=== PATIENT | female | born 1940 | race Caucasian/White ===

== ENCOUNTER 2023-10-19 07:04 | Inpatient (IN) ==
--- NOTE | 2023-09-26 10:02 | PAT Medication Instructions ---
Medication Instructions Date of Service September 26, 2023 Home Medications acetaminophen 650 mg tablet,extended release 1,300 mg PO Q12H amlodipine 5 mg tablet 5 mg PO BID ascorbic acid (vitamin C) 500 mg tablet (Vitamin C) 500 mg PO QAM aspirin 81 mg capsule 81 mg PO QPM carvedilol 6.25 mg tablet 6.25 mg PO BID coQ10 (ubiquinol) 200 mg capsule 200 mg PO QAM diphenhydramine HCl 25 mg capsule (Benadryl) 25 - 50 mg PO HS PRN Sleep ezetimibe 10 mg tablet 10 mg PO QPM fexofenadine 180 mg tablet 180 mg PO QAM glucosamine 750 fj-berkfofupnq-xni no1 644 mg-C 30 mg-jennifer 1 mg tablet (Osteo Bi-Flex Triple Strength) 1 tab PO BID hydrochlorothiazide 25 mg tablet 25 mg PO QAM levothyroxine 25 mcg tablet 25 mcg PO 5XWK levothyroxine 25 mcg tablet 50 mcg PO 2XWK losartan 100 mg tablet 100 mg PO QAM melatonin 5 mg tablet 5 - 10 mg PO HS PRN Sleep montelukast 10 mg tablet 10 mg PO HS multivitamin 1 tab PO HS pravastatin 20 mg tablet 20 mg PO QPM trazodone 50 mg tablet 50 mg PO HS PRN Sleep MEDICATION INSTRUCTIONS: ASK your prescriber and surgeon aspirin 81 mg capsule 81 mg PO QPM STOP taking 2 weeks before surgery coQ10 (ubiquinol) 200 mg capsule 200 mg PO QAM glucosamine 750 ik-hmluojyicqj-agy no1 644 mg-C 30 mg-jennifer 1 mg tablet (Osteo Bi-Flex Triple Strength) 1 tab PO BID DO NOT take the morning of surgery hydrochlorothiazide 25 mg tablet 25 mg PO QAM losartan 100 mg tablet 100 mg PO QAM ascorbic acid (vitamin C) 500 mg tablet (Vitamin C) 500 mg PO QAM fexofenadine 180 mg tablet 180 mg PO QAM Take morning of surgery With a small sip of water, OTHERWISE NOTHING TO EAT OR DRINK AFTER MIDNIGHT: carvedilol 6.25 mg tablet 6.25 mg PO BID acetaminophen 650 mg tablet,extended release 1,300 mg PO Q12H (if needed) amlodipine 5 mg tablet 5 mg PO BID levothyroxine 25 mcg tablet (whichever dose is scheduled for that day) Take evening before surgery carvedilol 6.25 mg tablet 6.25 mg PO BID acetaminophen 650 mg tablet,extended release 1,300 mg PO Q12H (if needed) amlodipine 5 mg tablet 5 mg PO BID melatonin 5 mg tablet 5 - 10 mg PO HS PRN Sleep montelukast 10 mg tablet 10 mg PO HS multivitamin 1 tab PO HS pravastatin 20 mg tablet 20 mg PO QPM trazodone 50 mg tablet 50 mg PO HS PRN Sleep diphenhydramine HCl 25 mg capsule (Benadryl) 25 - 50 mg PO HS PRN Sleep ezetimibe 10 mg tablet 10 mg PO QPM Other Notes If you have any questions please call us at [phone] or [phone] or [phone] or [phone]
--- NOTE | 2023-09-29 10:59 | Anesthesiology Consultation ---
Date of Service September 29, 2023 Assessment & Plan (1) Encounter for pre-operative examination: Plan - [facility] PCP pre-op 10/16/23. - echocardiogram at [facility] 10/11/23. - Outpatient joint assessment: Patient is currently scheduled for inpatient pathway. If re-evaluated and patient/surgeon requests outpatient pathway, patient is not recommended candidate for outpatient joint program from anesthesia standpoint. Chart Review Chart Review: Pending: Refer to Additional Notes / Consult section and Patient seen in Pre Admission Testing Teaching & Discussion Pre-Anesthesia Teaching/Discussion Notes: Instructed NPO after midnight before surgery, except medications with 15 cc of water. Medication instructions provided according to the PAT guidelines. History Surgery Operation Date: 10/19/23 14:30 Proposed Procedures p Left Total Knee Arthroplasty - Reji Gasca MD Height/Weight Height: 5 ft 3.75 in Weight: 90.9 kg Allergies Allergy/AdvReac Type Severity Reaction Status Date / Time SUSANA Inhibitors Allergy Severe facial Verified 09/25/23 15:16 swelling, difficulty breathing Penicillins Allergy Severe hives, Verified 09/25/23 15:16 throat swelling quinapril Allergy Severe angioedema Verified 09/28/23 16:13 diltiazem Allergy Intermediate itching, Verified 09/28/23 16:13 rash oxycodone Allergy Intermediate GI upset Verified 09/28/23 16:13 hydrocodone Allergy Unknown Verified 09/28/23 16:13 meloxicam Allergy Unknown Verified 09/28/23 16:13 salicylates Allergy Unknown Verified 09/28/23 16:13 aliskiren [From Tekturna] AdvReac Intermediate headaches Verified 09/28/23 16:13 citalopram AdvReac Intermediate apathy Verified 09/28/23 16:13 codeine AdvReac Mild Gastrointestinal Verified 09/25/23 15:16 Upset Medications Home Medications Medication Instructions Recorded Confirmed Last Taken acetaminophen 650 mg 1,300 mg PO Q12H 09/25/23 09/25/23 Unknown tablet,extended release amlodipine 5 mg tablet 5 mg PO BID 09/25/23 09/25/23 Unknown ascorbic acid (vitamin C) 500 mg 500 mg PO QAM 09/25/23 09/25/23 Unknown tablet (Vitamin C) aspirin 81 mg capsule 81 mg PO QPM 09/25/23 09/25/23 Unknown carvedilol 6.25 mg tablet 6.25 mg PO BID 09/25/23 09/25/23 Unknown coQ10 (ubiquinol) 200 mg capsule 200 mg PO QAM 09/25/23 09/25/23 Unknown diphenhydramine HCl 25 mg capsule 25 - 50 mg PO HS PRN Sleep 09/25/23 09/25/23 Unknown (Benadryl) ezetimibe 10 mg tablet 10 mg PO QPM 09/25/23 09/25/23 Unknown fexofenadine 180 mg tablet 180 mg PO QAM 09/25/23 09/25/23 Unknown glucosamine 750 gk-hwtovlgddac-ypm 1 tab PO BID 09/25/23 09/25/23 Unknown no1 644 mg-C 30 mg-jennifer 1 mg tablet (Osteo Bi-Flex Triple Strength) hydrochlorothiazide 25 mg tablet 25 mg PO QAM 09/25/23 09/25/23 Unknown levothyroxine 25 mcg tablet 25 mcg PO 5XWK 09/25/23 09/25/23 Unknown levothyroxine 25 mcg tablet 50 mcg PO 2XWK 09/25/23 09/25/23 Unknown losartan 100 mg tablet 100 mg PO QAM 09/25/23 09/25/23 Unknown melatonin 5 mg tablet 5 - 10 mg PO HS PRN Sleep 09/25/23 09/25/23 Unknown montelukast 10 mg tablet 10 mg PO HS 09/25/23 09/25/23 Unknown multivitamin 1 tab PO HS 09/25/23 09/25/23 Unknown pravastatin 20 mg tablet 20 mg PO QPM 09/25/23 09/25/23 Unknown trazodone 50 mg tablet 50 mg PO HS PRN Sleep 09/25/23 09/25/23 Unknown Past Medical History Medical History (Updated 09/29/23 @ 11:04 by Cheri Rucker PA-C) Ascending aorta dilatation follows with Dr. 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 Exercise / Class Metabolic Activity II 4-5 Yardwork/Stairs/Walk up hill (denies chest discomfort or shortness of breath with 1 FOS) Past Family History Family History Other Cancer Diabetes Heart disease No family history of adverse response to anesthesia Stroke Past Surgical History Surgical History (Updated 09/29/23 @ 11:09 by Cheri Rucker PA-C) H/O cystoscopy History of arthroscopy of shoulder pt cant remember which History of benign breast biopsy History of bilateral cataract extraction History of cardiac cath 2008 @ [facility] – [place]--due to abnormal stress echo--no stents placed--follows with Dr. Pizarro History of colonoscopy History of dilatation and curettage x2 History of hysterectomy 1988 History of rotator cuff surgery 2016 History of temporal artery biopsy History of tooth extraction Past Anesthesia History No Hx of Anesthesia Complications and No Family Hx of Anesthesia Complications History of PONV History of PONV (denies needing scop patch) and Hx of Motion Sickness Social History Smoking Status: Never smoker Do You Dip or Chew Tobacco: No Hx Alcohol Use: Yes Alcohol type: wine alcohol intake frequency: a few times a month Hx Substance Use: No substance use type: does not use Review of Systems Patient denies chest pain, shortness of breath, dyspnea on exertion, snoring, witnessed apneas, reflux, fever, chills, cough, wheezing, or palpitations. Physical Exam Vital Signs Vitals BP 140/73 P 59 TEMP 97.6 SP02 97% on RA RESP 17 Physical Patient resting comfortably in chair in no acute distress, alert and oriented, responding appropriately throughout visit Full cervical extension range of motion without pain TMD 3.5 finger breadths Mallampati Score 2 Dentition: several implants and caps/crowns; denies chipped or loose teeth, or bridges Lungs: normal respiratory effort. Good air movement, clear throughout to auscultation, no adventitious breath sounds Cardiac: regular rate and rhythm, no murmurs noted Carotid arteries: negative bruit bilat Lab Results Anesthesia Preop Results Results Anesthesia Widget: WBC 7.89 K/ul (4.8-10.8) 09/29/23 Hgb 12.1 g/dl (12.0-16.0) 09/29/23 Hct 36.0 % (37.0-47.0) L 09/29/23 Plt 309 K/uL (130-400) 09/29/23 Na 139 mmol/L (136-145) 09/29/23 K 4.1 mmol/L (3.5-5.1) 09/29/23 Cl 105 mmol/L (98-107) 09/29/23 CO2 25 mmol/L (21-32) 09/29/23 BUN 27 mg/dl (6-23) H 09/29/23 Creat 1.12 mg/dl (0.6-1.2) 09/29/23 Glucose Level 90 mg/dl (70-99(Fasting)) 09/29/23 PT 10.7 Seconds (9.0-12.0) 09/29/23 PTT 29 Seconds (21-31) 09/29/23 INR 1.0 (0.9-1.1) 09/29/23 Urine Color Yellow 09/29/23 Urine Appearance Clear (Clear) 09/29/23 Urine pH 5.5 (4.5-7.5) 09/29/23 Urine Specific [place] 1.020 (1.000-1.030) 09/29/23 Urine Protein Negative (Negative) 09/29/23 Urine Glucose (UA) Negative (Negative) 09/29/23 Urine Ketones Negative (Negative) 09/29/23 Urine Blood Negative (Negative) 09/29/23 Urine Nitrite Negative (Negative) 09/29/23 Urine Bilirubin Negative (Negative) 09/29/23 Urine Urobilinogen Negative (Negative) 09/29/23 Urine Leukocyte Esterase Trace (Negative) H 09/29/23 Urine WBC (Auto) 1-5 /hpf (0-5) 09/29/23 Urine RBC (Auto) 0-4 /hpf (0-4) 09/29/23 Urine Hyaline Casts (Auto) 0 /lpf (0-5) 09/29/23 Urine Epithelial Cells (Auto) 20-30 /lpf (0-5) H 09/29/23 Urine Bacteria (Auto) Negative (Negative) 09/29/23 Blood Type O Positive 09/29/23 Antibody Screen NEGATIVE 09/29/23 Testing Electrocardiogram Date: 09/22/23 Sinus bradycardia, rate 54 bpm Left axis deviation RBBB Chest X-Ray Date: 09/29/23 No acute cardiopulmonary findings. Cardiomegaly.
--- NOTE | 2023-10-17 12:11 | History & Physical Report ---
Date of Service October 17, 2023 Assessment & Plan (1) Primary osteoarthritis of left knee: Plan: Treatment options discussed with the patient. She has failed conservative measures and wish to proceed with surgery. Risks, benefits and alternatives to surgery including but not limited to infection, DVT, pain, stiffness, need for revision surgery, damage to blood vessels, damage to nerves, PE, , were discussed with the patient and they wish to proceed. Plan on left total knee arthroplasty scheduled for 10/19/23 at [facility] with Dr. Gasca. Plan on aspirin 81mg twice daily for 1 mo post op for DVT prophylaxis. Plan on inpatient rehab at [place] post op. All questions answered. F/u post op. History of Present Illness Chief Complaint: Left knee pain Primary Care Provider: Rajesh Griffith DO 83yo female with PMHx significant for HTN, CKD, high cholesterol, hypothyroid who presents with ongoing left knee pain. Pain is interfering with her daily activity. She has failed conservative measures and would like to proceed with surgery. Patient denies headaches, sweats, fevers, chills, double vision, blur red vision, cough, sore throat, dysphagia, chest pain, sob, wheezing, n/v/d/c, numbness, tingling, fatigue, urinary symptoms, mood disorders. ROS positive for left knee pain and stiffness. Allergies Allergy/AdvReac Type Severity Reaction Status Date / Time SUSANA Inhibitors Allergy Severe facial Verified 09/25/23 15:16 swelling, difficulty breathing Penicillins Allergy Severe hives, Verified 09/25/23 15:16 throat swelling quinapril Allergy Severe angioedema Verified 09/28/23 16:13 diltiazem Allergy Intermediate itching, Verified 09/28/23 16:13 rash oxycodone Allergy Intermediate GI upset Verified 09/28/23 16:13 hydrocodone Allergy Unknown Verified 09/28/23 16:13 meloxicam Allergy Unknown Verified 09/28/23 16:13 salicylates Allergy Unknown Verified 09/28/23 16:13 aliskiren [From Tekturna] AdvReac Intermediate headaches Verified 09/28/23 16:13 citalopram AdvReac Intermediate apathy Verified 09/28/23 16:13 codeine AdvReac Mild Gastrointestinal Verified 09/25/23 15:16 Upset Home Medications Medication Instructions Recorded Confirmed Type acetaminophen 650 mg 1,300 mg PO Q12H 09/25/23 09/25/23 History tablet,extended release amlodipine 5 mg tablet 5 mg PO BID 09/25/23 09/25/23 History ascorbic acid (vitamin C) 500 mg 500 mg PO QAM 09/25/23 09/25/23 History tablet (Vitamin C) aspirin 81 mg capsule 81 mg PO QPM 09/25/23 09/25/23 History carvedilol 6.25 mg tablet 6.25 mg PO BID 09/25/23 09/25/23 History coQ10 (ubiquinol) 200 mg capsule 200 mg PO QAM 09/25/23 09/25/23 History diphenhydramine HCl 25 mg capsule 25 - 50 mg PO HS PRN Sleep 09/25/23 09/25/23 History (Benadryl) ezetimibe 10 mg tablet 10 mg PO QPM 09/25/23 09/25/23 History fexofenadine 180 mg tablet 180 mg PO QAM 09/25/23 09/25/23 History glucosamine 750 ol-rtkbodyyfmg-brz 1 tab PO BID 09/25/23 09/25/23 History no1 644 mg-C 30 mg-jennifer 1 mg tablet (Osteo Bi-Flex Triple Strength) hydrochlorothiazide 25 mg tablet 25 mg PO QAM 09/25/23 09/25/23 History levothyroxine 25 mcg tablet 25 mcg PO 5XWK 09/25/23 09/25/23 History levothyroxine 25 mcg tablet 50 mcg PO 2XWK 09/25/23 09/25/23 History losartan 100 mg tablet 100 mg PO QAM 09/25/23 09/25/23 History melatonin 5 mg tablet 5 - 10 mg PO HS PRN Sleep 09/25/23 09/25/23 History montelukast 10 mg tablet 10 mg PO HS 09/25/23 09/25/23 History multivitamin 1 tab PO HS 09/25/23 09/25/23 History pravastatin 20 mg tablet 20 mg PO QPM 09/25/23 09/25/23 History trazodone 50 mg tablet 50 mg PO HS PRN Sleep 09/25/23 09/25/23 History Past Med/Surg History Medical History (Updated 10/17/23 @ 12:12 by Ambrocio Allison PA-C) RBBB Peripheral vascular disease Chronic kidney disease, stage 3 Dyslipidemia Hypothyroidism Ascending aorta dilatation follows with Dr. 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)/rash from it still/taste altered still from covid Nausea and vomiting after administration of anesthetic agent denies needing scop patch Hypertension controlled, stable per pt Surgical History (Updated 09/29/23 @ 11:09 by Cheri Rucker PA-C) H/O cystoscopy History of benign breast biopsy History of dilatation and curettage x2 History of arthroscopy of shoulder pt cant remember which History of colonoscopy History of temporal artery biopsy History of tooth extraction History of bilateral cataract extraction [place] cardiac [place] [facility] [place]due to abnormal stress echo--no stents placed--follows with Dr. Pizarro History of hysterectomy 1988 History of rotator cuff surgery 2016 Family History Other Cancer Diabetes Heart disease No family history of adverse response to anesthesia Stroke Social History (Updated 12/16/22 @ 15:46 by Katy Gordon) Smoking Status: Never smoker Second Hand Exposure: No; Do You Dip or Chew Tobacco: No; Tobacco Cessation Education Requested by Patient: No Hx Alcohol Use: Yes Alcohol type: wine Alcohol Intake Frequency: 2-4 x/Month Hx Substance Use: No Preferred Language: Ghanaian Communication Ability: Effective Rounder And Backer Required: No Beliefs That Will Affect Care: None Current Living Situation: Alone Other Information That Helps Us Care for You: No Feels Safe at Home: Yes Safety Concerns: Feels Safe At This Time Assistive Devices: Glasses Assistive Devices Comment: reading glasses Review of Systems All systems reviewed & are unremarkable except as noted in HPI & below Physical Exam Constitutional: well developed and well nourished; no acute distress Eyes: PERRL, conjunctivae normal, anicteric sclerae ENMT: external ear and nose normal, oropharynx normal Neck: trachea midline, no thyromegaly Respiratory: normal respiratory effort, lungs clear to auscultation Cardiovascular: RRR, no murmur, no edema Musculoskeletal: Left knee: moderate effusion, diffuse tenderness, ROM 0-130 degrees, stable to varus and valgus stress. Skin: no rashes, warm and dry Neurologic: patellar DTR's 2+ bilat, sensation intact Psychiatric: A+Ox3, euthymic affect Results & Data Diagnostic Findings Left knee radiographs demonstrate end stage osteoarthritis, bone on bone medially with periarticular osteophytes. There is subchondral sclerosis.
[~2023-10-19 07:04] MED LIST: BUPIVACAINE 0.5 % 5 MG/1 ML PF 10ML VIAL ONE; ROPIVACAINE 0.5% 5 MG/ML 30 ML VIAL ONE; ceFAZolin 2000MG 2,000 MG/15 ML SYR IV SCH
--- NOTE | 2023-10-19 08:06 | History & Physical Bridge Note ---
Date of Service October 19, 2023 History & Physical Bridge Note I have examined the patient, reviewed the History & Physical and in the interval since the performance of the History & Physical I have noted the following changes of clinical significance: no changes noted
[2023-10-19] MEDS: GABAPENTIN 300 MG CAP PO SCH (08:32)
[2023-10-19] MEDS: METOCLOPRAMIDE HCL 10 MG TABLET PO SCH (08:32)
[2023-10-19] MEDS: FAMOTIDINE 20 MG TAB PO SCH (08:32)
[2023-10-19] MEDS: ACETAMINOPHEN 500 MG TAB PO SCH ×2 (08:33→14:58)
[2023-10-19] MEDS: LR 60ML/HR IV SCH (08:33)
[2023-10-19] MEDS: dexAMETHasone**PF** 10 MG/ML VIAL IV SCH (08:33)
[2023-10-19] MEDS: LR 500ML BOLUS, THEN 15ML/HR IV SCH (08:33)
[2023-10-19] MEDS ORDERED: Nursing to Pharmacy Communication SCH (08:45)
[2023-10-19] MEDS: CeleBREX 200 MG CAP PO SCH (08:46)
[2023-10-19] MEDS ORDERED: MIDAZOLAM HCL 1 MG/ML 2ML VIAL ONE ×2 (08:59)
[2023-10-19] MEDS ORDERED: ATROPINE SULFATE 0.1 MG/ML 10ML SYR IV PRN (09:03)
[2023-10-19] MEDS ORDERED: ePHEDrine sulfate 50 MG/ML AMP IV PRN (09:03)
[2023-10-19] MEDS ORDERED: PROMETHAZINE HCL 6.25 MG in SODIUM CHLORIDE 0.9% 50 ML IV PRN (09:03)
[2023-10-19] MEDS ORDERED: HYDROmorphone INJ 2 MG/ML SYR/VIAL IV PRN (09:03)
[2023-10-19] MEDS ORDERED: fentaNYL citrate PF 100 MCG/2 ML VIAL IV PRN (09:03)
[2023-10-19] MEDS ORDERED: ONDANSETRON INJ 2 MG/ML 2 ML VIAL IV PRN (09:03)
[2023-10-19] MEDS: TRANEXAMIC ACID 1,000 MG **IV Pre-op IV SCH (09:16)
[2023-10-19] MEDS: ceFAZolin 2000MG 2,000 MG/15 ML SYR IV ONE (09:41)
[2023-10-19] MEDS: ORTHO JOINT ANESTHETIC ONE (10:38)
[2023-10-19] MEDS: ROPIV 0.5% 246mg, Ketorolac 30mg, EPINEPHrine 0.5mg in NSS INFIL SCH (10:38)
[2023-10-19] MEDS: TRANEXAMIC ACID 1,000 MG **IV Intra-op IV SCH (11:20)
--- NOTE | 2023-10-19 11:31 | Post Operative Brief Note ---
Immediate Post Op Note v1 Date of Surgery October 19, 2023 Pre & Post Diagnosis Operation Date: 10/19/23 09:45 Pre-Op Diagnosis: Ostoearthrits Knee left, history of Insufficiency fracture medial femoral condyle Post-Op Diagnosis: Ostoearthrits Knee left, history of insufficiency fracture medial femoral condyle I identified the patient and participated in the time-out.: Yes Procedure Operation Date: 10/19/23 09:45 Actual Procedures p Left Total Knee Arthroplasty(Left), lateral release, sharon and Acticoat superficial wound VAC application - Reji Gasca MD Surgeon Reji Gasca MD Delivery Nurse Ambrocio ESPINOZA Estimated Blood Loss 5 Findings Consistent with Post-Op Diagnosis Specimens bone cuts Drains Hemovac Drain Anesthesia Type MAC Spinal Regional Complications none Disposition Disposition: Recovery Room Overlapping Procedure I was present for: the critical portions of procedure.
--- NOTE | 2023-10-19 11:49 | Operative Report ---
Post Operative Report Pre & Post Diagnosis Operation Date: 10/19/23 09:45 Pre-Op Diagnosis: Ostoearthrits Knee left Post-Op Diagnosis: Ostoearthrits Knee left I identified the patient and participated in the time-out.: Yes Procedure Operation Date: 10/19/23 09:45 Actual Procedures p Left Total Knee Arthroplasty(Left) , lateral release, application sharon and Acticoat superficial wound VAC- Reji Gasca MD Surgeon Reji Gasca MD Ring Maker Ambrocio ESPINOZA Estimated Blood Loss 5 Findings Consistent with Post-Op Diagnosis Specimens bone cuts Drains 2 Hemovac Anesthesia Type MAC Spinal Regional Complications none Disposition Disposition: Recovery Room Indications 83-year-old female who had an insufficiency fracture medial femoral condyle which progressed to advanced osteoarthritis now [id number] medial compartment and moderately advanced patellofemoral osteoarthritis. Description of Procedure Patient taken to the operating room the size under Spinal MAC regional block anesthesia. Patient was placed supine on the operating table. A pneumatic tourniquet was placed about the left moderate obese upper thigh. The left lower extremity was prepped and draped in sterile fashion. Knee exam demonstrated knee effusion good range of motion varus knee no instability The leg was elevated exsanguinated with an Esmarch bandage and pneumatic tourniquet was raised to 325 millimeters of mercury. Skin incised sharply in longitudinal fashion. Subcutaneous flaps elevated. Incision was made through the medial ret inaculum extending up in the mid third of the quadriceps tendon and down to the medial tibial tubercle. Intra-articular findings demonstrated grade 4 medial compartment [id number] osteoarthritis grade 4 lateral compartment [id number] osteoarthritis. There was a large calcification anterior to the ACL calcified to the anterior medial meniscus. There was a loose body in the lateral gutter. There was chronic synovitis throughout the knee. There is grade 3 osteoarthritis patellofemoral joint. The Curvesn total knee arthroplasty system was used. To expose the knee the infrapatellar fat pad was resected. The meniscal remnants and cruciate ligaments were resected. The anterior fat pad over the femur in the area of the location of the anterior flange of the femoral component was resected. The lateral synovial bands were released. The calcification anteriorly was resected the loose body and lateral gutter was removed. The femur was exposed. An intramedullary drill hole was made into the canal. A guide marcos was placed. Distal femoral cutting guide was adjusted to resect a 5 degree valgus cut with 8 millimeters distal femur resected. The knee was extended and a subperiosteal peel lateral release was performed around the patella. Patella width was measured and width was reproduced using a freehand cut technique and a 33 symmetrical patella component. The 3 drill holes were made and the excess lateral facet was beveled off to prevent any impingement. Attention was taken back to the femur which was exposed with retractors and the femoral sizing guide was pinned in position. The drill holes were placed in 3 of external rotation to match the epicondylar axis. The femur sized for a[] component. The 4-in-1 cutting block was placed and then the anterior posterior and chamfer cuts are made. The tibia was then subluxed. The external tibial cutting guide was adjusted to make a perpendicular cut to the long axis of the tibia below the most deficient bone loss side. Cut was adjusted for slope. A lamina turner and former automatic was used and the flexion extension gaps were balanced. no releases were required. All meniscal remnants were resected. The tibia exposed and the trial tibial component size 3 was externally rotated in line with the tibial tubercle and pinned in position. The punch for stem was used. The notch cutting device was centered appropriat issac and the femoral notch cut was made. The femoral trial was inserted. Trial tibial inserts were placed and size 16 gave balanced ligaments through flexion and extension. Patella tracking was assessed. The patella tracked with some lateral patellar tilt so I did do a limited lateral release leaving the synovium intact and this corrected the patella tracking to central. The trial components were then removed and the orthomix anesthetic cocktail was injected per protocol. The knee was then copiously irrigated with pulsatile lavage saline solution. Final components were then cemented with Refobacin cement. Xperience irrigation placed over metal compoments prior to polyethylene insertion. Final components were[]. After the cement cured further pulsatile lavage irrigation was then performed with Xperience and 2 Hemovac drains were brought out laterally. The quadriceps tendon and medial retinaculum were closed with figure of 8 #1 Vicryl sutures. The knee was taken through full range of motion and the repair was secure. Knee range of motion was 0 through 130 degrees. The subcutaneous tissues were closed with 2-0 Vicryl sutures. Skin was closed with Surgical analisa. A sharon and Acticoat superficial wound VAC was applied. The patient tolerated the procedure well. Ambrocio ESPINOZA was my physician rehab assistant who participated as respiratory equipment assistant and was involved in all aspects of the procedure including patient positioning prepping and draping,leg positioning ,soft tissue retraction and instrument management and participated in the closing and application of the superficial wound VAC and will participate in postoperative care of the patient. The patient tolerated the procedure well. I attest to the content of the Intraoperative Record and any orders documented therein. Any exceptions are noted below.
[2023-10-19] MEDS ORDERED: PROPOFOL IV EMULSION 10 MG/ML 20 ML VIAL IV ONE (11:51)
[2023-10-19] MEDS ORDERED: LIDOCAINE 2% 2 ML VIAL/AMP(20MG/ML) INFIL ONE (11:51)
[2023-10-19] MEDS ORDERED: PHENYLEPHRINE 100MCG/ML 10ML SYR IV ONE (12:06)
--- NOTE | 2023-10-19 12:45 | XRay Report ---
XR knee LT 1 or 2V routine CLINICAL HISTORY: Postoperative evaluation. COMPARISON: None FINDINGS: Alignment of the total left knee arthroplasty is anatomic. There is no periprosthetic frac ture or unexpected radiopaque foreign body. There are surgical drains and skin analisa. IMPRESSION: Expected findings following total left knee arthroplasty. ACT 112: Negative or not required by law. Electronically signed by: Jean Cordoba M.D. 10/19/2023 12:44 PM
--- NOTE | 2023-10-19 12:50 | Anesthesiology Progress Note ---
Date of Service October 19, 2023 Anesthesia Post Procedure Vital Signs Vital Signs: Temp Pulse Pulse Resp BP Pulse Ox O2 Del Method 10/19/23 12:40 61 15 171/59 H 90 Room Air 10/19/23 12:30 56 L 17 179/74 H 96 Oxymask 10/19/23 12:20 57 L 14 171/74 H 97 Oxymask 10/19/23 12:10 36.1 C L 55 L 12 168/65 H 98 Oxymask 10/19/23 08:21 36.6 C 63 18 184/65 H 97 Room Air O2 Flow Rate 10/19/23 12:40 10/19/23 12:30 4 10/19/23 12:20 6 10/19/23 12:10 6 10/19/23 08:21 Pain Intensity Left Knee: Pain Intensity: 1 Transfer of Care Handoff Completed per policy Notes Mental Status: alert / awake / arousable and participated in evaluation Nausea / Vomiting: adequately controlled Pain: adequately controlled Airway Patency, RR, SpO2: stable & adequate BP & HR: stable & adequate Hydration State: stable & adequate Neuraxial Anesthesia: was administered and sensory block is resolving Anesthetic Complications: no major complications apparent and Pt Satisfied with anesthetic care
[2023-10-19] MEDS ORDERED: VANCOMYCIN CONSULT ACTIVE PRN (13:57)
[2023-10-19] MEDS ORDERED: METOCLOPRAMIDE HCL INJ 5 MG/ML 2 ML VIAL IV PRN (13:57)
[2023-10-19] MEDS ORDERED: bisacodyL 10 MG SUPP PR PRN (13:57)
[2023-10-19] MEDS ORDERED: NALOXONE HCL 0.4 MG/1 ML VIAL/CARP IV PRN (13:57)
[2023-10-19] MEDS ORDERED: MAGNESIUM HYDROXIDE SUSP 30 ML UDC PO PRN (13:57)
[2023-10-19] MEDS ORDERED: HYDROmorphone INJ 0.5 MG/0.5 ML SYR IV PRN (13:57)
[2023-10-19] MEDS: SODIUM CHLORIDE 0.9% 1,000 ML IV SCH (14:21)
[2023-10-19] MEDS: ALLERGY Noted to ORDERED Medication SCH (14:29)
[2023-10-19] MEDS: ONDANSETRON INJ 2 MG/ML 2 ML VIAL IV PRN (14:57)
[2023-10-19] MEDS: traMADol HCL 50 MG TABLET PO PRN (14:58)
--- NOTE | 2023-10-19 15:25 | Consultation ---
Date of Consultation October 19, 2023 Assessment & Plan (1) Post-operative state: s/p L TKA by Dr. Gasca EB 5cc POD #0 -pain/wound management per Ortho -VTE prophylaxis per Ortho (ASA 81mg PO BID), encourage early ambulation -incentive spirometry encouraged -CBC, BMP in am -PT/OT and activity restrictions per Ortho (2) Primary osteoarthritis of left knee: s/p L TKA elective today. Cont APAP and TRamadol as needed. Cont ICE and plan as above. (3) Hypertension: chronic, around goal. Cont amlodipine, HCTZ, Coreg and losartan per home regimen. (4) Chronic kidney disease, stage 3: chronic, stable. Baseline creatinine is around 1.2-1.4 per outpatient record review. (5) Dyslipidemia: Chronic, stable. Cont Pravachol and Zetia per home regimen. (6) Hypothyroidism: chronic, stable per recent TSH in Jun 12. Cont home levothyroxine. Thank you for this consultation. Agree with medications as ordered (reviewed with patient also). She is tolerating the Tramadol for pain management at this time. CBC/BMP in am. Cont standard DVT prophylaxis and need to consult case management for rehab evaluation. I spent a total [id number] coordinating, documenting, and providing care for this patient excluding time spent in the performance of separately billed services Mirna Addison DO [facility] History of Present Illness Requesting Physician: Dr. Gasca Reason for Consultation: post op management Attending Physician: Reji Gasca MD History of Present Illness 83-year-old female with ongoing left knee pain secondary to osteoarthritis. She underwent elective left total knee arthroplasty today with Dr. Soliz. She is feeling well postoperatively. She does have a history of nausea reactions with narcotics but is doing well on tramadol and pain is present but well-managed. She denies any other symptoms of shortness of breath, chest pain or other issues. She just finished her dinner. She verbalizes that she is planning on going to rehab as a transition to home as she lives alone. Medications were reviewed, allergies were reviewed. Allergies Allergy/AdvReac Type Severity Reaction Status Date / Time SUSANA Inhibitors Allergy Severe facial Verified 10/19/23 07:53 swelling, difficulty breathing Penicillins Allergy Severe hives, Verified 10/19/23 07:53 throat swelling quinapril Allergy Severe angioedema Verified 10/19/23 07:53 diltiazem Allergy Intermediate itching, Verified 10/19/23 07:53 rash meloxicam Allergy Unknown Verified 10/19/23 07:53 salicylates Allergy Unknown Verified 10/19/23 07:53 aliskiren [From Elayne] AdvReac Intermediate headaches Verified 10/19/23 07:53 citalopram AdvReac Intermediate apathy Verified 10/19/23 07:53 oxycodone AdvReac Intermediate GI upset Verified 10/19/23 07:53 codeine AdvReac Mild Gastrointestinal Verified 10/19/23 07:53 Upset hydrocodone AdvReac Unknown Nausea Verified 10/19/23 07:53 Home Medications Medication Instructions Recorded Confirmed Type acetaminophen 650 mg 1,300 mg PO Q12H PRN Pain 09/25/23 10/19/23 History tablet,extended release amlodipine 5 mg tablet 5 mg PO BID 09/25/23 10/19/23 History ascorbic acid (vitamin C) 500 mg 500 mg PO QAM 09/25/23 10/19/23 History tablet (Vitamin C) aspirin 81 mg capsule 81 mg PO QPM 09/25/23 10/19/23 History carvedilol 6.25 mg tablet 6.25 mg PO BID 09/25/23 10/19/23 History coQ10 (ubiquinol) 200 mg capsule 200 mg PO QAM 09/25/23 10/19/23 History diphenhydramine HCl 25 mg capsule 25 - 50 mg PO HS PRN Sleep 09/25/23 10/19/23 History (Benadryl) ezetimibe 10 mg tablet 10 mg PO QPM 09/25/23 10/19/23 History fexofenadine 180 mg tablet 180 mg PO QAM 09/25/23 10/19/23 History glucosamine 750 [id number] 1 tab PO BID 09/25/23 10/19/23 History no1 644 mg-C 30 mg-jennifer 1 mg tablet (Osteo Bi-Flex Triple Strength) hydrochlorothiazide 25 mg tablet 25 mg PO QAM 09/25/23 10/19/23 History levothyroxine 25 mcg tablet 25 mcg PO 5XWK 09/25/23 10/19/23 History levothyroxine 25 mcg tablet 50 mcg PO 2XWK 09/25/23 10/19/23 History losartan 100 mg tablet 100 mg PO QAM 09/25/23 10/19/23 History melatonin 5 mg tablet 5 - 10 mg PO HS PRN Sleep 09/25/23 10/19/23 History montelukast 10 mg tablet 10 mg PO HS 09/25/23 10/19/23 History multivitamin 1 tab PO HS 09/25/23 10/19/23 History pravastatin 20 mg tablet 20 mg PO QPM 09/25/23 10/19/23 History trazodone 50 mg tablet 50 mg PO HS PRN Sleep 09/25/23 10/19/23 History acetaminophen 500 mg tablet 1,000 mg (2 x 500 mg) PO Q8 #60 10/19/23 10/19/23 Rx (Tylenol Extra Strength) tabs aspirin 81 mg tablet,delayed 81 mg PO BID #60 tabs 10/19/23 10/19/23 Rx release Patient History Medical History Peripheral vascular disease Chronic kidney disease, stage 3 Dyslipidemia Hypothyroidism RBBB Ascending aorta dilatation follows with Dr. 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 Pizarro History of hysterectomy 1988 History of rotator cuff surgery 2017 Family History Other Cancer Diabetes Heart disease No family history of adverse response to anesthesia Stroke Social History Smoking Status: Never smoker Second Hand Exposure: No; Do You Dip or Chew Tobacco: No; Tobacco Cessation Education Requested by Patient: No Hx Alcohol Use: Yes Alcohol type: wine Alcohol Intake Frequency: 2-4 x/Month Hx Substance Use: No Preferred Language: Pashto Communication Ability: Effective Cooker Sulfate Required: No Beliefs That Will Affect Care: None Current Living Situation: Alone Other Information That Helps Us Care for You: No Feels Safe at Home: Yes Safety Concerns: Feels Safe At This Time Assistive Devices: Glasses Assistive Devices Comment: reading glasses Physical Exam Physical Exam: CONSTITUTIONAL: WNWD, vitals as above, generally well-appearing, NAD EYES: normal conjunctivae, no scleral icterus ENT: external ear and nose normal, MMM NECK: trachea midline RESPIRATORY: clear to auscultation bilaterally, no crackles, rales or wheezes, normal respiratory effort CARDIOVASCULAR: regular rate and rhythm, S1 and 2 heard without murmurs, gallops or rubs, no JVD, no peripheral edema CHEST: inspection of chest was normal GASTROINTESTINAL: soft, nontender, ND, no guarding MUSCULOSKELETAL: moving arms without issue. SCDs in place on lower legs, both legs NVI. Surgical dressing with hemovac in place on the left. head is normocephalic and atraumatic SKIN: warm and dry NEUROLOGIC: No facial palsy, no dysarthria. CN 2-12 grossly intact, no sensory deficit, normal cognition, normal speech, no tremor PSYCHIATRIC: alert cooperative and oriented to person, place and time. Euthymic mood, makes good eye contact, language grossly intact, recent and remote memory grossly intact. Results & Data Vital Signs (Past 12 Hours) Vital Signs Temp Pulse Pulse Resp BP Pulse Ox O2 Del Method 10/19/23 14:45 73 18 133/68 93 Room Air 10/19/23 14:15 62 18 144/54 H 96 Nasal Cannula 10/19/23 13:30 64 16 138/57 L 95 Nasal Cannula 10/19/23 13:10 36.3 C L 61 16 155/49 H 95 Nasal Cannula 10/19/23 13:00 61 14 164/57 H 94 Nasal Cannula 10/19/23 12:50 59 L 14 172/54 H 95 Nasal Cannula 10/19/23 12:40 61 15 171/59 H 90 Room Air 10/19/23 12:30 56 L 17 179/74 H 96 Oxymask 10/19/23 12:20 57 L 14 171/74 H 97 Oxymask 10/19/23 12:10 36.1 C L 55 L 12 168/65 H 98 Oxymask 10/19/23 08:21 36.6 C 63 18 184/65 H 97 Room Air O2 Flow Rate 10/19/23 14:45 10/19/23 14:15 2 10/19/23 13:30 3 10/19/23 13:10 3 10/19/23 13:00 3 10/19/23 12:50 3 10/19/23 12:40 10/19/23 12:30 4 10/19/23 12:20 6 10/19/23 12:10 6 10/19/23 08:21 Diagnostic Findings Knee X-Ray 10/19/23 10:22 XR knee LT 1 or 2V routine CLINICAL HISTORY: Postoperative evaluation. COMPARISON: None FINDINGS: Alignment of the total left knee arthroplasty is anatomic. There is no periprosthetic fracture or unexpected radiopaque foreign body. There are s urgical drains and skin analisa. IMPRESSION: Expected findings following total left knee arthroplasty. ACT 112: Negative or not required by law. Electronically signed by: Jean Cordoba M.D. 10/19/2023 12:44 PM Medications Administered Current Inpatient Medications Acetaminophen (Acetaminophen 500 Mg Tab) 1,000 mg PO Q8 [facility] Stop: 11/18/23 13:59 Last Admin: 10/19/23 14:58 Dose: 1,000 mg Amlodipine Besylate (Amlodipine Besylate 5 Mg Tab) 5 mg PO BID [facility] Stop: 11/19/23 08:59 Ascorbic Acid (Ascorbic Acid 500 Mg Tab) 500 mg PO QAM [facility] Stop: 11/19/23 08:59 Aspirin (Aspirin 81 Mg Ectab) 81 mg PO BID [facility] Stop: 11/18/23 20:59 Bisacodyl (Bisacodyl 10 Mg Supp) 10 mg [place] DAILY PRN PRN Reason: Constipation Stop: 11/18/23 13:56 Carvedilol (Carvedilol 6.25 Mg Tab) 6.25 mg PO BID [facility] Stop: 11/18/23 20:59 Docusate Sodium (Docusate Sodium 100 Mg Cap) 100 mg PO BID [facility] Stop: 11/18/23 20:59 Ezetimibe (Ezetimibe 10 Mg Tab) 10 mg PO QPM [facility] Stop: 11/18/23 20:59 Fexofenadine HCl (Fexofenadine Hcl 180 Mg Tab) 180 mg PO QAM [facility] Stop: 11/19/23 08:59 Hydrochlorothiazide (Hydrochlorothiazide 25 Mg Tab) 25 mg PO QAM [facility] Stop: 11/19/23 08:59 Hydromorphone HCl (Hydromorphone Inj 0.5 Mg/0.5 Ml Syr) 0.5 mg IV Q4H PRN PRN Reason: Pain or Pre PT Stop: 11/02/23 13:56 Sodium Chloride (Nss) 1,000 mls @ 100 mls/hr IV .Q10H [facility] Stop: 10/20/23 06:00 Last Admin: 10/19/23 14:21 Dose: 100 mls/hr Vancomycin HCl 1,250 mg/ (Sodium Chloride) 275 mls @ 200 mls/hr IV Q12H [facility] Stop: 10/19/23 21:53 Levothyroxine Sodium (Levothyroxine Sodium 25 Mcg Tablet) 25 mcg PO [id number]@0630 [facility] Stop: 11/19/23 06:29 Levothyroxine Sodium (Levothyroxine Sodium 50 Mcg Tablet) 50 mcg PO [id number]@0630 [facility] Stop: 11/21/23 06:29 Losartan Potassium (Losartan Potassium 50 Mg Tab) 100 mg PO QAM [facility] Stop: 11/19/23 08:59 Magnesium Hydroxide (Magnesium Hydroxide Susp 30 Ml Udc) 30 ml PO Q6H PRN PRN Reason: Constipation Stop: 11/18/23 13:56 Metoclopramide HCl (Metoclopramide Hcl Inj 5 Mg/Ml 2 Ml Vial) 10 mg IV Q6H PRN PRN Reason: Nausea And Vomiting Stop: 11/18/23 13:56 Montelukast Sodium (Montelukast Sodium 10 Mg Tablet) 10 mg PO HS [facility] Stop: 11/18/23 20:59 Multivitamins (Multivitamin Tab) 1 tab PO QAM [facility] Stop: 11/19/23 08:59 Naloxone HCl (Naloxone Hcl 0.4 Mg/1 Ml Vial/Carp) 0.1 mg IV Q5M PRN PRN Reason: Oversedation/Resp Depression Stop: 11/18/23 13:56 Ondansetron HCl (Ondansetron Inj 2 Mg/Ml 2 Ml Vial) 4 mg IV Q6H PRN PRN Reason: Nausea And Vomiting Stop: 11/18/23 13:56 Last Admin: 10/19/23 14:57 Dose: 4 mg Pravastatin Sodium (Pravastatin Sod 20 Mg Tab) 20 mg PO QPM [facility] Stop: 11/18/23 20:59 Sennosides (Senna 8.6 Mg Tab) 17.2 mg PO HS [facility] Stop: 11/18/23 20:59 Tramadol HCl (Tramadol Hcl 50 Mg Tablet) 50 - 100 mg PO Q4H PRN PRN Reason: Pain & Pre PT Stop: 11/18/23 13:56 Last Admin: 10/19/23 14:58 Dose: 50 mg Trazodone HCl (Trazodone Hcl 50 Mg Tab) 50 mg PO HS PRN PRN Reason: Sleep Stop: 11/18/23 13:56
--- OUTSIDE RECORDS SUMMARY | 2023-10-19 19:47 | External Medical Summary | Summary of Care ---
Author Name Unknown Organization [facility] Address [address] [facility] [place] [address] Phone [phone] Care Team Providers Care Professor Of English Name Role Phone Rajesh Griffith DO Primary Care Provider [phone] Reason for Visit * Reason Comments pre-op exam Info about heart ult rasound, L ear closed Encounter Details Date Type Department Care Team (Latest Contact Info) Description 10/16/2023 9:00 AM EST [facility] [address] [place] [address] Rajesh Griffith DO [address] [place] [address] Preop examination*; Primary osteoarthritis of left knee; Benign hypertension with stage 3b chronic kidney disease (HCC); Acquired hypothyroidism; Ascending aorta dilation (HCC); Enlarged LA (left atrium); Class 1 obesity due to excess calories with serious comorbidity and body mass index (BMI) of 33.0 to 33.9 in adult Allergies Active Allergy Reactions Criticality Noted Date Comments Amoxicillin 04/09/2002 swelling Diltiazem Hcl Itching,Rash 06/05/2005 Cephalexin 05/09/2023 Yeast infection Citalopram 01/23/2003 Celexa - felt like in "[place]" - no emotion Hydrocodone 10/02/2012 Meloxicam 02/26/2004 Ibuprofen is OK Oxycodone Hcl 02/23/2010 Made pt.vomit Penicillins Hives 10/07/2008 Quinapril Hcl 07/27/2005 Angioedema - [place] [facility] 02/20 Salicylates 02/26/2004 Bextra Ibuprofen is OK Aliskiren Fumarate 05/09/2008 headaches documented as of this encounter (statuses as of 10/16/2023) Medications Medication Sig Dispensed Refills Start Date End Date Status MULTIVITAMIN TABS OR one daily 0 05/30/2000 Active FLUTICASONE PROPIONATE 50 MCG/ACT NA SUSPIndications:Acu te serous otitis media 2 sqirts in ea nostril once daily 3 Bottle 3 06/17/2014 Active Additional Information Patient taking differently:Each Nostril,As needed, Reported on 10/18/2022 Simethicone 125 MG Oral Capsule Take by mouth as needed. 0 Active Sodium Hyaluronate 60 MG/3ML Intra-articular Prefilled Syringe ([employer]) Inject 1 syringe intra-articularl y into left knee once. 3 mL 0 01/04/2023 Active hydroCHLOROthiazide 25 MG Oral Tablet (Hydrodiuril) TAKE ONE TABLET BY MOUTH EVERY MORNING 90 Tablet 3 01/12/2023 4 Active Ezetimibe 10 MG Oral Tablet (Zetia)Indications: Dyslipidemia, goal LDL below 100 TAKE ONE TABLET BY MOUTH EVERY MORNING 90 Tablet 3 12/16/2022 4 Active traZODone HCl 50 MG Oral Tablet (Desyrel)Indication s:Insomnia, unspecified type TAKE ONE TABLET BY MOUTH EVERY DAY AT BEDTIME 90 Tablet 3 12/01/2022 4 Active Triamcinolone Acetonide 0.1 % External Lotion (Aristocort)Indicat ions:Dermatitis APPLY TO RASH ON BODY UP TO TWICE DAILY NEEDED 60 mL 2 11/10/2022 4 Active Carvedilol 6.25 MG Oral Tablet (Coreg)Indications: HTN, goal below 130/80,Dyslipidemia , goal LDL below 100,Preoperative cardiovascular examination TAKE ONE TABLET BY MOUTH EVERY DAY IN THE MORNING AND BEFORE BEDTIME 180 Tablet 3 11/03/2022 4 Active amLODIPine Besylate 5 MG Oral Tablet (Norvasc)Indication s:HTN, goal below 140/90 TAKE ONE TABLET BY MOUTH EVERY DAY IN THE MORNING AND BEFORE BEDTIME 180 Tablet 3 11/03/2022 4 Active Pravastatin Sodium 20 MG Oral Tablet (Pravachol)Indicati ons:Dyslipidemia, goal LDL below 100 TAKE ONE TABLET BY MOUTH AT BEDTIME 90 Tablet 3 11/02/2022 4 Active Losartan Potassium 100 MG Oral Tablet (Cozaar)Indications :HTN, goal below 140/90 TAKE ONE TABLET BY MOUTH EVERY DAY IN THE MORNING 90 Tablet 3 11/02/2022 4 Active NATURAL SUPPLEMENT Take 1 Capsule by mouth in the morning and 1 Capsule in the evening. Golo. 0 Active Vitamin D (Ergocalciferol) 1.25 MG (96865 UT) Oral Capsule (Drisdol)Indication s:Vitamin D deficiency Take 1 Capsule by mouth Every Month. 3 Capsule 1 06/06/2023 Active Levothyroxine Sodium 25 MCG Oral Tablet (Levoxyl) TAKE 1 TABLET BY MOUTH DAILY, EXCEPT THURSDAYS AND SUNDAYS TAKE 2 TABLETS A DAY (AT LEAST 30 MINUTES PRIOR TO BREAKFAST AND OTHER MEDS) 120 Tablet 1 08/10/2023 4 Active Montelukast Sodium 10 MG Oral Tablet (Singulair)Indicati ons:Seasonal allergies,Chronic allergic rhinitis TAKE ONE TABLET BY MOUTH EVERY NIGHT AT BEDTIME 90 Tablet 3 09/12/2023 5 Active GLUCOSAMINE CHONDROITIN COMPLX PO CAPS Take by mouth 2 times a day. 0 03/16/2007 4 Discontinu ed(Medicat ion List Clean Up) ASPIRIN 81 MG PO TABS Take by mouth at bedtime. 0 0 11/26/2007 4 Discontinu ed(Medicat ion List Clean Up) BENADRYL 25 MG PO CAPS 1 or 2 at night as needed 0 4 Discontinu ed(Medicat ion List Clean Up) COQ10 200 MG PO CAPS one tablet by mouth daily 0 4 Discontinu ed(Medicat ion List Clean Up) RONA 180 MG PO TABSIndications:Chr onic rhinitis,Allergic urticaria Take by mouth daily. 90 Tab 3 07/31/2014 4 Discontinu ed(Medicat ion List Clean Up) documented as of this encounter (statuses as of 10/16/2023) Active Problems Problem Noted Date Diagnosed Date Primary osteoarthritis of left knee 10/16/2023 Class 1 obesity due to exces s calories with serious comorbidity and body mass index (BMI) of 33.0 to 33.9 in adult 10/16/2023 Enlarged LA (left atrium) 10/16/2023 PVD (peripheral vascular disease) 06/27/2023 Ischial pain 06/27/2023 Chronic sinusitis 06/27/2023 Dysfunction of eustachian tube 06/27/2023 Hypothyroidism 11/10/2022 Ascending aorta dilation 08/26/2021 Overview: Seen by cardio 12/2020 will have repeat echocardiogram in 1 year follow-up of mild ascending aorta dilatation (4.2 cm 06/2020) Benign hypertension with stage 3b chronic kidney disease 12/29/2020 Overview: Per CKD protocol Hypothyroidism due to acquired atrophy of thyroi d 01/23/2020 Overview: TSH Results: Lab Results Component Value Date/Time TSH - [facility] 2.08 09/14/2020 08:38 AM TSH - [facility] 3.49 07/03/2019 07:15 AM TSH - [facility] 1.77 04/26/2018 08:19 AM Occipital neuralgia of right side 06/21/2018 Overview: 07/09/2019 rare symptoms 06/21/2018 Declines rx Abdominal aortic atherosclerosis 06/21/2018 History of shingles 06/20/2017 Family history of malignant neoplasm of ovary Advance directive discussed with patient 017 Overview: 02/23/2021 see office visit 06/21/2018 Will give 5 wishes brochure Discussed advance directive and living will 1 POA Alvin 2 POA brother Krishna Stewart [phone] given brochure . Encouraged again HTN, goal below 140/90 10/26/2015 Overview: 08/30 Renal art scan no obstrucion right, unalbe to assess left Lasix, spironlactone, coreg, clonidine, norvasc, cozaar 11/28 ua RBBB 10/22/2012 Dyslipidemia, goal LDL below 70 04/17/2012 History of multiple pulmonary nodules 12/23/2010 Overview: [address] CT 1. Stable noncalcified nodules dating back to June 2011, consistent with a benign process. No new nodules. No further imaging followup necessary. 2. Stable chronic findings as described. 12/29 6x7 mm nodule LLL. Repeat ct chest 6 months- stable 7 mm LLL and 6 mmRLL nodule; scarring vs bronchiectasis RLL. Repeat Ct 6 mos- stable 12/30. Repeat 12 months Peripheral vascular disease 06/23/2010 Overview: 06/20/2017 06/21/2018 denies change or claudication 05/30 could not obtain accurate NIKKO. Wave forms suggest mild vascular disease. Family history of premature CAD 12/18/2009 Family history of GI malignancy 12/17/2009 Overview: Cscope 04/28, 01/29 Inflammation; asympt to hold on treatment per gi. Repeat due 5 years minimum Osteopenia with high risk of fracture 12/17/2009 Overview: 02/23/2021 ov Discussed Discussed DEXA risk for fracture has just crossed to the high risk category. Last time took Prednisone was several months Reason for testing: Osteoporosis Current osteoporosis treatment (per questionnaire): None Major risk factors: personal history of fracture, current glucocorticoid use Using a Hologic PA images of the lumbar spine, left hip were obtained using DXA. The bone mineral density and T scores [standard, young, normal, female population] are as follows: RESULTS: Lumbar Spine: 1.198 gms/cm2 T-score: +1.4 Left femoral neck: 0.762 gms/cm2 T-score: -0.8 Using the NOF/WHO FRAX calculator, the 10 year absolute risk for any major osteoporotic fracture is 22 % and the risk for hip fracture is 3.8 %. 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 She is planning to engage in reg weight bearing exercise . Will repeat in 01/202301/26/2021(h/o fx and steroid use) Compared to a study that was performed on May 16, 2017, there has been no significant change at the lumbar spine and a significant decrease of 5.9 % the total hip. Letter to the patient : Your risk for fracture has just crossed to the high risk category. We will discuss the treatment at your upcoming appointment. Has had 2016 and 2017 p fx 05/02 low. Repeat 6-8 yr Vitamin D deficiency 12/17/2009 Overview: Nl 11/28 (off supplement due to calcium issue / renal consequences ) Metabolic syndrome 04/07/2009 GENERAL OSTEOARTHROSIS History of giant cell arteritis Overview: Txd with steroids for 18 months 2001 documented as of this encounter (statuses as of 10/16/2023) Resolved Problems Problem Noted Date Diagnosed Date Resolved Date Subconjunctival hemorrhage of left eye 06/27/2023 10/10/2023 Contusion of face 06/27/2023 10/10/2023 Contusion of left knee 06/27/202310/10 Stage 3 chronic kidney disease 11/10/2022 12/01/2022 Ceruminosis, left 08/26/2021 10/10/2023 Overview: 08/26/2021 will use debrox Neck pain on left side 08/26/202110/10 Overview: 08/26/2021 Will try capsaicin Loose bowel movements 08/26/20212023 Overview: 08/26/2021 Try Psyllium Benign hypertension with CKD (chronic kidney disease) stage III 02/02/2021 07/06/2023 Overview: Per CKD protocol Encounter for screening mamm ogram for breast cancer 09/22/2020 03/04/2022 Acute right-sided low back p ain with right-sided sciatica 12/25/2018 07/03/2019 Overview: acute Benign hypertension with chr onic kidney disease, stage III 06/20/2017 12/31/2020 Overview: Per CKD protocol Family history of colon cancer 12/20/2016 11/10/2022 Special screening for malign ant neoplasms, colon 12/20/2016 03/04/2022 Overview: 06/25/2021 Hyperplastic ?fu 06/22/2021Impression: Diverticulosis in the sigmoid colon and in the descending colon. One 10 mm polyp at the hepatic flexure, removed using injection-lift and a hot snare. Resected and retrieved.Hemorrhoids.. Consider repeat exam in 1 year to survey polypectomy site. Jovan Haile MD Impression: - Diverticulosis in the sigmoid colon and in the descending colon. - One 5 mm polyp at the splenic flexure, removed with a cold biopsy forceps. Resected and retrieved. - One 10 mm polyp at the splenic flexure, removed using injection-lift and a hot snare. Resected and retrieved. Clips were placed. - Hemorrhoids. Recommendation: Discharge pt home. Repeat exam in 3 years pending pathology review. Jovan Haile MD 07/19/2018 06/21/2018 accepts colonoscopy Kidney disease, chronic, sta ge III (GFR 30-59 ml/min) 11/03/2014 12/01/2017 Overview: Per CKD protocol #1 Renal artery stenosis 10/31/20112011 Impaired fasting glucose 06/19/2011 Anemia 08/05/2010 12/25/2018 Overview: Hemoglobin Results: HGB(g/dL) Aggie Dt/Tm Resulted Value Status 12/21/18 7:29A 12/21/18 12.1 FINAL 12/14/17 8:33A 12/14/17 12.5 FINAL 02/17/17 10:04A 02/17/17 12.2 FINAL 10/02 iron, b12, folate, epg serum normal. Hemoglobin Results: HGB(g/dL) Aggie Dt/Tm Resulted Value Status 12/19/16 7:14A 12/19/16 12.3 FINAL 04/29/16 12:29P 04/29/16 12.2 FINAL 10/16/15 10:47A 10/16/15 12.5 FINAL Severe obesity with body mas s index (BMI) of 35.0 to 39.9 with serious comorbidity 12/18/2009 Overview: 06/21/2018 BMI: 34.75 kg/m ICD-10 update of inactive diagnosis Menopause 12/18/2009 11/10/2022 Overview: S/p Armond for benign reasons age 44. No abn pap. Last pap 2004. Has ovaries Dyslipidemia, goal LDL below 70 07/23/2009 04/17/2012 Overview: With option of below 70 Simvastatin Side effect of atorvastatin Dyslipidemia, goal LDL below 70 07/23/2009 07/23/2009 Hypertrophic and atrophic condition of skin 04/30/2009 10/10/2023 Hypothyroidism 04/14/2009 03/04/2022 Overview: Levoxyl TSH Results: TSH(uIU/mL) Aggie Dt/Tm Resulted Value Status 07/03/19 7:15A 07/03/19 3.49 FINAL 04/26/18 8:19A 04/26/18 1.77 FINAL 12/14/17 8:33A 12/14/17 2.54 FINAL 04/26/18 8:19A 04/26/18 1.77 FINAL 12/14/17 8:33A 12/14/17 2.54 FINAL 12/19/16 7:14A 12/19/16 1.48 FINAL 12/19/16 7:14A 12/19/16 1.48 FINAL 09/02/15 8:44A 09/02/15 2.41 FINAL 07/29/14 8:12A 07/29/14 1.61 FINAL Dyslipidemia, goal to be determined 04/14/2009 07/23/2009 EXAMINATION OF PARTICIPANT I N CLINICAL TRIAL-genomics 04/08/2009 12/04/2009 Overview: Renamed Per Clinical Trials Billing Project. Study Titile: Genomic Markers for Patients with Cardiovascular Disease Project #[id number] PI: Jazzmine Carolina MD Please call [phone] with study related questions GENOMICS CARDIO RESEARCH OTHER*[id number] 04/08/2009 09/27/2016 Overview: Renamed Per Clinical Trials Billing Project. Study Titile: Genomic Markers for Patients with Cardiovascular Disease Project #[id number] PI: Jazzmine Carolina MD Please call [phone] with study related questions ABNORMAL stress echo LH 02/2604/07/2009 12/24/2018 Overview: Cath at [facility] 03/29 showed mild luminal irregularites and mild coronary calcification On statin, betablocker arb 06/30 carotid neg Benign neoplasm of skin of face 06/19/2008 12/18/2009 Angioedema from Accupril 03/26/2003 Other visual distortions and entoptic phenomena 02/06/2003 12/18/2009 Senile cataract 02/06/2003 12/18/2009 CHR ALLRG CONJUNCTIV NEC 02/02/2003 TEAR FILM INSUFFIC NOS 02/02/200312/18 Presbyopia 02/02/2003 12/18/2009 Other specified adjustment reaction 01/23/2003 12/18/2009 Need for prophylactic hormon e replacement therapy (postmenopausal) 04/06/2002 10/18/2022 Overview: 0.3 mg qod Perennial allergic rhinitis 12/11/2001 10/10/2023 Overview: Rona goldsmith. Flonase prn HTN, goal below 140/80 11/25 Overview: 08/30 Renal art scan no obstrucion right, unalbe to assess left Lasix, spironlactone, coreg, clonidine, norvasc, cozaar 11/28 ua Allergic urticaria 9 documented as of this encounter (statuses as of 10/16/2023) Immunizations Name Administration Dates Next Due COVID-19 mRNA, LNP-s, No Pre serve, 2-Dose Series (Pfizer) 07/12/2021,10/28/2020,09/30/2020 H1N1 2009 Influenza, IM 12/18/2009 Pneumococcal Conjugate Vacc, 13 Valent (Prevnar) 09/30/2015 Pneumococcal Polysaccharide PPV23 (Pneumovax) 06/12/2007 RSV Vac., Bivalent, Perfusio n F, Pf,0.5 Ml (Abrysvo) 09/14/2023 Season Influenza, Quad, PF, Adjuvanted, 65+ Yrs, IM (FLUAD) 05/02/2020 Seasonal Influenza, PF, 6 M & above, IM , (FluLaval or Fluzone) 05/18/2019,05/04/2018,06/08/2017 Seasonal Influenza, Quadriva lent Hd (Fluzone Hd) 05/09/2023,05/03/2021 Seasonal Influenza, Quadriva lent, No Preserve, IM 06/21/2016,06/13/2015 Seasonal Influenza, Split, I IV3, With Preserve, Inj 05/15/2014,05/23/2013,05/17/2012,06/01,06/15/2010,05/19/2009,06/04/2008 ,06/12/2007 TD, Preservative Free 05/08/2008 TDAP (age 10 and older)(Boostrix) 08/24/2018 Varicella Zoster Vaccine (Adult) 08/06/2010 Zoster Vaccine Recombinant (Shingrix) 06/16/2020 ,02/19/2020 documented as of this encounter Social History Tobacco Use Types Packs/Day Years Used Date Smoking Tobacco: Never Smokeless Tobacco: Never Tobacco Cessation:Counseling Given: Yes Alcohol Use Standard Drinks/Week Comments Yes 0 (1 standard drink = 0.6 oz pur e alcohol) rare PHQ-2 Answer Date Recorded PHQ Adult Total Score 0 06/06/2023 Hunger Vital Sign Answer Date Recorded Within the past 12 months, y ou worried that your food would run out before you got the money to buy more. Never true 06/06/20 23 Within the past 12 months, t he food you bought just didn't last and you didn't have money to get more. Never true 06/06/2023 Sex and Gender Information Value Date Recorded Sex Assigned at Female 12/25/2018 12:02 PM EDT Gender Identity Female 12/25/2018 12:02 PM EDT Sexual Orientation Straight 12/25/2018 12 :02 PM EDT Job Start Date Occupation Industry Not on file Not on file Not on file documented as of this encounter Last Filed Vital Signs Vital Sign Reading Time Taken Comments Blood Pressure 132/60 10/16/2023 9:09 AM EST Pulse 58 10/16/2023 9:09 AM EST Temperature 35.8 C (96.5 F) 10/16/2023 9:09 AM ES T Respiratory Rate - - Oxygen Saturation 95% 10/16/2023 9:09 AM EST Inhaled Oxygen Concentration - - Weight 89.8 kg (198 lb) 10/16/2023 9:09 AM EST Height - - Body Mass Index 33.99 09/07/2023 9:15 AM EST documented in this encounter Progress Notes * Rajesh Griffith DO - 10/16/2023 9:22 AM EST Images from the original note were not included. Pre-Operative Medical Evaluation Procedure Information Type of Surgery: left total knee arthroplasty Referring Physician / Surgeon: Dr. Gasca Date of procedure: 10/19/23 Brief History of Present Illness: Patient is an 83-year-old female here for preop medical clearance for left knee arthroplasty scheduled for 10/19/2023. Patient has a history of hypertension, CKD 3, hypothyroidism, ascending aortic dilatation and enlarged left atrium. Patient complains chronic severe left knee pain with increased difficulty walking.Patient denies fatigue fever chills or sweats. Patient denies nasal congestion sorethroat or earache. Patient denies cough or sputum. Patient denies chest pain shortness breath palpitations or edema. Patient denies abdominal pain nausea vomiting diarrhea constipation. Patient denies urinary frequency dysuria urgency or hematuria. Patient denies neck or back pain. Patient denies headache dizziness weakness or numbness. Patient denies skin rash or lesions. Review systems otherwise negative Medical History Problem List: PVD (peripheral vascular disease) (HCC) (06/27/2023) Subconjunctival hemorrhage of left eye (06/27/2023) Contusion of face (06/27/2023) Contusion of left knee (06/27/2023) Ischial pain (06/27/2023) Chronic sinusitis (06/27/2023) Dysfunction of eustachian tube (06/27/2023) Stage 3 chronic kidney disease (HCC) (11/10/2022) Hypothyroidism (11/10/2022) Ceruminosis, left (08/26/2021) Neck pain on left side (08/26/2021) Ascending aorta dilation (HCC) (08/26/2021) Loose bowel movements (08/26/2021) Benign hypertension with CKD (chronic kidney disease) stage III (HCC) (02/02/2021) Benign hypertension with stage 3b chronic kidney disease (HCC) (2020) Encounter for screening mammogram for breast cancer (09/22/2020) Hypothyroidism due to acquired atrophy of thyroid (01/23/2020) Acute right-sided low back pain with right-sided sciatica (12/25/2018) Occipital neuralgia of right side (06/21/2018) Abdominal aortic atherosclerosis (HCC) (06/21/2018) Benign hypertension with chronic kidney disease, stage III (HCC) () History of shingles (06/20/2017) Family history of malignant neoplasm of ovary (06/20/2017) Family history of colon cancer (12/20/2016) Special screening for malignant neoplasms, colon (12/20/2016) Advance directive discussed with patient (12/20/2016) HTN, goal below 140/90 (10/26/2015) Kidney disease, chronic, stage III (GFR 30-59 ml/min) (11/03/2014) RBBB (10/22/2012) Dyslipidemia, goal LDL below 70 (04/17/2012) Renal artery stenosis (HCC) (10/31/2011) Impaired fasting glucose (06/19/2011) History of multiple pulmonary nodules (12/23/2010) Anemia (08/05/2010) Peripheral vascular disease (HCC) (06/23/2010) Severe obesity with body mass index (BMI) of 35.0 to 39.9 with serious comorbidity (HCC) (12/18/2009) Family history of premature CAD (12/18/2009) Menopause (12/18/2009) Family history of GI malignancy (12/17/2009) Osteopenia with high risk of fracture (12/17/2009) Vitamin D deficiency (12/17/2009) Dyslipidemia, goal LDL below 70 (07/23/2009) Dyslipidemia, goal LDL below 70 (07/23/2009) Hypertrophic and atrophic condition of skin (04/30/2009) Hypothyroidism (04/14/2009) Dyslipidemia, goal to be determined (04/14/2009) EXAMINATION OF PARTICIPANT IN CLINICAL TRIAL-genomics (04/08/2009) GENOMICS CARDIO RESEARCH OTHER*[id number] (04/08/2009) Metabolic syndrome (04/07/2009) ABNORMAL stress echo LH 02/26 (04/07/2009) Benign neoplasm of skin of face (06/19/2008) Angioedema from Accupril (03/26/2003) Other visual distortions and entoptic phenomena (02/06/2003) Senile cataract (02/06/2003) CHR ALLRG CONJUNCTIV NEC (02/02/2003) TEAR FILM INSUFFIC NOS (02/02/2003) Presbyopia (02/02/2003) Other specified adjustment reaction (01/23/2003) Need for prophylactic hormone replacement therapy (postmenopausal) (04/06/2002) Perennial allergic rhinitis (12/11/2001) HTN, goal below 140/80 GENERAL OSTEOARTHROSIS History of giant cell arteritis Allergic urticaria Current Medications Montelukast Sodium 10 MG Oral Tablet (Singulair), TAKE ONE TABLET BY MOUTH EVERY NIGHT AT BEDTIME Levothyroxine Sodium 25 MCG Oral Tablet (Levoxyl), TAKE 1 TABLET BY MOUTH DAILY, EXCEPT THURSDAYS AND SUNDAYS TAKE 2 TABLETS A DAY (AT LEAST 30 MINUTES PRIOR TO BREAKFAST AND OTHER MEDS) Vitamin D (Ergocalciferol) 1.25 MG (35540 UT) Oral Capsule (Drisdol), 50,000 Units, Oral, Q Month NATURAL SUPPLEMENT, 1 Capsule, Oral, BID (0700,1900) hydroCHLOROthiazide 25 MG Oral Tablet (Hydrodiuril), TAKE ONE TABLET BY MOUTH EVERY MORNING Ezetimibe 10 MG Oral Tablet (Zetia), TAKE ONE TABLET BY MOUTH EVERY MORNING traZODone HCl 50 MG Oral Tablet (Desyrel), TAKE ONE TABLET BY MOUTH EVERY DAY AT BEDTIME Triamcinolone Acetonide 0.1 % External Lotion (Aristocort), APPLY TO RASH ON BODY UP TO TWICE DAILYAS NEEDED amLODIPine Besylate 5 MG Oral Tablet (Norvasc), TAKE ONE TABLET BY MOUTH EVERY DAY IN THE MORNING AND BEFORE BEDTIME Carvedilol 6.25 MG Oral Tablet (Coreg), TAKE ONE TABLET BY MOUTH EVERY DAY IN THE MORNING AND BEFORE BEDTIME Losartan Potassium 100 MG Oral Tablet (Cozaar), TAKE ONE TABLET BY MOUTH EVERY DAY IN THE MORNING Pravastatin Sodium 20 MG Oral Tablet (Pravachol), TAKE ONE TABLET BY MOUTH AT BEDTIME Simethicone 125 MG Oral Capsule, Take by mouth as needed. FLUTICASONE PROPIONATE 50 MCG/ACT NA SUSP, 2 sqirts in ea nostril once daily (Patient taking differently: Each Nostril, As needed) BENADRYL 25 MG PO CAPS, 1 or 2 at night as needed MULTIVITAMIN TABS OR, one daily Abrysvo 120 MCG/0.5ML Intramuscular Solution Reconstituted (RSV Pre-Fusion F A&B Vac [facility]), inject as directed Sodium Hyaluronate 60 MG/3ML Intra-articular Prefilled Syringe ([employer]), Inject 1 syringe intra-articularly into left knee once. RONA 180 MG PO TABS, Take by mouth daily. (Patient not taking: Reported on 10/16/2023) COQ10 200 MG PO CAPS, one tablet by mouth daily (Patient not taking: Reported on 10/16/2023) ASPIRIN 81 MG PO TABS, Take by mouth at bedtime. (Patient not taking: Reported on 10/16/2023) GLUCOSAMINE CHONDROITIN COMPLX PO CAPS, Take by mouth 2 times a day. (Patient not taking: Reported on 10/16/2023) Allergies: Amoxicillin, Cardizem [diltiazem hcl], Cephalexin, Citalopram, Hydrocodone, Meloxicam, Oxycontin [oxycodone hcl], Pcn [penicillins], Quinapril hcl [quinapril hcl], Salicylates, and Tekturna [aliskiren fumarate] Past Medical History: has a past medical history of ABNORMAL stress echo LH 02/26 (04/07/2009), Acute right-sided low backpain with right-sided sciatica (12/25/2018), Allergic urticaria, Allergic urticaria, Anemia (08/05/2010), Ceruminosis, left, Chest pain (11/1988), Chronic rhinitis, Colitis, Contusion of face, Contusion of left knee, Generalized osteoarthritis, Giant cell arteritis (HCC), HTN, goal below 140/90, Hypertrophic and atrophic condition of skin, Loose bowel movements, Neck pain on left side, Need for prophylactic hormone replacement therapy (postmenopausal), Other chronic allergic conjunctivitis, Other seborrheic keratosis, Other visual distortions and entoptic phenomena, Perennial allergic rhinitis, Presbyopia, Senile cataract, Subconjunctival hemorrhage of left eye, and Tear film insufficiency. Past Surgical History: has a past surgical history that includes Total Abd Hysterectomy w/wo Removal of Tube(s) (early ); ligation/biopsy of temporal artery (2001); colonoscopy (03/1992); colonoscopy (04/24/2008); catheterize left heart thru skin (04/08/2009); left heart catheterization (04/08/2009); Colonoscopy w/Biopsy (Rectum) (02/16/2011); pft b/a (07/2011); Place Catheter in Artery, First (11/09/2011); Colonoscopy, Diagnostic (Rectum) (06/18/2013); Colonoscopy, Diagnostic (Rectum) (N/A, 07/19/2018); Colonoscopy, Diagnostic (Rectum) (N/A, 07/19/2018); shoulder arthroscopy surgery; Colonoscopy, Diagnostic(Rectum) (N/A, 06/22/2021); Colonoscopy, Diagnostic (Rectum) (N/A, 02/17/2022); remove cataract, insert lens prosth (Left, 10/25/2022); and remove cataract, insert lens prosth (Right, 11/08/2022). Social History: reports that she has never smoked. She has never used smokeless tobacco. She reports current alcohol use. She reports that she does not use drugs. Family History: family history includes Breast Cancer in her cousin (maternal) and cousin (paternal); CVA in an other family member; Cancer in her father; Diabetes in her brother, father, and mother; Glaucoma in an other family member; Heart Disorder in her father and mother; Hypertension in an other family member; Ovarian cancer in her sister; Stroke in her daughter; labile HBP in her sister; skin cancer in herfather. Anesthesia History Type of Anesthesia: General Endotracheal and Caudal block Anesthesia reaction: No History of surgical complications: none Personal history of venous thromboembolic disease: no Physical Exam Vitals: 10/16/23 0909 Temp: 35.8 C (96.5 F) Pulse: 58 SpO2: 95% BP: 132/60 BP 132/60 (BP Site: Right Arm) | Pulse 58 | Temp 35.8 C (96.5 F) | Wt 89.8 kg (198 lb) | LMP (LMP Unknown) | SpO2 95% | BMI 33.99 kg/m | BSA 2.01 m General: alert, healthy, and no distress Head: Normocephalic, No masses, lesions, tenderness or abnormalities Eye Exam: PERRLA, extraocular movements intact, conjunctiva are pink and non- injected, sclera clear Ears: External ears normal, Canals clear, TM's Normal Nose: no mucosal erythema, no mucosal edema, no purulent discharge Oropharynx: no exudate, no erythema, lips, buccal mucosa, and tongue normal, and mucous membranes are moist Neck: supple, no adenopathy, no bruits, thyroid normal size, non-tender, without nodularity Lymph: no palpable lymphadenopathy Heart: regular rate & rhythm, no murmur, and no gallops Lungs: chest symmetric with normal AP diameter, no chest deformities noted, no chest wall tenderness, lungs clear to auscultation Pulses: carotid=2/4 w/o bruits Abdomen: abdomen soft, non-tender, normal bowel sounds, and no masses or organomegaly Back: back symmetric, no curvature, no costovertebral angle tenderness, range of motion is normal Extremities: Tenderness to palpation left knee with decreased range of motion flexion, positive Jeni's, negative Cody's, no edema cyanosis or clubbing Neuro Exam: alert & oriented x 3 with fluent speech, no focal motor/sensory deficits, gait normal, reflexes normal and symmetric Skin: skin color, texture, turgor are normal, no rashes or significant lesions Labs reviewed and are significant for: Results for orders placed or performed in visit on 10/13/23 ECHO, COMPLETE (2D), TRANS-THORACIC Result Value Ref Range LEFT VENTRICULAR EJECTION FRACTION 55 % *Note: Due to a large number of results and/or encounters for the requested time period, some results have not been displayed. A complete set of results can be found in Results Review. EKG by my review is significant for: Sinus bradycardia, left axis deviation, right bundle-branch block, Surgical Risk Scoring Revised Cardiac Risk Index (RCRI) High-risk type of surgery (examples include vascular and any open intraperitoneal or intrathoracic procedures): 0=No History of ischemic heart disease (history of myocardial infarction or positive exercise test, current compliant of chest pain considered to be secondary to myocardia ischemia, use of nitrate therapy, or ECG with pathological Q waves; do not count prior coronary revascularization procedure unless one of the other criteria for ischemic heart disease is present): 0=No History of heart failure: 0=No History of cerebrovascular disease: 0=No Diabetes mellitus requiring treatment with insulin: 0=No Preoperative serum creatinine >2.0 mg/dL (177 micromol/L): 0=No Pt has revised cardiac index score of: No Risk Factors- 0.4% (95% CI: 0.1-0.8) Screening for Obstructive Sleep Apnea (STOP-BANG) Do you Snore loudly? 0=No Do you often feel Tired, Fatigued, or Sleep? 0=No Has anyone Observed you Stop Breathing or Choking/Gasping during sleep? 0=No Do you have or are you being treated for High Blood Pressure? 0=No BMI over 35? 0=No Age older than 50? 1=Yes Neck size large? (For males - 17 inches or larger, For females - 16 inches or larger) 0=No Male? 0=No Score 0-2:low risk AMY, 3-4: intermediate risk of AMY, 5-8: high risk AMY 1 Assessment and Plan Preop examination Patient is medically stable for planned procedure Primary osteoarthritis of left knee Follow with orthopedic. Benign hypertension with stage 3b chronic kidney disease (HCC) Continue present medication Amlodipine 5 mg 1 tab twice daily Hydrochlorothiazide 25 mg 1 tab once daily Carvedilol 6.25 mg 1 tab twice daily Losartan 100 mg 1 tab once daily Acquired hypothyroidism Continue present medication Levothyroxine 25 mcg take 1 tab once daily on Monday , Monday and Monday, take 2 tablets once daily on and Monday Ascending aorta dilation (HCC) Stable Enlarged LA (left atrium) Follow with Cardiology Class 1 obesity due to excess calories with serious comorbidity and body mass index (BMI) of 33.0 to 33.9 in adult Reduced caloric intake diet and exercise Functional Assessment They are able to walk up a flight of stairs, walk two blocks at a moderate pace, do heavy house work like vacuuming, and grocery shop. The patient's functional status is good (greater than 4 METS). 1 MET: 4 METs: 4-10 METs: Can take care of self, such as eat, dress or use the toilet. Can walk to block or go up a flight of steps. Can do heavy house work. Surgical Risk Assessment Patient is low medical risk for the listed procedure. Medication adjustments: none Additional consults or testing: none documented in this encounter Plan of Treatment Upcoming Encounters Date Type Department Care Team (Latest Contact Info) Description 12/28/2023 9:00 AM EDT Nutrition Services Nutrition Services [address] [place] [address] Lyndsey Alegria, EMMA 30 [facility] [address] [place] [address] 01/19/2024 9:40 AM EDT Office Visit Family Practice [address] [place] [address] [place] [id number] Rajesh Grfifith DO [address] [place] [id number] 01/31/2024 11:40 AM EDT Office Visit [facility] [address] [facility] [place] [address] Ana Martino PA-C [address] [place] [address] 02/28/2024 8:00 AM EDT Hospital Encounter ENDO [facility], Endoscopy [address] [place] [phone] Jovan Haile MD [address] [place] [address] 02/28/2024 8:00 AM EDT - 02/28/2024 8:30 AM EDT Surgery ENDO [facility], Endoscopy [address] [place] [phone] Jovan Haile MD [address] [place] [address] COLONOSCOPY FLEXIBLE PROXIMAL DIAGNOSTIC 05/14/2024 10:00 AM EDT Nurse Only Ancillary, [place] [address] [place] [address] Dylon, Nurse [facility] [address] [place] [address] 07/09/2024 3:10 PM EST Office Visit Dermatology, Carmelo Dubose [address] [place] [address] Denice Rangel PA-C [address] [place] [id number] Scheduled Procedures Name Priority Associated Diagnoses Date/Ti me COLONOSCOPY FLEXIBLE PROXIMAL DIAGNOSTIC Polyp of colon, unspecified part of colon, unspecified type Family history of colon cancer in father 02/28/2024 8:00 AM EDT Health Maintenance Due Date Last Done Comments COLONOSCOPY-ANNUAL AGES 18-100 02/17/2023 02/17/2022, 02/17/2022, 06/22/2021, Additional history exists COVID-19 Vaccine ( season) 2023 07/12/2021, 10/28/2020, 09/30/2020 GFR 03/29/2024 09/29/2023, 05/23, 06/09/2023, Additional history exists Depression Screening 06/06/2024 06/06/2023 CKD PHOS USE SMARTSET 79144 06/09/202405/22, 06/06/2022, 08/23/2021, Additional history exists TSH 06/09/2024 06/09/2023, 05/21, 12/23/2021, Additional history exists Albumin/Creatinine Ratio 06/23/2024 023, 10/18/2022, 06/15/2017 CKD HGB USE SMARTSET 48149 09/29/202409/29, 11/10/2022, 11/10/2022, Additional history exists DXA Scan 01/25/2026 01/25/2021, 04/22, 04/24/2012, Additional history exists DTaP,Tdap,and Td Vaccines (2 - Td or Tdap) 08/24/2028 08/24/2018, 05/08/2008 Pneumococcal Vaccine: 65+ Years Completed 09/30/2015, 06/12/2007 Zoster Vaccines Completed 06/16/2020, 08/2019, 08/06/2010 COLONOSCOPY-EVERY 3 YRS AGES 18-100 Discontinued 02/17/2022, 02/17/2022, 06/22/2021, Additional history exists Influenza Vaccine (FLU shot) Completed 05/09/2023, 05/03/2021, 05/02/2020, Additional history exists GARDASIL-HPV IMMUNIZATION SERIES Aged Out No longer eligible based on patient's age to complete this topic Hepatitis B Aged Out No longer eligi ble based on patient's age to complete this topic MENINGOCOCCAL (MENACTRA/MENVEO) Aged Out No longer eligible based on patient's age to complete this topic documented as of this encounter Medical Devices Implanted Type Area Drier Helper Device Identifier Shelf Expiration Date Model / Serial / Lot Clip Quick 2.8mm 230cm - [id number] Implanted:Qty: 1 on 02/17/2022 by Jovan Haile MD at ENDOSCOPY [facility] [employer] 08/20/2022 [id number] / [id number] Lens Intraoc 22.5 - [id number] - [id number] Implanted:Qty: 1 on 10/25/2022 by Hector Pappas MD at OR [facility] Left: Eye [employer] 07/20/2027 [id number] / [id number] / [id number] Lens Intraoc 23.0 - [id number] - [id number] Implanted:Qty: 1 on 11/08/2022 by Hector Pappas MD at OR [facility] Right: Eye [employer] 08/20/2027 [id number] / [id number] / [id number] documented as of this encounter Visit Diagnoses Diagnosis Preop examination- Primary Preoperative examination, unspecified Primary osteoarthritis of left knee Primary localized osteoarthrosis, lower leg Benign hypertension with stage 3b chronic kidney disease (HCC) Acquired hypothyroidism Unspecified hypothyroidism Ascending aorta dilation (HCC) Thoracic aortic ectasia Enlarged LA (left atrium) Cardiomegaly Class 1 obesity due to excess calories with serious comorbidity and body mass index (BMI) of 33.0 to 33.9 in adult Polyp of colon, unspecified part of colon, unspecified type Family history of colon cancer in father documented in this encounter Advance Directives Documents on File Type Date Recorded 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 Question Answer Comments Discussion of Advance Directives occurred with: Patient Does the patient have a Living Will? No Does the patient have Health Care Power of It Support Engineer? No Code Status History Code Status Date Activated Date Inactivated Comments No Code 10/25/2022 8:20 AM 10/25/2022 2:59 PM This or larisa reflects the patients wishes and were consensually agreed upon. Question Answer Comments Discussion of Advance Directives occurred with: Patient Does the patient have a Living Will? No Does the patient have Health Care Power of It Support Engineer? No Care Teams Professor Of English Relationship Specialty Start Date End Date Rajesh Griffith DO [address] [place] [address] PCP - General Family Medicine 06/06/23 documented as of this encounter
--- OUTSIDE RECORDS SUMMARY | 2023-10-19 19:48 | External Medical Summary | Summary of Care ---
Author Name Unknown Organization [facility] Address [address] [place] [address] Phone [phone] Care Team Providers Care Strand And Binder Controller Name Role Phone Rajesh Griffith DO Primary Care Provider [phone] Encounter Details Date Type Department Care Team (Late st Contact Info) Description 10/02/2023 Documentation HEALTH & WELLNESS Sergey Singh, Health Emt/Dispatcher Allergies Active Allergy Reactions Criticality Noted Date Comments Amoxicillin 04/09/2002 swelling Diltiazem Hcl Itching,Rash 06/05/2005 Cephalexin 05/09/2023 Yeast infection Citalopram 01/23/2003 Celexa - felt like in "la[place]la land" - no emotion Hydrocodone 10/02/2012 Meloxicam 02/26/2004 Ibuprofen is OK Oxycodone Hcl 02/23/2010 Made pt.vomit Penicillins Hives 10/07/2008 Quinapril Hcl 07/27/2005 Angioedema - [facility] 02/20 Salicylates 02/26/2004 Bextra Ibuprofen is OK Aliskiren Fumarate 05/09/2008 headaches documented as of this encounter (statuses as of 10/03/2023) Medications Medication Sig Dispensed Refills Start Date End Date Status MULTIVITAMIN TABS OR one daily 0 05/30/2000 Acti ve GLUCOSAMINE CHONDROITIN COMPLX PO CAPS Take by mouth 2 times a day. 0 03/16/2007 Active ASPIRIN 81 MG PO TABS Take by mouth at bedtime. 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 90 Tab 3 07/31/2014 Active Simethicone 125 MG Oral Capsule Take by mouth as needed. 0 Active Sodium Hyaluronate 60 MG/3ML Intra-articular Prefilled Syringe (Durolane) Inject 1 syringe intra-articularly into left knee once. 3 mL 0 01/04/2023 Active hydroCHLOROthiazide 25 MG Oral Tablet (Hydrodiuril) TAKE ONE TABLET BY MOUTH EVERY MORNING 90 Tablet 3 01/12/2023 4 Active Ezetimibe 10 MG Oral Tablet (Zetia)Indications:D yslipidemia, goal LDL below 100 TAKE ONE TABLET BY MOUTH EVERY MORNING 90 Tablet 3 12/16/2022 4 Active traZODone HCl 50 MG Oral Tablet (Desyrel)Indications :Insomnia, unspecified type TAKE ONE TABLET BY MOUTH EVERY DAY AT BEDTIME 90 Tablet 3 12/01/2022 4 Active Triamcinolone Acetonide 0.1 % External Lotion (Aristocort)Indicati ons:Dermatitis APPLY TO RASH ON BODY UP TO TWICE DAILY NEEDED 60 mL 2 11/10/2022 4 Active Carvedilol 6.25 MG Oral Tablet (Coreg)Indications:H TN, goal below 130/80,Dyslipidemia, goal LDL below 100,Preoperative cardiovascular examination TAKE ONE TABLET BY MOUTH EVERY DAY IN THE MORNING AND BEFORE BEDTIME 180 Tablet 3 11/03/2022 4 Active amLODIPine Besylate 5 MG Oral Tablet (Norvasc)Indications :HTN, goal below 140/90 TAKE ONE TABLET BY MOUTH EVERY DAY IN THE MORNING AND BEFORE BEDTIME 180 Tablet 3 11/03/2022 4 Active Pravastatin Sodium 20 MG Oral Tablet (Pravachol)Indicatio ns:Dyslipidemia, goal LDL below 100 TAKE ONE TABLET BY MOUTH AT BEDTIME 90 Tablet 3 11/02/2022 4 Active Losartan Potassium 100 MG Oral Tablet (Cozaar)Indications: HTN, goal below 140/90 TAKE ONE TABLET BY MOUTH EVERY DAY IN THE MORNING 90 Tablet 3 11/02/2022 4 Active NATURAL SUPPLEMENT Take 1 Capsule by mouth in the morning and 1 Capsule in the evening. Golo. 0 Active Vitamin D (Ergocalciferol) 1.25 MG (65696 UT) Oral Capsule (Drisdol)Indications :Vitamin D deficiency Take 1 Capsule by mouth Every Month. 3 Capsule 1 06/06/2023 Active Levothyroxine Sodium 25 MCG Oral Tablet (Levoxyl) TAKE 1 TABLET BY MOUTH DAILY, EXCEPT THURSDAYS AND SUNDAYS TAKE 2 TABLETS A DAY (AT LEAST 30 MINUTES PRIOR TO BREAKFAST AND OTHER MEDS) 120 Tablet 1 08/10/2023 4 Active Montelukast Sodium 10 MG Oral Tablet (Singulair)Indicatio ns:Seasonal allergies,Chronic allergic rhinitis TAKE ONE TABLET BY MOUTH EVERY NIGHT AT BEDTIME 90 Tablet 3 09/12/2023 5 Active documented as of this encounter (statuses as of 10/03/2023) Active Problems Problem Noted Date Diagnosed Date PVD (peripheral vascular disease) 06/27/2023 Subconjunctival hemorrhage of left eye 3 Contusion of face 06/27/2023 Contusion of left knee 06/27/2023 Ischial pain 06/27/2023 Chronic sinusitis 06/27/2023 Dysfunction of eustachian tube 06/27/2023 Hypothyroidism 11/10/2022 Ceruminosis, left 08/26/2021 Overview: 08/26/2021 will use debrox Neck pain on left side 08/26/2021 Overview: 08/26/2021 Will try capsaicin Ascending aorta dilation 08/26/2021 Overview: Seen by cardio 12/2020 will have repeat echocardiogram in 1 year follow-up of mild ascending aorta dilatation (4.2 cm 06/2020) Loose bowel movements 08/26/2021 Overview: 08/26/2021 Try Psyllium Benign hypertension with stage 3b chronic kidney [...] POA Alvin 2 POA brother Krishna Stewart [phone] given brochure . Encouraged again HTN, goal below 140/90 10/26/2015 Overview: 08/30 Renal art scan no obstrucion right, unalbe to assess left Lasix, spironlactone, coreg, clonidine, norvasc, cozaar 11/28 ua RBBB 10/22/2012 Dyslipidemia, goal LDL below 70 04/17/2012 History of multiple pulmonary nodules 12/23/2010 Overview: 2013 CT 1. Stable noncalcified nodules dating back [...] hip fracture is 3.8 %. 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 h/o somewhat atypical [...] to calcium issue / renal consequences ) Hypertrophic and atrophic condition of skin 04/21 Metabolic syndrome 04/07/2009 Perennial allergic rhinitis 12/11/2001 Overview: Rona goldsmithDaniel Aditya prn GENERAL OSTEOARTHROSIS History of giant cell arteritis Overview: Txd with steroids for 18 months 2001 documented as of this encounter (statuses as of 10/03/2023) Resolved Problems Problem Noted Date Diagnosed Date Resolved Date Stage 3 chronic kidney disease 11/10/2022 12/01/2022 Benign hypertension with CKD (chronic kidney disease) [...] 08/05/2010 12/25/2018 Overview: Hemoglobin Results: HGB(g/dL) Aggie Dt[employer] Resulted Value Status 12/21/18 7:29A 12/21/18 12.1 FINAL 12/14/17 8:33A 12/14/17 12.5 FINAL 02/17/17 10:04A 02/17/17 12.2 FINAL 10/02 iron, b12, folate, epg serum normal. Hemoglobin Results: HGB(g/dL) Aggie Dt/Lomaki Resulted Value Status 12/19/16 7:14A 12/19/16 12.3 [...] Dyslipidemia, goal LDL below 70 07/23/2009 07/23/2009 Hypothyroidism 04/14/2009 03/04/2022 Overview: Levoxyl TSH Results: [...] Markers for Patients with Cardiovascular Disease Project #[id number] PI: Jazzmine Carolina MD Please call [phone] with study related questions GENOMICS CARDIO RESEARCH OTHER*[id number] 04/08/2009 09/27/2016 Overview: Renamed Per Clinical Trials Billing Project. Study Titile: Genomic Markers for Patients with Cardiovascular Disease Project #[id number] PI: Jazzmine Carolina MD Please call [phone] with study related questions ABNORMAL stress echo LH 02/2604/07/2009 12/24/2018 [place] [facility] [place] showed mild luminal irregularites and mild [...] (postmenopausal) 04/06/2002 10/18/2022 Overview: 0.3 mg qod HTN, goal below 140/80 11/25 Overview: 08/30 Renal art scan no obstrucion right, unalbe to assess left Lasix, spironlactone, coreg, clonidine, norvasc, cozaar 11/28 ua Allergic urticaria 9 documented as of this encounter (statuses as of 10/03/2023) Immunizations Name Administration Dates Next Due COVID-19 mRNA, LNP-s, No Pre serve, 2-Dose Series (Sports[employer]) 07/12/2021,10/28/2020,09/30/2020 H1N1 2009 Influenza, IM 12/18/2009 Pneumococcal [...] Date Smoking Tobacco: Never Smokeless Tobacco: Never Alcohol Use Standard Drinks/Week Comments Yes 0 [...] on file documented as of this encounter Progress Notes * Sergey Singh Health Emt/Dispatcher - 10/03/2023 9:54 AM EST Images from the original note were not included. SESSION TYPE: One-on-one exercise session: Exercise Subtype or Modality: Multi Exercise Weight: Blood pressure: Planned Exercise Routine: Whole body workout Frequency: 2x week Duration: 30-45 minutes documented in this encounter Plan of Treatment Upcoming Encounters Date Type Department Care Team (Latest Contact Info) Description 10/04/2023 11:30 AM EST Office Visit Family Practice [address] [place], [place] [address]D[place] [address] [place] [address] [place] [address] [place], Health Emt/Dispatcher Fam Prac [address] [place] [address] 10/09/2023 12:45 PM EST Office Visit Family Practice 65 [facility] [place] [address] [place] [address] [facility] Health Emt/Dispatcher Fam Prac [address] [place] [address] 10/11/2023 8:00 AM EST Cardiac Studies Cardiac Studies, [facility] [address] [facility] [place] [address] 10/11/2023 3:00 PM EST Office Visit Family Practice 65 [facility] [address] [place] [address] [place], Health Emt/Dispatcher Fam Prac [address] [place] [address] 10/13/2023 9:00 AM EST Nutrition Services Nutrition Services 65 [facility] [address] [place] [address] Lyndsey Alegria, EMMA 30 [facility] 11 [place] [address] 10/16/2023 9:00 AM EST Office Visit Family [facility] 65 [facility] [place] [address] [place] [address] Rajesh Griffith, DO [address] [place] [address] 01/08/2024 11:00 AM EDT Cardiac Studies Cardiac Studies, [facility] 132 [facility] [place] [address] 01/31/2024 11:40 AM EDT Office Visit Otolaryngology [facility] 132 [facility] [place] [address] Ana Martino PA-C [address] [place] [address] 02/28/2024 8:00 AM EDT Hospital Encounter ENDO [facility], Endoscopy [address] [place] [phone] Jovan Haile MD [address] [place] [address] 02/28/2024 8:00 AM EDT - 02/28/2024 8:30 AM EDT Surgery ENDO GE, Endoscopy [address] [place] [phone] Jovan Haile MD [address] [place] [address] COLONOSCOPY FLEXIBLE PROXIMAL DIAGNOSTIC 05/14/2024 10:00 AM EDT Nurse Only Ancillary, [place] [address] [place] [address] [place], Nurse Annual Wellness [address] [place] [address] 07/09/2024 3:10 PM EST Office Visit Dermatology, Carmelo Dubose [address] [place] [address] Denice Rangel PA-C [address] [place] [address] [place] [address] Scheduled Procedures Name Priority Associated Diagnoses Date/Ti [...] Screening 06/06/2024 06/06/2023 CKD PHOS USE SMARTSET 80728 06/09/202405/22, 06/06/2022, 08/23/2021, Additional history exists TSH 06/09/2024 06/09/2023, 05/21, 12/23/2021, Additional history exists Albumin/Creatinine Ratio 06/23/2024 023, 10/18/2022, 06/15/2017 CKD HGB USE SMARTSET 93077 09/29/202409/29, 11/10/2022, 11/10/2022, Additional history exists DXA Scan 01/25/2026 01/25/2021, 04/22, 04/24/2012, Additional history exists DTaP,Tdap,and Td Vaccines (2 - Td or Tdap) 08/24/2028 08/24/2018, 05/08/2008 Pneumococcal Vaccine: 65+ Years Completed 09/30/2015, 06/12/2007 Zoster Vaccines Completed 06/16/2020, 0708/2019, 08/06/2010 COLONOSCOPY-EVERY 3 YRS AGES 18-100 Discontinued [...] this encounter Medical Devices Implanted Type Area Child Custody Evaluator Device Identifier Shelf Expiration Date Model / Serial / Lot Clip Quick 2.8mm 230cm - [id number] Implanted:Qty: 1 on 02/17/2022 by Jovan Haile MD at ENDOSCOPY [employer] 08/20/2022 [id number]-202UR.[id number] / / [id number] Lens Intraoc 22.5 - [id number] - [id number] Implanted:Qty: 1 on 10/25/2022 by Hector Pappas MD at OR [facility] Left: Eye [employer] LOMB 07/20/2027 [id number] / [id number] / [id number] Lens Intraoc 23.0 - [id number] - [id number] Implanted:Qty: 1 on 11/08/2022 by Hector Pappas MD at OR [facility] Right: Eye BAUSCH [employer] LOMB 08/20/2027 [id number] / [id number] / [id number] documented as of this encounter Advance Directives Documents on File Type Date Recorded 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 Question Answer Comments Discussion of Advance Directives occurred with: Patient Does the patient have a Living Will? No Does the patient have Health Care Power of Director Of Strategic Communications? No Code Status History Code Status Date Activated Date Inactivated Comments No Code 10/25/2022 8:20 AM 10/25/2022 2:59 PM This or larisa reflects the patients wishes and were consensually agreed upon. Question Answer Comments Discussion of Advance Directives occurred with: Patient Does the patient have a Living Will? No Does the patient have Health Care Power of Director Of Strategic Communications? No Care Teams Strand And Binder Controller Relationship Specialty Start Date End Date Rajesh Griffith DO [address] [place] [id number] PCP - General Family Medicine 06/06/23 documented as of this encounter
--- OUTSIDE RECORDS SUMMARY | 2023-10-19 19:48 | External Medical Summary | Summary of Care ---
Author Name Unknown Organization [facility] Address [address] [place] [address] Phone [phone] Care Team Providers Care Registered Nurse Cardiovascular Icu Name Role Phone Bruce Griffithinic Primary Care Provider [phone] Encounter Details Date Type Department Care Team (Late st Contact Info) Description 10/04/2023 Documentation HEALTH & WELLNESS Sergey Singh, Health Photo Technician Allergies Active Allergy Reactions Criticality Noted Date Comments Amoxicillin 04/09/2002 swelling Diltiazem Hcl Itching,Rash 06/05/2005 Cephalexin 05/09/2023 Yeast infection Citalopram 01/23/2003 Celexa - felt like in "la-la land" - no emotion Hydrocodone 10/02/2012 Meloxicam 02/26/2004 Ibuprofen is OK Oxycodone Hcl 02/23/2010 Made pt.vomit Penicillins Hives 10/07/2008 Quinapril Hcl 07/27/2005 Angioedema - [place] [facility] 02/20 Salicylates 02/26/2004 Bextra Ibuprofen is OK Aliskiren Fumarate 05/09/2008 headaches documented as of this encounter (statuses as of 10/05/2023) Medications Medication Sig Dispensed Refills Start Date [...] Reported on 10/18/2022 RONA 180 MG PO TABSIndications: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 [...] 0 Active Vitamin D (Ergocalciferol) 1.25 MG (84124 UT) Oral Capsule (Drisdol)Indications :Vitamin D deficiency [...] as of this encounter (statuses as of 10/05/2023) Active Problems Problem Noted Date Diagnosed Date [...] POA Alvin 2 POA brother Krishna Stewart [phone] given brochure . Encouraged again HTN, goal [...] hip fracture is 3.8 %. 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 Hemoglobin Results: HGB(g/dL) Aggie Dt[employer] Resulted Value Status 12/19/16 7:14A 12/19/16 12.3 [...] Markers for Patients with Cardiovascular Disease Project #[id number] PI: Jazzmine Carolina MD Please call [phone] with study related questions GENOMICS CARDIO RESEARCH OTHER*[id number] 04/08/2009 09/27/2016 Overview: Renamed Per Clinical Trials Billing Project. Study Titile: Genomic Markers for Patients with Cardiovascular Disease Project #[id number] PI: Jazzmine Carolina MD Please call [phone] with study related questions ABNORMAL stress echo [...] as of this encounter (statuses as of 10/05/2023) Immunizations Name Administration Dates Next Due COVID-19 mRNA, LNP-s, No Pre serve, 2-Dose Series (Hazel Mail) 07/12/2021,10/28/2020,09/30/2020 H1N1 2009 Influenza, IM 12/18/2009 Pneumococcal [...] encounter Progress Notes * Sergey Singh Health Photo Technician - 10/05/2023 2:06 PM EST Images from the original note were not included. SESSION TYPE: One-on-one exercise session: Exercise Subtype or Modality: Multi Exercise Weight: Blood pressure: Planned Exercise Routine: Prep for knee replacement Frequency: 2x week Duration: 30-45 minutes documented in this encounter Plan of Treatment Upcoming Encounters Date Type Department Care Team (Latest Contact Info) Description 10/09/2023 12:45 PM EST Office Visit Family Practice [address] [place], [place] [address]D[place] [address] [place] [address] [place] [address] [place], Health Photo Technician Fam Prac [address] [place] [address] 10/11/2023 8:00 AM EST Cardiac Studies Cardiac Studies, [facility] [place] [address] 10/11/2023 3:00 PM EST Office Visit Family Practice [address] [place] [address] [place] [address] Dylon Health Photo Technician Fam Prac [address] [place] [address] 10/13/2023 9:00 AM EST Nutrition Services Nutrition Services [address] [place] [address] [place] [address] Lyndsey Alegria, HERIN 30 [facility] 11 [place] [address] 10/13/2023 12:30 PM EST Office Visit Family Practice [address] [place] [address] [place] [address] Dylon Health Photo Technician Fam Prac [address] [place] [address] 10/16/2023 9:00 AM EST Office Visit Family Practice 65 [place]ylon [place] [address] [place] [address] Rajesh Griffith, [address] [place] [address] 10/16/2023 2:00 PM EST Office Visit Family Practice [address] [place] [address] [place] [address] Dylon Health Photo Technician Fam Prac [address] [place] [address] 01/08/2024 11:00 AM EDT Cardiac Studies Cardiac Studies, [facility] [address] [place] [address] 01/31/2024 11:40 AM EDT Office Visit Otolaryngology [facility] [address] [place] [address] Ana Martino PA-C [address] [place] [address] 02/28/2024 8:00 AM EDT Hospital Encounter ENDO [facility], Endoscopy [address] [phone] Jovan Haile MD [address] [place] [address] 02/28/2024 8:00 AM EDT - 02/28/2024 8:30 AM EDT Surgery ENDO [facility], Endoscopy [address] [phone] Jovan Haile MD [address] [place] [address] COLONOSCOPY FLEXIBLE PROXIMAL DIAGNOSTIC 05/14/2024 10:00 AM EDT Nurse Only Ancillary, [place] [address] [place] [address] [place], Nurse Annual Wellness [address] [place] [address] 07/09/2024 3:10 PM EST Office Visit Dermatology, Carmelo Dubose [address] [place] [address] Denice Rangel PA-C [address] [place] [address] Scheduled Procedures Name Priority Associated Diagnoses Date/Ti [...] Screening 06/06/2024 06/06/2023 CKD PHOS USE SMARTSET 40995 06/09/202405/22, 06/06/2022, 08/23/2021, Additional history exists TSH 06/09/2024 06/09/2023, 05/21, 12/23/2021, Additional history exists Albumin/Creatinine Ratio 06/23/2024 023, 10/18/2022, 06/15/2017 CKD HGB USE SMARTSET 83700 09/29/202409/29, 11/10/2022, 11/10/2022, Additional history exists DXA Scan 01/25/2026 01/25/2021, 04/22, 04/24/2012, Additional history exists DTaP,Tdap,and Td Vaccines (2 - Td or Tdap) 08/24/2028 08/24/2018, 05/08/2008 Pneumococcal Vaccine: 65+ Years Completed 09/30/2015, 06/12/2007 Zoster Vaccines Completed 06/16/2020, 07/0 08/2019, 08/06/2010 COLONOSCOPY-EVERY 3 YRS AGES 18-100 [...] this encounter Medical Devices Implanted Type Area Traffic Operator Device Identifier Shelf Expiration Date Model / Serial / Lot Clip Quick 2.8mm 230cm - [id number] Implanted:Qty: 1 on 02/17/2022 by Jovan Haile MD at ENDOSCOPY [facility] [employer] 08/20/2022 HX-202UR.A / / [id number] Lens Intraoc 22.5 - [id number] - [id number] Implanted:Qty: 1 on 10/25/2022 by Hector Pappas MD at [facility] Left: Eye [employer]USCH [employer] LOMB 07/20/2027 [id number] / [id number] / [id number] Lens Intraoc 23.0 - [id number] - [id number] Implanted:Qty: 1 on 11/08/2022 by Hector Pappas MD at OR [facility] Right: Eye BAUSCH [employer] LOMB 08/20/2027 [id number] / [id number] / [id number] documented as of this encounter Advance Directives Documents on File Type Date Recorded 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 Question Answer Comments Discussion of Advance Directives occurred with: Patient Does the patient have a Living Will? No Does the patient have Health Care Power of Kiln Setter? No Code Status History Code Status Date Activated Date Inactivated Comments No Code 10/25/2022 8:20 AM 10/25/2022 2:59 PM This or larisa reflects the patients wishes and were consensually agreed upon. Question Answer Comments Discussion of Advance Directives occurred with: Patient Does the patient have a Living Will? No Does the patient have Health Care Power of Kiln Setter? No Care Teams Registered Nurse Cardiovascular Icu Relationship Specialty Start Date End Date Rajesh Griffith DO [address] [place] [address] PCP - General Family Medicine 06/06/23 documented as of this encounter
--- OUTSIDE RECORDS SUMMARY | 2023-10-19 19:48 | External Medical Summary | Summary of Care ---
Author Name Unknown Organization [facility] Address [address] [address] Phone [phone] Care Team Providers Care [employer] Name Role Phone Rajesh Griffith DO Primary Care Provider + [phone] Reason for Visit * Reason Comments Follow Up Encounter Details Date Type Department Care Team (Latest Contact Info) Description 09/22/2023 11:00 AM EST Office Visit Cardiology, [facility] [address] [place] [address] Juana Levi PA-C [address] [place] [address] Preoperative cardiovascular examination*; Pre-op testing; Ascending aorta dilation (HCC); Dyslipidemia, goal LDL below 70; RBBB Allergies Active Allergy Reactions Criticality Noted Date Comments Amoxicillin 04/09/2002 swelling Diltiazem Hcl Itching,Rash 06/05/2005 Cephalexin 05/09/2023 Yeast infection Citalopram 01/23/2003 Celexa - felt like in "la-la land" - no emotion Hydrocodone 10/02/2012 Meloxicam 02/26/2004 Ibuprofen is OK Oxycodone Hcl 02/23/2010 Made pt.vomit Penicillins Hives 10/07/2008 Quinapril Hcl 07/27/2005 Angioedema - [facility] ER 02/20 Salicylates 02/26/2004 Bextra Ibuprofen is OK Aliskiren Fumarate 05/09/2008 headaches documented as of this encounter (statuses as of 10/11/2023) Medications Medication Sig Dispensed Refills Start Date End Date Status MULTIVITAMIN TABS OR one daily 0 0 Active GLUCOSAMINE CHONDROITIN COMPLX PO CAPS Take by mouth 2 times a day. 0 7 Active ASPIRIN 81 MG PO TABS Take by mouth at bedtime. 0 0 8 Active BENADRYL 25 MG PO CAPS 1 or 2 at night as needed 0 Active COQ10 200 MG PO CAPS one tablet by mouth daily 0 Active FLUTICASONE PROPIONATE 50 MCG/ACT NA SUSPIndications:Acu te serous otitis media 2 sqirts in ea nostril once daily 3 Bottle 3 4 Active Additional Information Patient taking differently:Each Nostril,As needed, Reported on 10/18/2022 RONA 180 MG PO TABSIndications:Chr onic rhinitis,Allergic urticaria Take by mouth daily. 90 Tab 3 4 Active Simethicone 125 MG Oral Capsule Take by mouth as needed. 0 Active Sodium Hyaluronate 60 MG/3ML Intra-articular Prefilled Syringe (Durolane) Inject 1 syringe intra-articular ly into left knee once. 3 mL 0 3 Active hydroCHLOROthiazide 25 MG Oral Tablet (Hydrodiuril) TAKE ONE TABLET BY MOUTH EVERY MORNING 90 Tablet 3 3 01/12/20 24 Active Ezetimibe 10 MG Oral Tablet (Zetia)Indications: Dyslipidemia, goal LDL below 100 TAKE ONE TABLET BY MOUTH EVERY MORNING 90 Tablet 3 3 01/04/20 24 Active traZODone HCl 50 MG Oral Tablet (Desyrel)Indication s:Insomnia, unspecified type TAKE ONE TABLET BY MOUTH EVERY DAY AT BEDTIME 90 Tablet 3 3 12/01/19 24 Active Triamcinolone Acetonide 0.1 % External Lotion (Aristocort)Indicat ions:Dermatitis APPLY TO RASH ON BODY UP TO TWICE DAILY NEEDED 60 mL 2 3 11/10/19 24 Active Carvedilol 6.25 MG Oral Tablet (Coreg)Indications: HTN, goal below 130/80,Dyslipidemia , goal LDL below 100,Preoperative cardiovascular examination TAKE ONE TABLET BY MOUTH EVERY DAY IN THE MORNING AND BEFORE BEDTIME 180 Tablet 3 3 11/03/19 24 Active amLODIPine Besylate 5 MG Oral Tablet (Norvasc)Indication s:HTN, goal below 140/90 TAKE ONE TABLET BY MOUTH EVERY DAY IN THE MORNING AND BEFORE BEDTIME 180 Tablet 3 3 11/03/19 24 Active Pravastatin Sodium 20 MG Oral Tablet (Pravachol)Indicati ons:Dyslipidemia, goal LDL below 100 TAKE ONE TABLET BY MOUTH AT BEDTIME 90 Tablet 3 3 11/02/19 24 Active Losartan Potassium 100 MG Oral Tablet (Cozaar)Indications :HTN, goal below 140/90 TAKE ONE TABLET BY MOUTH EVERY DAY IN THE MORNING 90 Tablet 3 3 12/01/19 24 Active NATURAL SUPPLEMENT Take 1 Capsule by mouth in the morning and 1 Capsule in the evening. Golo. 0 Active Vitamin D (Ergocalciferol) 1.25 MG (67771 UT) Oral Capsule (Drisdol)Indication s:Vitamin D deficiency Take 1 Capsule by mouth Every Month. 3 Capsule 1 3 Active Levothyroxine Sodium 25 MCG Oral Tablet (Levoxyl) TAKE 1 TABLET BY MOUTH DAILY, EXCEPT THURSDAYS AND SUNDAYS TAKE 2 TABLETS A DAY (AT LEAST 30 MINUTES PRIOR TO BREAKFAST AND OTHER MEDS) 120 Tablet 1 3 08/09/20 24 Active Montelukast Sodium 10 MG Oral Tablet (Singulair)Indicati ons:Seasonal allergies,Chronic allergic rhinitis TAKE ONE TABLET BY MOUTH EVERY NIGHT AT BEDTIME 90 Tablet 3 4 09/11/19 25 Active Spironolactone 25 MG Oral Tablet (Aldactone)Indicati ons:HTN, goal below 140/90 TAKE ONE TABLET BY MOUTH EVERY DAY IN THE MORNING 90 Tablet 1 3 09/22/19 24 Discontinued documented as of this encounter (statuses as of 10/11/2023) Active Problems Problem Noted Date Diagnosed Date PVD (peripheral vascular disease) 06/27/2023 Ischial pain [...] POA Alvin 2 POA brother Krishna Stewart [phone] given brochure . Encouraged again HTN, goal [...] hip fracture is 3.8 %. 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 and h/o somewhat [...] yr Vitamin D deficiency 12/17/2009 Overview: Nl 04/10 (off supplement due to calcium issue / renal consequences ) Metabolic syndrome 04/07/2009 GENERAL OSTEOARTHROSIS History of giant cell arteritis Overview: Txd with steroids for 18 months 2001 documented as of this encounter (statuses as of 10/11/2023) Resolved Problems Problem Noted Date Diagnosed Date [...] 08/05/2010 12/25/2018 Overview: Hemoglobin Results: HGB(g/dL) Aggie Dt/Adbongo Resulted Value Status 12/21/18 7:29A 12/21/18 12.1 FINAL 12/14/17 8:33A 12/14/17 12.5 FINAL 02/17/17 10:04A 02/17/17 12.2 FINAL 10/02 iron, b12, folate, epg serum normal. Hemoglobin Results: HGB(g/dL) LocaMap Dt/Adbongo Resulted Value Status 12/19/16 7:14A 12/19/16 12.3 [...] Markers for Patients with Cardiovascular Disease Project #[id number] PI: Jazzmine Carolina MD Please call [phone] with study related questions GENOMICS CARDIO RESEARCH OTHER*[id number] 04/08/2009 09/27/2016 Overview: Renamed Per Clinical Trials Billing Project. Study Titile: Genomic Markers for Patients with Cardiovascular Disease Project #[id number] PI: Jazzmine Carolina MD Please call [phone] with study related questions ABNORMAL stress echo LH 02/2604/07/2009 12/24/2018 Overview: [place] [facility] [place] showed mild luminal irregularites and mild [...] as of this encounter (statuses as of 10/11/2023) Immunizations Name Administration Dates Next Due COVID-19 mRNA, LNP-s, No Pre serve, 2-Dose Series ([employer]) 07/12/2021,10/28/2020,09/30/2020 H1N1 2009 Influenza, IM 12/18/2009 Pneumococcal [...] Sign Reading Time Taken Comments Blood Pressure 144/66 09/22/2023 11:09 AM EST Pulse 72 09/22/2023 11:09 AM EST Temperature - - Respiratory Rate 14 09/22/2023 11:09 AM EST Oxygen Saturation - - Inhaled Oxygen Concentration - - Weight 89.8 kg (198 lb) 09/22/2023 11:09 AM EST Height - - Body Mass Index 33.99 09/07/2023 9:15 AM EST documented in this encounter Progress Notes * Juana Levi PA-C - 09/22/2023 11:07 AM EST Cardiology Follow Up CHIEF COMPLAINT: Follow up, history of hypertension, right bundle branch block, aortic atherosclerosis; mildly dilated ascending aorta, dyslipidemia SUBJECTIVE: Ama Guaman is a 83 year old female who presents today for routine cardiology follow-up as well as preoperative cardiology evaluation and risk assessment prior to undergoing left total knee arthroplasty with Dr. Gasca on 10/19/23. Last clinic evaluation approximately 6 months ago with the undersigned. 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 Denies acute cardiac complaints. Dealing with orthopedic knee issue and limits her mobility. Blood pressure was borderline elevated on arrival but trending down on my repeat. No chest pain, shortness of breath, palpitations, dizziness, syncope or near syncope. No orthopnea,PND, or increased lower extremity edema. No fever, chills, cough, hematochezia, melena, or hemoptysis. Review of Systems: See HPI for pertinent positives. All others negative, other than those noted in HPI. Patient Active Problem List Diagnosis Code Perennial allergic rhinitis J30.89 GENERAL OSTEOARTHROSIS M15.9 History of giant cell arteritis Z87.39 Metabolic syndrome E88.810 Hypertrophic and atrophic condition of skin L91.9, L90.9 Family history of GI malignancy Z80.0 Osteopenia with high risk of fracture M85.80 Vitamin D deficiency E55.9 Family history of premature CAD Z82.49 Peripheral vascular disease (HCC) I73.9 History of multiple pulmonary nodules Z87.898 Dyslipidemia, goal LDL below 70 E78.5 RBBB I45.10 HTN, goal below 140/90 I10 Advance directive discussed with patient Z71.89 History of shingles Z86.19 Family history of malignant neoplasm of ovary Z80.41 Occipital neuralgia of right side M54.81 Abdominal aortic atherosclerosis (HCC) I70.0 Hypothyroidism due to acquired atrophy of thyroid E03.4 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, N18.32 Ceruminosis, left H61.22 Neck pain on left side M54.2 Ascending aorta dilation (HCC) I77.810 Loose bowel movements R19.5 Hypothyroidism E03.9 PVD (peripheral vascular disease) (HCC) I73.9 Subconjunctival hemorrhage of left eye H11.32 Contusion of face S00.83XA Contusion of left knee S80.02XA Ischial pain M25.559 Chronic sinusitis J32.9 Dysfunction of eustachian tube H69.90 Social History Tobacco Use Smoking status: Never Smokeless tobacco: Never Vaping Use Vaping Use: Never used Substance Use Topics Alcohol use: Yes Comment: rare Drug use: No Family History Problem Relation Age of Onset Heart Disorder Mother GA, age 63 Diabetes Mother Diabetes Father Cancer Father Colon Heart Disorder Father CHF, in his early 80s Other (skin cancer) Father Ovarian cancer Sister age 73 Other (labile HBP) Sister Diabetes Brother Stroke Daughter Breast Cancer Cousin (Maternal) Breast Cancer Cousin (Paternal) Glaucoma Other Hypertension Other Other (CVA) Other Past Surgical History: Procedure Laterality Date CATHETERIZE LEFT HEART THRU SKIN 04/08/2009 LEFT HEART CATH, PERCUTANEOUS performed [place] CHRIS REYES [place] [facility] [place] 03/1992 COLONOSCOPY 04/24/2008 Dr. Guardado, repeat in 5 years. Sigmoid tics. COLONOSCOPY W/ BIOPSY (RECTUM) 02/16/2011 diverticulosis, bxs done COLONOSCOPY, DIAGNOSTIC (RECTUM) 06/18/2013 diverticulosis, repeat 5 yrs/COLONOSCOPY FLEXIBLE PROXIMAL DIAGNOSTIC performed by Jovan Haile MD at [facility] COLONOSCOPY, DIAGNOSTIC (RECTUM) N/A 07/19/2018 diverticulosis sigmoid and descending colon/hemorrhoids/serrated adenomatous polyp/recall 3 years/Colonoscopy COLONOSCOPY, DIAGNOSTIC (RECTUM) N/A 07/19/2018 COLONOSCOPY FLEXIBLE PROXIMAL DIAGNOSTIC performed by Jovan Haile MD at [facility] COLONOSCOPY, DIAGNOSTIC (RECTUM) N/A 06/22/2021 diverticulosis sigmoid and descending colon/hemorrhoids/biopsies show serrated adenomatous polyps/recall 1 year/COLONOSCOPY FLEXIBLE PROXIMAL DIAGNOSTIC performed by Jovan Haile MD at [facility] COLONOSCOPY, DIAGNOSTIC (RECTUM) N/A 02/17/2022 multiple small and large mouthed diverticula in sigmoid and descending colon/hemorrhoids/biospies show collagenous colitis/COLONOSCOPY FLEXIBLE PROXIMAL DIAGNOSTIC performed by Jovan Haile MD at [facility] LEFT HEART CATHETERIZATION 04/08/2009 mild luminal irregularites and mild coronary calcification LIGATION/BIOPSY OF TEMPORAL ARTERY 2001 PFT B/A 07/[address] CATHETER IN ARTERY, FIRST 11/09/2011 CATHETER PLACEMENT, ABDOMINAL-LOWER EXTREMITY, FIRST ORDER BRANCH performed [place] WILVER CARBAJAL at [facility] [place]OVE CATARACT, INSERT LENS PROSTH Left 10/25/2022 LEFT EXTRACAPSULAR CATARACT REMOVAL WITH INTRAOCULAR LENS performed by Hector Pappas MD at [facility] REMOVE CATARACT, INSERT LENS PROSTH Right 11/08/2022 RIGHT EXTRACAPSULAR CATARACT REMOVAL WITH INTRAOCULAR LENS performed by Hector Pappas MD at [facility] SHOULDER ARTHROSCOPY SURGERY TOTAL ABD HYSTERECTOMY W/WO REMOVAL OF TUBE(S) early Armond benign. Ovaries remain. NO abn pap Review of patient's allergies indicates: Allergen Reactions Amoxicillin swelling Cardizem [Diltiazem Hcl] Itching and Rash Cephalexin Yeast infection Citalopram Celexa - felt like in "la-la land" - no emotion Hydrocodone Meloxicam Ibuprofen is OK Oxycontin [Oxycodone Hcl] Made pt.vomit Pcn [Penicillins] Hives Quinapril Hcl [Quinapril Hcl] Angioedema - [facility] ER 02/20 Salicylates Bextra Ibuprofen is OK Tekturna [Aliskiren Fumarate] headaches Current Outpatient Medications Medication Sig Dispense Refill MULTIVITAMIN TABS OR one daily 0 GLUCOSAMINE CHONDROITIN COMPLX PO CAPS Take by mouth 2 times a day. 0 ASPIRIN 81 MG PO TABS Take by mouth at bedtime. 0 0 BENADRYL 25 MG PO CAPS 1 or 2 at night as needed COQ10 200 MG PO CAPS one tablet by mouth daily FLUTICASONE PROPIONATE 50 MCG/ACT NA SUSP 2 sqirts in ea nostril once daily (Patient taking differently: Administer into each nostril. As needed) 3 Bottle 3 RONA 180 MG PO TABS Take by mouth daily. 90 Tab 3 Simethicone 125 MG Oral Capsule Take by mouth as needed. Sodium Hyaluronate 60 MG/3ML Intra-articular Prefilled Syringe (Durolane) Inject 1 syringe intra-articularly into left knee once. (Patient not taking: Reported on 06/06/2023) 3 mL 0 hydroCHLOROthiazide 25 MG Oral Tablet (Hydrodiuril) TAKE ONE TABLET BY MOUTH EVERY MORNING 90 Tablet 3 Ezetimibe 10 MG Oral Tablet (Zetia) TAKE ONE TABLET BY MOUTH EVERY MORNING 90 Tablet 3 traZODone HCl 50 MG Oral Tablet (Desyrel) TAKE ONE TABLET BY MOUTH EVERY DAY AT BEDTIME 90 Tablet 3 Triamcinolone Acetonide 0.1 % External Lotion (Aristocort) APPLY TO RASH ON BODY UP TO TWICE DAILY NEEDED 60 mL 2 Carvedilol 6.25 MG Oral Tablet (Coreg) TAKE ONE TABLET BY MOUTH EVERY DAY IN THE MORNING AND BEFOREBEDTIME 180 Tablet 3 amLODIPine Besylate 5 MG Oral Tablet (Norvasc) TAKE ONE TABLET BY MOUTH EVERY DAY IN THE MORNING AND BEFORE BEDTIME 180 Tablet 3 Pravastatin Sodium 20 MG Oral Tablet (Pravachol) TAKE ONE TABLET BY MOUTH AT BEDTIME 90 Tablet 3 Losartan Potassium 100 MG Oral Tablet (Cozaar) TAKE ONE TABLET BY MOUTH EVERY DAY IN THE MORNING 90Tablet 3 NATURAL SUPPLEMENT Take 1 Capsule by mouth in the morning and 1 Capsule in the evening. Golo. Spironolactone 25 MG Oral Tablet (Aldactone) TAKE ONE TABLET BY MOUTH EVERY DAY IN THE MORNING (Patient not taking: Reported on 06/27/2023) 90 Tablet 1 Vitamin D (Ergocalciferol) 1.25 MG (79533 UT) Oral Capsule (Drisdol) Take 1 Capsule by mouth Every Month. 3 Capsule 1 Levothyroxine Sodium 25 MCG Oral Tablet (Levoxyl) TAKE 1 TABLET BY MOUTH DAILY, EXCEPT THURSDAYS AND SUNDAYS TAKE 2 TABLETS A DAY (AT LEAST 30 MINUTES PRIOR TO BREAKFAST AND OTHER MEDS) 120 Tablet 1 Montelukast Sodium 10 MG Oral Tablet (Singulair) TAKE ONE TABLET BY MOUTH EVERY NIGHT AT BEDTIME 90Tablet 3 Abrysvo 120 MCG/0.5ML Intramuscular Solution Reconstituted (RSV Pre-Fusion F A&B Vac Rcmb) inject as directed 1 Each 0 No current facility-administered medications for this visit. OBJECTIVE/PHYSICAL EXAMINATION: BP 144/66 | Pulse 72 | Resp 14 | Wt 89.8 kg (198 lb) | LMP (LMP Unknown) | BMI 33.99 kg/m | BSA 2.01 m Blood pressure my repeat 132/70 General: no acute distress and stated age Eyes: conjunctiva are pink and non-injected, sclera clear Neck: normal jugular venous pulse, no hepatojugular reflux Chest: normal shape and normal respiratory effort Lungs: clear to auscultation and percussion Cardiac Exam: - regular heart sounds, no murmurs, rubs, or gallops Musculoskeletal: no gait disturbance, no weakness Extremities: no edema and no cyanosis Neuro: grossly normal exam Psych: appropriate affect and insight. Data: EKG performed today and reviewed personally: Sinus bradycardia Left axis deviation Right bundle branch block Abnormal ECG When compared with ECG of 01-MAR-2023 09:01, The axis Shifted left EKG performed January 2023 Sinus bradycardia Right bundle branch block Abnormal ECG When compared with ECG of 10-JUN-2019 14:07, Premature supraventricular complexes are no longer Present Echo report reviewed dated December 21, 2021: Interpretation Summary The examination is adequate to evaluate the referral indication. The left ventricular cavity size is normal. The qualitative LV ejection fraction is 60-64% (normal). The left ventricular diastolic function is mildly abnormal (grade I). The right ventricular systolic function is normal as assessed by tricuspid annular plane systolic excursion (TAPSE) (normal >1.7 cm). The left atrium is normal sized (< 35 ml/m^2). The right atrial size is normal. The aortic root is normal sized. The proximal ascending thoracic aorta is mildly enlarged. The aortic valve anatomy is normal. Mild mitral regurgitation is present. Mild tricuspid regurgitation is present. There is no evidence of pulmonary hypertension. Latest Reference Range & Units 06/06/22 08:14 Triglycerides <=174 mg/dL 167 Cholesterol <200 mg/dL 145 Non-HDL Cholesterol <=159 mg/dL 102 HDL Cholesterol >49 mg/dL 43 (L) LDL Cholesterol (Direct Measure) <=129 mg/dL 70 (L): Data is abnormally low ASSESSMENT: 82 year old female ICD-10-CM 1. Preoperative cardiovascular examination Z01.810 2. Pre-op testing Z01.818 3. Ascending aorta dilation (HCC) I77.810 4. Dyslipidemia, goal LDL below 70 E78.5 5. RBBB I45.10 PLAN: Patient here for preop left total knee arthroplasty. No anginal complaints. BP has been well controlled Appears euvolemic. EKG is without acute changes. Will proceed with resting echo as she is due this spring for 2 year interval to monitor mildly dilated ascending aorta. She is in agreement with this plan. The patient is to continue all current medications as listed above. No changes were made at today'svisit. Patient is being evaluated in the cardiology office for ongoing care/risk management for HTN; dyslipidemia; ascending aortic dilatation. I spent a total of 40 minutes on the date of service in preparation, delivery, and documentation ofthe care provided to Ama Guaman excluding any time spent in the performance of separately billed services. The patient agrees to the above plan and will call with additional questions or concerns. ER with all emergencies advised. Check-out note: Move up echo before - cancel may appt - ask in the back if no openings 6-[address] Pizarro or Gurmeet Levi PA-C Department of Cardiology This chart was completed in part utilizing [employer] Voice Recognition Software. Grammatical errors, random word insertions, prounoun errors, and incomplete sentences are an occasional consequence of this system due to software limitations, ambient noise, and hardware issues. Any formal questions or concerns about the content, text, or information contained within the body of this dictation should be directly addressed to the provider for clarification. documented in this encounter Procedure Notes * Wilver Lyon DO - 09/22/2023 11:18 AM ESTAssociated Order(s): EKG REASON FOR STUDY: routine CONCLUSIONS: Sinus bradycardia Left axis deviation Right bundle branch block Abnormal ECG When compared with ECG of 01-MAR-2023 09:01, The axis Shifted left Ventricular Rate: 54 Atrial Rate: 54 [place] Interval: 184 QRS Duration: 150 QT/QTc: 466/441 ms P-R-T Independence: 55 : -41 : 35 degrees documented in this encounter Nursing Notes * Chapis Kim LPN - 09/22/2023 11:10 AM EST Examination Room: 1 Name: Ama Guaman Date of : 1940 Reason for Visit: Pre op L TKA 10/19/23 Problems/Concerns: Denies complaint Interim Hosp(s): Jun 2023 s/p fall, d/t L knee Chest Pain/SOB: denies MyChart Discussed: ALREADY ACTIVE Patient was instructed to not get up on the exam table until directed and assisted by their provider; patient is to remain seated in the chair/ wheelchair/ exam table for fall prevention and safety reasons. Patient is aware staff will assist stepping down off exam table with personnel. documented in this encounter Plan of Treatment Upcoming Encounters Date Type Department Care Team (Latest Contact Info) Description 10/11/2023 3:00 PM EST Office Visit [place] [address] Dylon Jacob [address] [place] [address] [facility] Commercial Lines Manager [facility] [address] [place] [address] 10/13/2023 12:30 PM EST Office Visit [facility] Dylon Love [address] [place] [address] [facility] Commercial Lines Manager [facility] [address] [place] [address] 10/16/2023 9:00 AM EST Office Visit [place] [address] Dylon [address] [place] [address] Rajesh Griffith DO [address] [place] [address] 10/16/2023 2:00 PM EST Office Visit Family Practice 65 [facility] [address] [place] [address] [facility] Commercial Lines Manager [facility] [address] [place] [address] 12/28/2023 9:00 AM EDT Nutrition Services Nutrition Services 65 [facility] Taylor [address] [place] [address] Lyndsey Alegria, RDN 30 [facility] [address] [place] [address] 01/08/2024 11:00 AM EDT Cardiac Studies Cardiac Studies, [facility] [address] [place] [address] 01/31/2024 11:40 AM EDT Office Visit Otolaryngology [facility] [address] [place] [address] Ana Martino PA-C [address] [place] [address] 02/28/2024 8:00 AM EDT Hospital Encounter ENDO [facility], Endoscopy [address] [phone] Jovan Haile MD [address] [place] [address] 02/28/2024 8:00 AM EDT - 02/28/2024 8:30 AM EDT Surgery ENDO [facility], Endoscopy [address] [phone] Jovan Haile MD [address] [place] [address] COLONOSCOPY FLEXIBLE PROXIMAL DIAGNOSTIC 05/14/2024 10:00 AM EDT Nurse Only Ancillary, Dylon [address] [place] [phone] Taylor, Nurse [facility] [address] [place] [address] 07/09/2024 3:10 PM EST Office Visit Dermatology, Carmelo Dubose [address] [place] [address] Denice Rangel PA-C [address] [place] [phone] Scheduled Procedures Name Priority Associated Diagnoses Date/Ti [...] Screening 06/06/2024 06/06/2023 CKD PHOS USE SMARTSET 85768 06/09/202405/22, 06/06/2022, 08/23/2021, Additional history exists TSH 06/09/2024 06/09/2023, 05/21, 12/23/2021, Additional history exists Albumin/Creatinine Ratio 06/23/2024 023, 10/18/2022, 06/15/2017 CKD HGB USE SMARTSET 06437 09/29/202409/29, 11/10/2022, 11/10/2022, Additional history exists DXA [...] this encounter Medical Devices Implanted Type Area Product Owner Device Identifier Shelf Expiration Date Model / Serial / Lot Clip Quick 2.8mm 230cm - [id number] Implanted:Qty: 1 on 02/17/2022 by Jovan Haile MD at [facility] [employer] [facility] 08/20/2022 [id number] / [id number] Lens Intraoc 22.5 - [id number] - [id number] Implanted:Qty: 1 on 10/25/2022 by Hector Pappas MD at [facility] Left: Eye [employer] 07/20/2027 [id number] / [id number] / [id number] Lens Intraoc 23.0 - [id number] - [id number] Implanted:Qty: 1 on 11/08/2022 by Hector Pappas MD at [facility] Right: Eye [employer] 08/20/2027 [id number] / [id number] / [id number] documented as of this encounter Procedures Procedure Name Priority Date/Time Associated Diagnosis Comments [place] ECG ROUTINE ECG W/LEAST 12 LDS W/I&R Routine 09/22/2023 11:18 AM EST Pre-op testing documented in this encounter Results * EKG (09/22/2023 11:18 AM EST) 09/22/2023 11:1 8 AM EST Narrative Procedure Note Wilver Lyon DO - 09/22/2023 11:18 AM EST REASON FOR STUDY: routine CONCLUSIONS: Sinus bradycardia Left axis deviation Right bundle branch block Abnormal ECG When compared with ECG of 01-MAR-2023 09:01, The axis Shifted left Ventricular Rate: 54 Atrial Rate: 54 [place] Interval: 184 QRS Duration: 150 QT/QTc: 466/441 ms P-R-T Independence: 55 : -41 : 35 degrees Juana Levi PA-C EKG [facility] documented in this encounter Visit Diagnoses Diagnosis Preoperative cardiovascular examination- Primary Pre-operative cardiovascular examination Pre-op testing Preoperative examination, unspecified Ascending aorta dilation (HCC) Thoracic aortic ectasia Dyslipidemia, goal LDL below 70 Other and unspecified hyperlipidemia RBBB Right bundle branch block Polyp of colon, unspecified part of colon, unspecified type Family history of colon cancer in father documented in this encounter Advance Directives Documents on File Type Date 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 Question Answer Comments Discussion of Advance Directives occurred with: Patient Does the patient have a Living Will? No Does the patient have Health Care Power of Food Safety Manager? No Code Status History Code Status Date Activated Date Inactivated Comments No Code 10/25/2022 8:20 AM 10/25/2022 2:59 PM This or larisa reflects the patients wishes and were consensually agreed upon. Question Answer Comments Discussion of Advance Directives occurred with: Patient Does the patient have a Living Will? No Does the patient have Health Care Power of Food Safety Manager? No Care Teams Justice Of The Peace Relationship Specialty Start Date End Date Gladis, Rajesh, DO [address] [place] [phone] PCP - General Family Medicine 06/06/23 documented as of this encounter
--- OUTSIDE RECORDS SUMMARY | 2023-10-19 19:48 | External Medical Summary | Summary of Care ---
Author Name Unknown Organization [facility] Address [address] [place] [facility] [place] [address] Phone [phone] Care Team Providers Care Fuel Cell Engineer Name Role Phone Rajesh Griffith DO Primary Care Provider [phone] Encounter Details Date Type Department Care Team (Late st Contact Info) Description 10/16/2023 Documentation HEALTH & WELLNESS Sergey Singh, Health Bonded Strand Operator Allergies Active Allergy Reactions Criticality Noted Date Comments Amoxicillin 04/09/2002 swelling Diltiazem Hcl Itching,Rash 06/05/2005 Cephalexin 05/09/2023 Yeast infection Citalopram 01/23/2003 Celexa - felt like in "la[place]la land" - no emotion Hydrocodone 10/02/2012 Meloxicam 02/26/2004 Ibuprofen is OK Oxycodone Hcl 02/23/2010 Made pt.vomit Penicillins Hives 10/07/2008 Quinapril Hcl 07/27/2005 Angioedema - [place] [facility] 02/20 Salicylates 02/26/2004 Bextra Ibuprofen is OK Aliskiren Fumarate 05/09/2008 headaches documented as of this encounter (statuses as of 10/16/2023) Medications Medication Sig Dispensed Refills Start Date End Date Status MULTIVITAMIN TABS OR one daily 0 05/30/2000 Acti ve FLUTICASONE PROPIONATE 50 MCG/ACT NA SUSPIndications:Acut e [...] 0 Active Vitamin D (Ergocalciferol) 1.25 MG (05301 UT) Oral Capsule (Drisdol)Indications :Vitamin D deficiency [...] POA Alvin 2 POA brother Krishna [place] [phone] [phone] given brochure . Encouraged again HTN, goal [...] hip fracture is 3.8 %. 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 Hemoglobin Results: HGB(g/dL) [facility] Dt/Tm Resulted Value Status 12/19/16 7:14A 12/19/16 [...] Markers for Patients with Cardiovascular Disease Project #[id number] PI: Jazzmine Carolina MD Please call [phone] with study related questions GENOMICS CARDIO RESEARCH OTHER*[id number] 04/08/2009 09/27/2016 Overview: Renamed Per Clinical Trials Billing Project. Study Titile: Genomic Markers for Patients with Cardiovascular Disease Project #[id number] PI: Jazzmine Carolina MD Please call [phone] with study related questions ABNORMAL stress echo LH 02/2604/07/2009 12/24/2018 Overview: Cath at [facility] [place] [facility] 03/29 showed mild luminal irregularites and [...] mRNA, LNP-s, No Pre serve, 2-Dose Series ([employer]) 07/12/2021,10/28/2020,09/30/2020 H1N1 2009 Influenza, IM 12/18/2009 Pneumococcal [...] of this encounter Progress Notes * Sergey Singh, Health Bonded Strand Operator - 10/16/2023 3:56 PM EST Images from the original note were not included. SESSION TYPE: One-on-one exercise session: Exercise Subtype or Modality: Multi Exercise Weight: Blood pressure: Planned Exercise Routine: Whole body Frequency: 1x week Duration: 30-45 minutes documented in this encounter Plan of Treatment Upcoming Encounters Date Type Department Care Team (Latest Contact Info) Description 12/28/2023 9:00 AM EDT Nutrition Services Nutrition Services [address] [place] [address] Lyndsey Alegria RDN 30 [facility] [address] [place] [address] 01/19/2024 9:40 AM EDT Office Visit Family Practice [address] [place], [place] [address]Dylon [address] [place] [address] Rajesh Griffith DO [address] [place] [address] 01/31/2024 11:40 AM EDT Office Visit Otolaryngology [facility] [address] [place] [address] Ana Martino PA-C [address] [place] [address] 02/28/2024 8:00 AM EDT Hospital Encounter ENDO [facility], Endoscopy [address] [place] [phone] Jovan Haile MD [address] [place] [address] 02/28/2024 8:00 AM EDT - 02/28/2024 8:30 AM EDT Surgery ENDO [facility], Endoscopy [address] [place] [phone] Jovan Haile MD [address] [place] [address] COLONOSCOPY FLEXIBLE PROXIMAL DIAGNOSTIC 05/14/2024 10:00 AM EDT Nurse Only Ancillary, Dylon [address] [place] [address] Dylon, Nurse Annual Wellness [address] [place] [address] 07/09/2024 3:10 PM EST Office Visit Dermatology, Rosemary Weaver Carmelo [address] [place] [address] Denice Rangel PA-C [address] [place] [address] Scheduled Procedures Name Priority Associated Diagnoses Date/Ti [...] Screening 06/06/2024 06/06/2023 CKD PHOS USE SMARTSET 40044 06/09/202405/22, 06/06/2022, 08/23/2021, Additional history exists TSH 06/09/2024 06/09/2023, 05/21, 12/23/2021, Additional history exists Albumin/Creatinine Ratio 06/23/2024 023, 10/18/2022, 06/15/2017 CKD HGB USE SMARTSET 08390 09/29/202409/29, 11/10/2022, 11/10/2022, Additional history exists DXA [...] this encounter Medical Devices Implanted Type Area Art Teacher Device Identifier Shelf Expiration Date Model / Serial / Lot Clip Quick 2.8mm 230cm - [id number] Implanted:Qty: 1 on 02/17/2022 by Jovan Haile MD at ENDOSCOPY [facility] [employer] 08/20/2022 [id number] / / [id number] Lens Intraoc 22.5 - [id number] - [id number] Implanted:Qty: 1 on 10/25/2022 by Hector Pappas MD at OR [facility] Left: Eye [employer] 07/20/2027 [id number] / [id number] / [id number] Lens Intraoc 23.0 - [id number] - [id number] Implanted:Qty: 1 on 11/08/2022 by Hector Pappas MD at OR [facility] Right: Eye [employer]OM[employer] 08/20/2027 [id number] / [id number] / [id number] documented as of this encounter Advance Directives Documents on File Type Date Recorded Patient Clerk Guide Expl anation Power of Perishable Fruit Inspector 03/07/2021 POWER OF A TTORNEY Latest Code Status on File Code Status Date Activated Date Inactivated Comments No Code 11/08/2022 7:49 AM 11/08/2022 3:01 PM This order reflects the patients wishes and were consensually agreed upon. Question Answer Comments Discussion of Advance Directives occurred with: Patient Does the patient have a Living Will? No Does the patient have Health Care Power of Perishable Fruit Inspector? No Code Status History Code Status Date Activated Date Inactivated Comments No Code 10/25/2022 8:20 AM 10/25/2022 2:59 PM This or larisa reflects the patients wishes and were consensually agreed upon. Question Answer Comments Discussion of Advance Directives occurred with: Patient Does the patient have a Living Will? No Does the patient have Health Care Power of Perishable Fruit Inspector? No Care Teams Fuel Cell Engineer Relationship Specialty Start Date End Date Rajesh Griffith DO [address] [place] [address] PCP - General Family Medicine 06/06/23 documented as of this encounter
--- OUTSIDE RECORDS SUMMARY | 2023-10-19 19:48 | External Medical Summary | Summary of Care ---
Author Name Unknown Organization [facility] Address [address] [place] [address] Phone [phone] Care Team Providers Care Balloon Pilot Name Role Phone Rajesh Griffith DO Primary Care Provider [phone] Encounter Details Date Type Department Care Team (Late st Contact Info) Description 10/02/2023 Orders Only Family Practice [address] [place] [address] Rajesh Griffith DO [address] [place] [address] Allergies Active Allergy Reactions Criticality Noted Date Comments Amoxicillin 04/09/2002 swelling Diltiazem Hcl Itching,Rash 06/05/2005 Cephalexin 05/09/2023 Yeast infection Citalopram 01/23/2003 Celexa - felt like in "la-la land" - no emotion Hydrocodone 10/02/2012 Meloxicam 02/26/2004 Ibuprofen is OK Oxycodone Hcl 02/23/2010 Made pt.vomit Penicillins Hives 10/07/2008 Quinapril Hcl 07/27/2005 Angioedema - [place] [facility] 02/20 Salicylates 02/26/2004 Bextra Ibuprofen is OK Aliskiren Fumarate 05/09/2008 headaches documented as of this encounter (statuses as of 10/02/2023) Medications Medication Sig Dispensed Refills Start Date [...] Reported on 10/18/2022 RONA 180 MG PO TABSIndications:Fabricator Special Items reena rhinitis,Allergic urticaria Take by mouth daily. 90 Tab 3 07/31/2014 Active Simethicone 125 MG Oral Capsule Take by mouth as needed. 0 Active Sodium Hyaluronate 60 MG/3ML Intra-articular Prefilled Syringe ([email or web address]) Inject 1 syringe intra-articularly into left knee [...] 0 Active Vitamin D (Ergocalciferol) 1.25 MG (64195 UT) Oral Capsule (Drisdol)Indications :Vitamin D deficiency [...] as of this encounter (statuses as of 10/02/2023) Active Problems Problem Noted Date Diagnosed Date [...] POA Alvin 2 POA brother Krishna [place] [phone] given brochure . Encouraged again HTN, goal [...] hip fracture is 3.8 %. 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 Flonase prn GENERAL OSTEOARTHROSIS History of giant cell arteritis Overview: Txd with steroids for 18 months 2001 documented as of this encounter (statuses as of 10/02/2023) Resolved Problems Problem Noted Date Diagnosed Date [...] 08/05/2010 12/25/2018 Overview: Hemoglobin Results: HGB(g/dL) Aggie Dt/Walk-in Resulted Value Status 12/21/18 7:29A 12/21/18 12.1 [...] Markers for Patients with Cardiovascular Disease Project #[id number] PI: Jazzmine Carolina MD Please call [phone] with study related questions GENOMICS CARDIO RESEARCH OTHER*[id number] 04/08/2009 09/27/2016 Overview: Renamed Per Clinical Trials Billing Project. Study Titile: Genomic Markers for Patients with Cardiovascular Disease Project #[id number] PI: Jazzmine Carolina MD Please call [phone] with study related questions ABNORMAL stress echo LH 02/2604/07/2009 12/24/2018 Overview: [place] [facility] [place] showed mild luminal irregularites and mild [...] as of this encounter (statuses as of 10/02/2023) Immunizations Name Administration Dates Next Due COVID-19 mRNA, LNP-s, No Pre serve, 2-Dose Series ([employer] - [employer]) 07/12/2021,10/28/2020,09/30/2020 H1N1 2009 Influenza, IM 12/18/2009 Pneumococcal [...] on file documented as of this encounter Plan of Treatment Upcoming Encounters Date Type Department Care Team (Latest Contact Info) Description 10/02/2023 1:15 PM EST Office Visit Family Practice [address] [place] [phone] Dylon, Health Red Lead Burner Fam Prac [address] [place] [phone] 10/11/2023 8:00 AM EST Cardiac Studies Cardiac Studies, [facility] [address] [facility] [place] [address] 10/13/2023 9:00 AM EST Nutrition Services Nutrition Services 65 [facility] [address] [place] [address] Lyndsey Alegria, RDN 30 [facility] [address] [place] [address] 10/16/2023 9:00 AM EST Office Visit Family Practice 65 [facility] [address] [place] [address] Rajesh Griffith DO [address] [place] [address] 01/08/2024 11:00 AM EDT Cardiac Studies Cardiac Studies, [facility] [address] [place] [address] 01/31/2024 11:40 AM EDT Office Visit Otolaryngology [facility] [address] [place] [address] Ana Martino PA-C [address] [place] [address] 02/28/2024 8:00 AM EDT Hospital Encounter ENDO [facility], Endoscopy [address] [phone] Jovan Haile MD [address] [place] [address] 02/28/2024 8:00 AM EDT - 02/28/2024 8:30 AM EDT Surgery ENDO [facility], Endoscopy [address] [phone] Jovan Haile MD [address] [place] [address] COLONOSCOPY FLEXIBLE PROXIMAL DIAGNOSTIC 05/14/2024 10:00 AM EDT Nurse Only Ancillary, Dylon [address] [place] [phone] [place], Nurse Annual Wellness [address] [place] [address] 07/09/2024 3:10 PM EST Office Visit Dermatology, Carmelo Dubose [address] [place] [address] Denice Rangel PA-C [address] [place] [phone] Scheduled Procedures Name Priority Associated Diagnoses Date/Ti me COLONOSCOPY FLEXIBLE PROXIMAL DIAGNOSTIC Polyp of colon, unspecified part of colon, unspecified type Family history of colon cancer in father 02/28/2024 8:00 AM EDT Health Maintenance Due Date Last Done Comments COLONOSCOPY-ANNUAL AGES 18-100 02/17/2023 02/17/2022, 02/17/2022, 06/22/2021, Additional history exists COVID-19 Vaccine ( season) 2023 07/12/2021, 10/28/2020, 09/30/2020 CKD HGB USE SMARTSET 94139 11/11/202309/29, 11/10/2022, 11/10/2022, Additional history exists GFR 12/19/2023 09/29/2023, 05/23, 06/09/2023, Additional history exists Depression Screening 06/06/2024 06/06/2023 CKD PHOS USE SMARTSET 75679 06/09/202405/22, 06/06/2022, 08/23/2021, Additional history exists TSH 06/09/2024 06/09/2023, 05/21, 12/23/2021, Additional history exists Albumin/Creatinine Ratio 06/23/2024 023, 10/18/2022, 06/15/2017 DXA Scan 01/25/2026 01/25/2021, 04/22, 04/24/2012, Additional [...] this encounter Medical Devices Implanted Type Area Property Investor Device Identifier Shelf Expiration Date Model / Serial / Lot Clip Quick 2.8mm 230cm - [id number] Implanted:Qty: 1 on 02/17/2022 by Jovan Haile MD at ENDOSCOPY [facility] [employer] [facility] 08/20/2022 HX-202UR.A / / [id number] Lens Intraoc 22.5 - [id number] - [id number] Implanted:Qty: 1 on 10/25/2022 by Hetcor Pappas MD at OR [facility] Left: Eye [employer]OM[employer] 07/20/2027 [id number] / [id number] / [id number] Lens Intraoc 23.0 - [id number] - [id number] Implanted:Qty: 1 on 11/08/2022 by Hector Pappas MD at [facility] Right: Eye [employer]OMB 08/20/2027 [id number] / [id number] / [id number] documented as of this encounter Procedures Procedure Name Priority Date/Time Associated Diagnosis Comments XR CHEST 2 VIEWS Routine 09/29/2023 documented in this encounter Results * XR CHEST 2 VIEWS (09/29/2023) Anatomical Region Laterality Modality Chest Other 09/29/2023 Reji Gasca MD RADIOLOGY (RAD GEN ERAL) documented in this encounter Advance Directives Documents on File Type Date Recorded Patient Knifeman Expl anation Power of Telecommunications Repairer 03/07/2021 POWER OF A TTORNEY Latest Code Status on File Code Status Date Activated Date Inactivated Comments No Code 11/08/2022 7:49 AM 11/08/2022 3:01 PM This order reflects the patients wishes and were consensually agreed upon. Question Answer Comments Discussion of Advance Directives occurred with: Patient Does the patient have a Living Will? No Does the patient have Health Care Power of Telecommunications Repairer? No Code Status History Code Status Date Activated Date Inactivated Comments No Code 10/25/2022 8:20 AM 10/25/2022 2:59 PM This or larisa reflects the patients wishes and were consensually agreed upon. Question Answer Comments Discussion of Advance Directives occurred with: Patient Does the patient have a Living Will? No Does the patient have Health Care Power of Telecommunications Repairer? No Care Teams Balloon Pilot Relationship Specialty Start Date End Date Rajesh Griffith DO [address] [place] [address] PCP - General Family Medicine 06/06/23 documented as of this encounter
--- OUTSIDE RECORDS SUMMARY | 2023-10-19 19:48 | External Medical Summary | Summary of Care ---
Author Name Unknown Organization [facility] Address [address] [facility] [place] [address] Phone [phone] Care Team Providers Care Wheel And Axle Inspector Name Role Phone Bruce Griffithinic Primary Care Provider [phone] Encounter Details Date Type Department Care Team (Late st Contact Info) Description 10/09/2023 Documentation HEALTH & WELLNESS Sergey Singh, Health Vp Software Support Allergies Active Allergy Reactions Criticality Noted Date Comments Amoxicillin 04/09/2002 swelling Diltiazem Hcl Itching,Rash 06/05/2005 Cephalexin 05/09/2023 Yeast infection Citalopram 01/23/2003 Celexa - felt like in "[place]la [place]" - no emotion Hydrocodone 10/02/2012 Meloxicam 02/26/2004 Ibuprofen is OK Oxycodone Hcl 02/23/2010 Made pt.vomit Penicillins Hives 10/07/2008 Quinapril Hcl 07/27/2005 Angioedema - [facility] 02/20 Salicylates 02/26/2004 Bextra Ibuprofen is OK Aliskiren Fumarate 05/09/2008 headaches documented as of this encounter (statuses as of 10/10/2023) Medications Medication Sig Dispensed Refills Start Date [...] Reported on 10/18/2022 RONA 180 MG PO TABSIndications:Electroencephalogram Technologist reena rhinitis,Allergic urticaria Take by mouth daily. [...] 0 Active Vitamin D (Ergocalciferol) 1.25 MG (57547 UT) Oral Capsule (Drisdol)Indications :Vitamin D deficiency [...] as of this encounter (statuses as of 10/10/2023) Active Problems Problem Noted Date Diagnosed Date [...] POA Alvin 2 POA brother Krishna Stewart [phone] given brochure . Encouraged again HTN, goal [...] hip fracture is 3.8 %. 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 Hemoglobin Results: HGB(g/dL) Aggie Dt/ByteActive Resulted Value Status 12/19/16 7:14A 12/19/16 12.3 [...] Markers for Patients with Cardiovascular Disease Project #[id number] PI: Jazzmine Carolina MD Please call [phone] with study related questions GENOMICS CARDIO RESEARCH OTHER*[id number] 04/08/2009 09/27/2016 Overview: Renamed Per Clinical Trials Billing Project. Study Titile: Genomic Markers for Patients with Cardiovascular Disease Project #[id number] PI: Jazzmine Carolina MD Please call [phone] with study related questions ABNORMAL stress echo LH 02/2604/07/2009 12/24/2018 Overview: Cath at [facility] [place] showed mild luminal irregularites and mild [...] as of this encounter (statuses as of 10/10/2023) Immunizations Name Administration Dates Next Due COVID-19 mRNA, LNP-s, No Pre serve, 2-Dose Series ([employer]) 07/12/2021,10/28/2020,09/30/2020 H1N1 2009 Influenza, IM 12/18/2009 Pneumococcal [...] encounter Progress Notes * Sergey Singh, Health Vp Software Support - 10/10/2023 8:37 AM EST Images from the original note were not included. SESSION TYPE: One-on-one exercise session: Exercise Subtype or Modality: Multi Exercise Weight: Blood pressure: Planned Exercise Routine: Knee replacement prep Frequency: 2x week Duration: 30-45 minutes documented in this encounter Plan of Treatment Upcoming Encounters Date Type Department Care Team (Latest Contact Info) Description 10/11/2023 8:00 AM EST Cardiac Studies Cardiac Studies, [address] [place] [address] 10/11/2023 3:00 PM EST Office Visit Family Practice [address] [address] [place] [address] [place], Health Vp Software Support Fam Prac [address] [place] [address] 10/13/2023 9:00 AM EST Nutrition Services Nutrition Services [address] [place] [address] Lyndsey Alegria, RDN [address] [facility] [address] [place] [address] 10/13/2023 12:30 PM EST Office Visit Family Practice [address] [place] [address] [place], Health Vp Software Support Fam Prac [address] [place] [address] 10/16/2023 9:00 AM EST Office Visit Family Practice [address] [place] [address] Rajesh Griffith DO [address] [place] [address] 10/16/2023 2:00 PM EST Office Visit Family Practice [address] [place] [address] [place], Health Vp Software Support Fam Prac [address] [place] [address] 01/08/2024 11:00 AM EDT Cardiac Studies Cardiac Studies, [facility] [address] [facility] [place] [address] 01/31/2024 11:40 AM EDT Office Visit Otolaryngology [facility] [address] [facility] [place] [address] Ana Martino PA-C [address] [place], [place] [address] 02/28/2024 8:00 AM EDT Hospital Encounter ENDO GE, Endoscopy [address] [place] [phone] Jovan Haile MD [address] [place] [address] 02/28/2024 8:00 AM EDT - 02/28/2024 8:30 AM EDT Surgery ENDO GE, Endoscopy [address] [place] [phone] Jovan Haile MD [address] [place] [address] COLONOSCOPY FLEXIBLE PROXIMAL DIAGNOSTIC 05/14/2024 10:00 AM EDT Nurse Only Ancillary, [place] [address] [place] [address] [place], Nurse Annual Wellness [address] [place] [address] 07/09/2024 3:10 PM EST Office Visit Dermatology, Carmelo Dubose [address] [place] [address] Denice Rangel PA-C [address] [place] [address] Scheduled Procedures Name Priority Associated Diagnoses Date/Ti [...] Screening 06/06/2024 06/06/2023 CKD PHOS USE SMARTSET 89039 06/09/202405/22, 06/06/2022, 08/23/2021, Additional history exists TSH 06/09/2024 06/09/2023, 05/21, 12/23/2021, Additional history exists Albumin/Creatinine Ratio 06/23/2024 023, 10/18/2022, 06/15/2017 CKD HGB USE SMARTSET 57832 09/29/202409/29, 11/10/2022, 11/10/2022, Additional history exists DXA [...] this encounter Medical Devices Implanted Type Area Bottle Assembler Device Identifier Shelf Expiration Date Model / Serial / Lot Clip Quick 2.8mm 230cm - [id number] Implanted:Qty: 1 on 02/17/2022 by Jovan Haile MD at ENDOSCOPY [facility] [employer] 08/20/2022 [id number]-202UR.A / / [id number] Lens Intraoc 22.5 - [id number] - [id number] Implanted:Qty: 1 on 10/25/2022 by Hector Pappas MD at OR [facility] Left: Eye [employer] 07/20/2027 [id number] / [id number] / [id number] Lens Intraoc 23.0 - [id number] - [id number] Implanted:Qty: 1 on 11/08/2022 by Hector Pappas MD at OR [facility] Right: Eye [employer] 08/20/2027 [id number] / [id number] / [id number] documented as of this encounter Advance Directives Documents on File Type Date Recorded Patient Toppiece Cutter Expl anation Power of Professor Of Exercise Science 03/07/2021 POWER OF A TTORNEY Latest Code Status on File Code Status Date Activated Date Inactivated Comments No Code 11/08/2022 7:49 AM 11/08/2022 3:01 PM This order reflects the patients wishes and were consensually agreed upon. Question Answer Comments Discussion of Advance Directives occurred with: Patient Does the patient have a Living Will? No Does the patient have Health Care Power of Professor Of Exercise Science? No Code Status History Code Status Date Activated Date Inactivated Comments No Code 10/25/2022 8:20 AM 10/25/2022 2:59 PM This or larisa reflects the patients wishes and were consensually agreed upon. Question Answer Comments Discussion of Advance Directives occurred with: Patient Does the patient have a Living Will? No Does the patient have Health Care Power of Professor Of Exercise Science? No Care Teams Wheel And Axle Inspector Relationship Specialty Start Date End Date Rajesh Griffith DO [address] [place] [id number] PCP - General Family Medicine 06/06/23 documented as of this encounter
--- OUTSIDE RECORDS SUMMARY | 2023-10-19 19:48 | External Medical Summary | Summary of Care ---
Author Name Unknown Organization [facility] Address [address] [place] [place] [place] [address] Phone [phone] Care Team Providers Care Manager Photo Name Role Phone Rajesh Griffith DO Primary Care Provider [phone] Encounter Details Date Type Department Care Team (Late st Contact Info) Description 10/11/2023 Documentation HEALTH & WELLNESS Sergey Singh, Health Open Hearth Furnace Laborer Allergies Active Allergy Reactions Criticality Noted Date Comments Amoxicillin 04/09/2002 swelling Diltiazem Hcl Itching,Rash 06/05/2005 Cephalexin 05/09/2023 Yeast infection Citalopram 01/23/2003 Celexa - felt like in "la-la land" - no emotion Hydrocodone 10/02/2012 Meloxicam 02/26/2004 Ibuprofen is OK Oxycodone Hcl 02/23/2010 Made pt.vomit Penicillins Hives 10/07/2008 Quinapril Hcl 07/27/2005 Angioedema - [place] [facility] 02/20 Salicylates 02/26/2004 Bextra Ibuprofen is OK Aliskiren Fumarate 05/09/2008 headaches documented as of this encounter (statuses as of 10/12/2023) Medications Medication Sig Dispensed Refills Start Date [...] Reported on 10/18/2022 RONA 180 MG PO TABSIndications:Manager Presentation reena rhinitis,Allergic urticaria Take by mouth daily. [...] 0 Active Vitamin D (Ergocalciferol) 1.25 MG (28336 UT) Oral Capsule (Drisdol)Indications :Vitamin D deficiency [...] as of this encounter (statuses as of 10/12/2023) Active Problems Problem Noted Date Diagnosed Date [...] POA Alvin 2 POA brother Krishna Stewart [phone] given brochure . Encouraged again HTN, goal [...] hip fracture is 3.8 %. 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 Study Titile: Genomic Markers for Patients with Cardiovascular Disease Project #[id number] PI: Jazzmine Carolina MD Please call [phone] with study related questions ABNORMAL stress echo LH 02/2604/07/2009 12/24/2018 Overview: Cath at [facility] 03/29 showed mild luminal irregularites and [...] as of this encounter (statuses as of 10/12/2023) Immunizations Name Administration Dates Next Due COVID-19 mRNA, LNP-s, No Pre serve, 2-Dose Series ([facility] I[facility]) 07/12/2021,10/28/2020,09/30/2020 H1N1 2009 Influenza, IM 12/18/2009 Pneumococcal [...] encounter Progress Notes * Sergey Singh, Health Open Hearth Furnace Laborer - 10/12/2023 8:21 AM EST Images from the original note were not included. SESSION TYPE: One-on-one exercise session: Exercise Subtype or Modality: Multi Exercise Weight: Blood pressure: Planned Exercise Routine: Knee replacement prep Frequency: 2x week Duration: 30-45 minutes documented in this encounter Plan of Treatment Upcoming Encounters Date Type Department Care Team (Latest Contact Info) Description 10/13/2023 9:15 AM EST Cardiac Studies Cardiac Studies, [facility] [address] [place] [address] 10/13/2023 12:30 PM EST Office Visit Family Practice [address] [facility] [place] [address] [place] [address] [place], Health Open Hearth Furnace Laborer Fam Prac [address] [place] [address] 10/16/2023 9:00 AM EST Office Visit Family [facility] [address] [facility] [place] [address] [place] [address] Rajesh Griffith DO [address] [place] [address] 10/16/2023 2:00 PM EST Office Visit Family [facility] [address] [address] [place] [address] [place], Health Open Hearth Furnace Laborer Fam Prac [address] [place] [address] 12/28/2023 9:00 AM EDT Nutrition Services Nutrition Services Nidia [place] [address] [place] [phone] Lyndsey Alegria, HERIN [address] [facility] [address] [place] [address] 01/31/2024 11:40 AM EDT Office Visit Otolaryngology [facility] [address] [place] [address] Ana Martino PA-C [address] [place] [address] 02/28/2024 8:00 AM EDT Hospital Encounter ENDO [facility] [phone] Jovan Haile MD [address] [place] [address] 02/28/2024 8:00 AM EDT - 02/28/2024 8:30 AM EDT Surgery ENDO GE, Endoscopy Suite [facility] [address] [place] [phone] Jovan Haile MD [address] [place] [address] COLONOSCOPY FLEXIBLE PROXIMAL DIAGNOSTIC 05/14/2024 10:00 AM EDT Nurse Only Ancillary, [place] [address] [place] [address] [place], Nurse Annual Wellness [address] [place] [phone] 07/09/2024 3:10 PM EST Office Visit Dermatology, [place] Carmelo Weaver [address] [place] [address] Denice Rangel PA-C [address] [place] [address] Scheduled Procedures Name Priority Associated Diagnoses Date/Ti me COLONOSCOPY FLEXIBLE PROXIMAL DIAGNOSTIC Polyp of colon, unspecified part of colon, unspecified type Family history of colon cancer in father 02/28/2024 8:00 AM EDT Health Maintenance Due Date Last Done Comments COLONOSCOPY-ANNUAL AGES 18-100 02/17/2023 02/17/2022, 02/17/2022, 06/22/2021, Additional history exists COVID-19 Vaccine (2022- season) 2023 07/12/2021, 10/28/2020, 09/30/2020 GFR 03/29/2024 09/29/2023, 05/23, 06/09/2023, Additional history exists Depression Screening 06/06/2024 06/06/2023 CKD PHOS USE SMARTSET 74964 06/09/202405/22, 06/06/2022, 08/23/2021, Additional history exists TSH 06/09/2024 06/09/2023, 05/21, 12/23/2021, Additional history exists Albumin/Creatinine Ratio 06/23/2024 023, 10/18/2022, 06/15/2017 CKD HGB USE SMARTSET 67315 09/29/202409/29, 11/10/2022, 11/10/2022, Additional history exists DXA Scan 01/25/2026 01/25/2021, 04/22, 04/24/2012, Additional history exists DTaP,Tdap,and Td Vaccines (2 - Td or Tdap) 08/24/2028 08/24/2018, 05/08/2008 Pneumococcal Vaccine: 65+ Years Completed 09/30/2015, 06/12/2007 Zoster Vaccines Completed 06/16/2020, 070 08/2019, 08/06/2010 COLONOSCOPY-EVERY 3 YRS AGES 18-100 [...] this encounter Medical Devices Implanted Type Area Bread And Pastry Baker Device Identifier Shelf Expiration Date Model / Serial / Lot Clip Quick 2.8mm 230cm - [id number] Implanted:Qty: 1 on 02/17/2022 by Jovan Haile MD at ENDOSCOPY [facility] [employer] 08/20/2022 HX-202UR.A / / [id number] Lens Intraoc 22.5 - [id number] - [id number] Implanted:Qty: 1 on 10/25/2022 by Hector Pappas MD at OR [facility] Left: Eye [employer] 07/20/2027 [id number] / [id number] / [id number] Lens Intraoc 23.0 - [id number] - [id number] Implanted:Qty: 1 on 11/08/2022 by Hector Pappas MD at OR [facility] Right: Eye [employer] 08/20/2027 [id number] / [id number] / [id number] documented as of this encounter Advance Directives Documents on File Type Date Recorded 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 Question Answer Comments Discussion of Advance Directives occurred with: Patient Does the patient have a Living Will? No Does the patient have Health Care Power of Yard Coordinator? No Code Status History Code Status Date Activated Date Inactivated Comments No Code 10/25/2022 8:20 AM 10/25/2022 2:59 PM This or larisa reflects the patients wishes and were consensually agreed upon. Question Answer Comments Discussion of Advance Directives occurred with: Patient Does the patient have a Living Will? No Does the patient have Health Care Power of Yard Coordinator? No Care Teams Manager Photo Relationship Specialty Start Date End Date Rajesh Griffith DO [address] [place] [address] PCP - General Family Medicine 06/06/23 documented as of this encounter
--- OUTSIDE RECORDS SUMMARY | 2023-10-19 19:48 | External Medical Summary | Summary of Care ---
Author Name Unknown Organization [facility] Address [address] [address] Phone [phone] Care Team Providers Care Hoof And Shoe Inspector Name Role Phone Rajesh Griffith DO Primary Care Provider + [phone] Reason for Visit * Reason Onset Date Comments Test Results 10/13/2023 Encounter Details Date Type Department Care Team (Late st Contact Info) Description 10/13/2023 Telephone Cardiology, [facility] [address] [place] [address] Juana Levi PA-C [address] [place] [address] Test Results Allergies Active Allergy Reactions Criticality Noted Date Comments Amoxicillin 04/09/2002 swelling Diltiazem Hcl Itching,Rash 06/05/2005 Cephalexin 05/09/2023 Yeast infection Citalopram 01/23/2003 Celexa - felt like in "[place]la land" - no emotion Hydrocodone 10/02/2012 Meloxicam 02/26/2004 Ibuprofen is OK Oxycodone Hcl 02/23/2010 Made pt.vomit Penicillins Hives 10/07/2008 Quinapril Hcl 07/27/2005 Angioedema - [facility] 02/20 Salicylates 02/26/2004 Bextra Ibuprofen is OK [place] Fumarate 05/09/2008 headaches documented as of this encounter (statuses as of 10/13/2023) Medications Medication Sig Dispensed Refills Start Date [...] Reported on 10/18/2022 RONA 180 MG PO TABSIndications:Implementation Project Coordinator reena rhinitis,Allergic urticaria Take by mouth daily. 90 Tab 3 07/31/2014 Active Simethicone 125 MG Oral Capsule Take by mouth as needed. 0 Active Sodium Hyaluronate 60 MG/3ML Intra-articular Prefilled Syringe (INNOBI) Inject 1 syringe intra-articularly into left knee [...] 0 Active Vitamin D (Ergocalciferol) 1.25 MG (58055 UT) Oral Capsule (Drisdol)Indications :Vitamin D deficiency [...] as of this encounter (statuses as of 10/13/2023) Active Problems Problem Noted Date Diagnosed Date [...] POA Alvin 2 POA brother Krishna Stewart [phone] given brochure . Encouraged again HTN, goal [...] hip fracture is 3.8 %. 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 Hemoglobin Results: HGB(g/dL) [facility]/ Resulted Value Status 12/19/16 7:14A 12/19/16 12.3 [...] Markers for Patients with Cardiovascular Disease Project #[id number] PI: Jazzmine Carolina MD Please call [phone] with study related questions GENOMICS CARDIO RESEARCH OTHER*[id number] 04/08/2009 09/27/2016 Overview: Renamed Per Clinical Trials Billing Project. Study Titile: Genomic Markers for Patients with Cardiovascular Disease Project #[id number] PI: Jazzmine Carolina MD Please call [phone] with study related questions ABNORMAL stress echo LH 02/2604/07/2009 12/24/2018 Overview: Cath at [facility] 03/29 showed mild luminal irregularites and mild [...] as of this encounter (statuses as of 10/13/2023) Immunizations Name Administration Dates Next Due COVID-19 [...] on file documented as of this encounter Miscellaneous Notes * Telephone Encounter - Lottie Bates CMA - 10/13/2023 4:08 PM EST My g sent. * Telephone Encounter - Lottie Bates CMA - 10/13/2023 4:07 PM EST ----- Message from Juana Levi PA-C sent at 10/13/2023 3:39 PM EST ----- Echo results reviewed. Normal LV systolic function with EF 55-59% Left atrium is severely enlarged. This is not an acute concern but may lead to future atrial fibrillation. Will monitor. No significant valvular heart disease Ascending aorta is mildly enlarged and stable at 4.0 cm. No concerning findings. No further cardiac testing warranted prior to planned knee surgery documented in this encounter Plan of Treatment Upcoming Encounters Date Type Department Care Team (Latest Contact Info) Description 10/16/2023 9:00 AM EST Office Visit Family [place] [address] Dylon Jacob [address] [place] [address] Rajesh Griffith, DO [address] [place] [address] 10/16/2023 2:00 PM EST Office Visit [place] [address] Dylon [address] [place] [address] [facility] Business Process Representative [facility] [address] [place] [address] 12/28/2023 9:00 AM EDT Nutrition Services Nutrition Services Dylon Jacob [address] [place] [address] Lyndsey Alegria, EMMA 30 [facility] 11 [place] [address] 01/31/2024 11:40 AM EDT Office Visit [facility] [address] [facility] [place] [address] Ana Martino PA-C [address] [place] [address] 02/28/2024 8:00 AM EDT Hospital Encounter ENDO GE, Endoscopy [address] [place] [phone] Jovan Haile MD [address] [place] [address] 02/28/2024 8:00 AM EDT - 02/28/2024 8:30 AM EDT Surgery ENDO GE, Endoscopy [address] [place] [phone] Jovan Haile MD [address] [place] [address] COLONOSCOPY FLEXIBLE PROXIMAL DIAGNOSTIC 05/14/2024 10:00 AM EDT Nurse Only Ancillary, [place] [address] [place] [address] [place], Nurse Annual Wellness [address] [place] [address] 07/09/2024 3:10 PM EST Office Visit Dermatology, Carmelo Dubose [address] [place] [address] [place] [address] Denice Rangel PA-C [address] [place] [address] [place] [address] Scheduled Procedures Name Priority Associated Diagnoses Date/Ti me COLONOSCOPY FLEXIBLE PROXIMAL DIAGNOSTIC Polyp of colon, unspecified part of colon, unspecified type Family history of colon cancer in father 02/28/2024 8:00 AM EDT Health Maintenance Due Date Last Done Comments COLONOSCOPY-ANNUAL AGES 18-100 02/17/2023 02/17/2022, 02/17/2022, 06/22/2021, Additional history exists COVID-19 Vaccine ( - 2022-24 season) 2023 07/12/2021, 10/28/2020, 09/30/2020 GFR 03/29/2024 09/29/2023, 05/23, 06/09/2023, Additional history exists Depression Screening 06/06/2024 06/06/2023 CKD PHOS USE SMARTSET 20051 06/09/202405/22, 06/06/2022, 08/23/2021, Additional history exists TSH 06/09/2024 06/09/2023, 05/21, 12/23/2021, Additional history exists Albumin/Creatinine Ratio 06/23/2024 023, 10/18/2022, 06/15/2017 CKD HGB USE SMARTSET 26843 09/29/202409/29, 11/10/2022, 11/10/2022, Additional history exists DXA [...] this encounter Medical Devices Implanted Type Area Airplane Pilot Helper Device Identifier Shelf Expiration Date Model / Serial / Lot Clip Quick 2.8mm 230cm - [id number] Implanted:Qty: 1 on 02/17/2022 by Jovan Haile MD at ENDOSCOPY [facility] [employer] 08/20/2022 [id number]-202UR.A / / [id number] Lens Intraoc 22.5 - [id number] - [id number] Implanted:Qty: 1 on 10/25/2022 by Hector Pappas MD at OR [facility] Left: Eye [employer] 07/20/2027 [id number] / [id number] / [id number] Lens Intraoc 23.0 - [id number] - [id number] Implanted:Qty: 1 on 11/08/2022 by Hector Pappas MD at OR [facility] Right: Eye [employer] 08/20/2027 [id number] / [id number] / [id number] documented as of this encounter Advance Directives Documents on File Type Date Recorded 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 Question Answer Comments Discussion of Advance Directives occurred with: Patient Does the patient have a Living Will? No Does the patient have Health Care Power of Prop Setter? No Code Status History Code Status Date Activated Date Inactivated Comments No Code 10/25/2022 8:20 AM 10/25/2022 2:59 PM This or larisa reflects the patients wishes and were consensually agreed upon. Question Answer Comments Discussion of Advance Directives occurred with: Patient Does the patient have a Living Will? No Does the patient have Health Care Power of Prop Setter? No Care Teams Hoof And Shoe Inspector Relationship Specialty Start Date End Date Rajesh Griffith DO [address] [place] [address] PCP - General Family Medicine 06/06/23 documented as of this encounter
--- OUTSIDE RECORDS SUMMARY | 2023-10-19 19:48 | External Medical Summary | Summary of Care ---
Author Name Unknown Organization [facility] Address [address] [facility] [facility] [address] Phone [phone] Care Team Providers Care Customer Contact Specialist Name Role Phone Rajesh Griffith DO Primary Care Provider + [phone] Reason for Visit * Reason Onset Date Comments Advice 10/11/2023 Gurmeet Encounter Details Date Type Department Care Team (Late st Contact Info) Description 10/11/2023 Telephone Cardiology, [facility] [address] [place] [address] Juana Levi PA-C [address] [place] [address] Advice (Gurmeet) Allergies Active Allergy Reactions Criticality Noted Date Comments Amoxicillin 04/09/2002 swelling Diltiazem Hcl Itching,Rash 06/05/2005 Cephalexin 05/09/2023 Yeast infection Citalopram 01/23/2003 Celexa - felt like in "la-la land" - no emotion Hydrocodone 10/02/2012 Meloxicam 02/26/2004 Ibuprofen is OK Oxycodone Hcl 02/23/2010 Made pt.vomit Penicillins Hives 10/07/2008 Quinapril Hcl 07/27/2005 Angioedema - [facility] 02/20 Salicylates 02/26/2004 Bextra Ibuprofen is [...] Reported on 10/18/2022 RONA 180 MG PO TABSIndications:Beater Operator reena rhinitis,Allergic urticaria Take by mouth daily. 90 Tab 3 07/31/2014 Active Simethicone 125 MG Oral Capsule Take by mouth as needed. 0 Active Sodium Hyaluronate 60 MG/3ML Intra-articular Prefilled Syringe ([facility]) Inject 1 syringe intra-articularly into left knee [...] 0 Active Vitamin D (Ergocalciferol) 1.25 MG (35076 UT) Oral Capsule (Drisdol)Indications :Vitamin D deficiency [...] POA Alvin 2 POA brother Krishna Stewart [phone] given brochure . Encouraged again HTN, goal [...] hip fracture is 3.8 %. 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 Hemoglobin Results: HGB(g/dL) [facility] Dt/ Resulted Value Status 12/19/16 7:14A 12/19/16 [...] Markers for Patients with Cardiovascular Disease Project #[id number] PI: Jazzmine Carolina MD Please call [phone] with study related questions GENOMICS CARDIO RESEARCH OTHER*[id number] 04/08/2009 09/27/2016 Overview: Renamed Per Clinical Trials Billing Project. Study Titile: Genomic Markers for Patients with Cardiovascular Disease Project #[id number] PI: Jazzmine Carolina MD Please call [phone] with study related questions ABNORMAL stress echo LH 02/2604/07/2009 12/24/2018 Overview: [place] [facility] [place] showed mild luminal [...] mRNA, LNP-s, No Pre serve, 2-Dose Series (Syrinix) 07/12/2021,10/28/2020,09/30/2020 H1N1 2009 Influenza, IM 12/18/2009 Pneumococcal [...] encounter Miscellaneous Notes * Telephone Encounter - Michelle Chaparro OSA - 10/11/2023 2:08 PM EST Spoke with Ed and Pt, echo scheduled for 10/13. * Telephone Encounter - Juana Levi PA-C - 10/11/2023 1:34 PM EST Echo was to be done pre surgery. Discussed with echo staff. They will find a spot to reschedule. * Telephone Encounter - Noris Archer CMA - 10/11/2023 12:20 PM EST Is echo to be done pre-op or routine? * Telephone Encounter - Jazzy Leos OSA - 10/11/2023 9:03 AM EST Person calling: Ama Relationship to patient: self Number to return call: h [phone] cell [phone] Reason for call: Pt had echo scheduled yesterday that was cx. We dont have any openings before her surgery date of . Pt asking if echo is actually needed for pre surg, or is it something she can do after . Please advise. Thank you Pharmacy: Provider Name:Gurmeet documented in this encounter Plan of Treatment Upcoming Encounters Date Type Department Care Team (Latest Contact Info) Description 10/11/2023 3:00 PM EST Office Visit Family Practice [address] [place] [address] [place] [id number] [facility] Housekeeping Laundry Worker [facility] Prac [address] [place] [id number] 10/13/2023 9:15 AM EST Cardiac Studies Cardiac Studies, [facility] 132 [facility] [place] [address] 10/13/2023 12:30 PM EST Office Visit Family Practice 65 [facility] [place] [address] [place] [address] [place], Health Housekeeping Laundry Worker Fam Prac [address] [place] [address] 10/16/2023 9:00 AM EST Office Visit [facility] [address] [place] [address] Rajesh Griffith, DO [address] [place] [address] 10/16/2023 2:00 PM EST Office Visit [facility] [address] [place] [address] [place] [address] [place], Health Housekeeping Laundry Worker [facility] Prac [address] [place] [address] 12/28/2023 9:00 AM EDT Nutrition Services Nutrition Services [address] [place] [address] [place] [phone] Lyndsey Alegria, HERIN 30 [facility] 11 [place] [address] 01/31/2024 11:40 AM EDT Office Visit Otolaryngology [facility] [address] [place] [address] Ana Martino PA-C [address] [place] [address] 02/28/2024 8:00 AM EDT Hospital Encounter ENDO [facility], Endoscopy [address] [place] [phone] Jovan Haile MD [address] [place] [address] 02/28/2024 8:00 AM EDT - 02/28/2024 8:30 AM EDT Surgery ENDO [facility], Endoscopy Suite [facility] [address] [facility] [place] [phone] Jovan Haile MD [address] [place] [address] COLONOSCOPY FLEXIBLE PROXIMAL DIAGNOSTIC 05/14/2024 10:00 AM EDT Nurse Only Ancillary, [place] [address] [place] [address] [place], Nurse Annual Wellness [address] [place] [address] 07/09/2024 3:10 PM EST Office Visit Dermatology, Carmelo Dubose [address] [place] [address] [place] [address] Denice Rangel PA-C [address] [place] [address] [place] [address] Scheduled Procedures Name Priority Associated Diagnoses Date/Ti [...] Screening 06/06/2024 06/06/2023 CKD PHOS USE SMARTSET 51198 06/09/202405/22, 06/06/2022, 08/23/2021, Additional history exists TSH 06/09/2024 06/09/2023, 05/21, 12/23/2021, Additional history exists Albumin/Creatinine Ratio 06/23/2024 023, 10/18/2022, 06/15/2017 CKD HGB USE SMARTSET 58275 09/29/202409/29, 11/10/2022, 11/10/2022, Additional history exists DXA [...] this encounter Medical Devices Implanted Type Area General House Worker Device Identifier Shelf Expiration Date Model / Serial / Lot Clip Quick 2.8mm 230cm - [id number] Implanted:Qty: 1 on 02/17/2022 by Jovan Haile MD at ENDOSCOPY [facility] [employer] 08/20/2022 HX-202UR.A / / [id number] Lens Intraoc 22.5 - [id number] - [id number] Implanted:Qty: 1 on 10/25/2022 by Hector Pappas MD at OR [facility] Left: Eye [employer] 07/20/2027 [id number] / [id number] / [id number] Lens Intraoc 23.0 - [id number] - [id number] Implanted:Qty: 1 on 11/08/2022 by Hector Pappas MD at OR [facility] Right: Eye [employer] 08/20/2027 [id number] / [id number] / [id number] documented as of this encounter Advance Directives Documents on File Type Date Recorded Patient Manager Inventory Control Expl anation Power of Barmaid 03/07/2021 POWER OF A TTORNEY Latest Code Status on File Code Status Date Activated Date Inactivated Comments No Code 11/08/2022 7:49 AM 11/08/2022 3:01 PM This order reflects the patients wishes and were consensually agreed upon. Question Answer Comments Discussion of Advance Directives occurred with: Patient Does the patient have a Living Will? No Does the patient have Health Care Power of Barmaid? No Code Status History Code Status Date Activated Date Inactivated Comments No Code 10/25/2022 8:20 AM 10/25/2022 2:59 PM This or larisa reflects the patients wishes and were consensually agreed upon. Question Answer Comments Discussion of Advance Directives occurred with: Patient Does the patient have a Living Will? No Does the patient have Health Care Power of Barmaid? No Care Teams Customer Contact Specialist Relationship Specialty Start Date End Date Rajesh Griffith DO [address] [place] [address] PCP - General Family Medicine 06/06/23 documented as of this encounter
--- OUTSIDE RECORDS SUMMARY | 2023-10-19 19:49 | External Medical Summary | Summary of Care ---
Author Name Unknown Organization [facility] Address [address] [place] [address] Phone [phone] Care Team Providers Care Retort Firer Name Role Phone Rajesh Griffith DO Primary Care Provider [phone] Encounter Details Date Type Department Care Team (Late st Contact Info) Description 10/02/2023 Orders Only Family Practice [address] [place] [address] Rajesh Griffith DO [address] [place] [address] Allergies Active Allergy Reactions Criticality Noted Date Comments Amoxicillin 04/09/2002 swelling Diltiazem Hcl Itching,Rash 06/05/2005 Cephalexin 05/09/2023 Yeast infection Citalopram 01/23/2003 Celexa - felt like in "[place]" - no emotion Hydrocodone 10/02/2012 Meloxicam 02/26/2004 Ibuprofen is OK Oxycodone Hcl 02/23/2010 Made pt.vomit Penicillins Hives 10/07/2008 Quinapril Hcl 07/27/2005 Angioedema - [facility] 02/20 Salicylates 02/26/2004 Bextra Ibuprofen is [...] Reported on 10/18/2022 RONA 180 MG PO TABSIndications:Patient Care Technician reena rhinitis,Allergic urticaria Take by mouth daily. 90 Tab 3 07/31/2014 Active Simethicone 125 MG Oral Capsule Take by mouth as needed. 0 Active Sodium Hyaluronate 60 MG/3ML Intra-articular Prefilled Syringe ([employer]) Inject 1 syringe intra-articularly into left knee [...] 0 Active Vitamin D (Ergocalciferol) 1.25 MG (96401 UT) Oral Capsule (Drisdol)Indications :Vitamin D deficiency [...] POA Alvin 2 POA brother Krishna Stewart [phone] given brochure . Encouraged again HTN, goal [...] hip fracture is 3.8 %. 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 Study Titile: Genomic Markers for Patients with Cardiovascular Disease Project #[id number] PI: Jazzmine Carolina MD Please call [phone] with study related questions ABNORMAL stress echo LH 02/2604/07/2009 12/24/2018 Overview: [place] [facility] [place] showed mild luminal irregularites and mild [...] mRNA, LNP-s, No Pre serve, 2-Dose Series ([employer]) 07/12/2021,10/28/2020,09/30/2020 H1N1 2009 Influenza, IM 12/18/2009 Pneumococcal [...] Visit Family Practice [address], Dylon [address] [place] [id number] Dylon, Health Business Area Director Fam Prac [address] [place] [id number] 10/11/2023 8:00 AM EST Cardiac Studies Cardiac Studies, [facility] [address] [place] [address] 10/13/2023 9:00 AM EST Nutrition Services Nutrition Services 65 [facility] [address] [place] [address] Lyndsey Alegria, RDN [address] [facility] [address] [place] [address] 10/16/2023 9:00 AM EST Office Visit Family Practice 65 [facility] [address] [place] [address] Rajesh Griffith DO [address] [place] [address] 01/08/2024 11:00 AM EDT Cardiac Studies Cardiac Studies, [facility] [address] [place] [address] 01/31/2024 11:40 AM EDT Office Visit Otolaryngology [facility] [address] [place] [address] Ana Martino PA-C [address] [place] [address] 02/28/2024 8:00 AM EDT Hospital Encounter ENDO [facility], Endoscopy [address] [phone] Jovan Haile MD [address] [place] [address] 02/28/2024 8:00 AM EDT - 02/28/2024 8:30 AM EDT Surgery ENDO [facility], Endoscopy [address] [phone] Jovan Haile MD [address] [place] [address] COLONOSCOPY FLEXIBLE PROXIMAL DIAGNOSTIC 05/14/2024 10:00 AM EDT Nurse Only Ancillary, [address] [place] [phone] [place], Nurse Annual Wellness [address] [place] [address] 07/09/2024 3:10 PM EST Office Visit Dermatology, Carmelo Dubose [address] [place] [address] Denice Rangel PA-C [address] [place] [phone] Scheduled Procedures Name Priority Associated Diagnoses Date/Ti me COLONOSCOPY FLEXIBLE PROXIMAL DIAGNOSTIC Polyp of colon, unspecified part of colon, unspecified type Family history of colon cancer in father 02/28/2024 8:00 AM EDT Health Maintenance Due Date Last Done Comments COLONOSCOPY-ANNUAL AGES 18-100 02/17/2023 02/17/2022, 02/17/2022, 06/22/2021, Additional history exists COVID-19 Vaccine ( season) 2023 07/12/2021, 10/28/2020, 09/30/2020 CKD HGB USE SMARTSET 78017 11/11/202309/29, 11/10/2022, 11/10/2022, Additional history exists GFR 12/19/2023 09/29/2023, 05/23, 06/09/2023, Additional history exists Depression Screening 06/06/2024 06/06/2023 CKD PHOS USE SMARTSET 41699 06/09/202405/22, 06/06/2022, 08/23/2021, Additional history exists TSH [...] this encounter Medical Devices Implanted Type Area Communication Assistant Device Identifier Shelf Expiration Date Model / Serial / Lot Clip Quick 2.8mm 230cm - [id number] Implanted:Qty: 1 on 02/17/2022 by Jovan Haile MD at ENDOSCOPY [facility] [employer] [facility] 08/20/2022 [id number] / / [id number] Lens Intraoc 22.5 - [id number] - [id number] Implanted:Qty: 1 on 10/25/2022 by Hector Pappas MD at OR [facility] Left: Eye [employer] 07/20/2027 [id number] / [id number] / [id number] Lens Intraoc 23.0 - [id number] - [id number] Implanted:Qty: 1 on 11/08/2022 by Hector Pappas MD at [facility] Right: Eye [employer] 08/20/2027 [id number] / [id number] / [id number] documented as of this encounter Procedures Procedure Name Priority Date/Time Associated Diagnosis Comments CHEMISTRY-OUTSIDE Routine 09/29/2023 documented in this encounter Results * CHEMISTRY-OUTSIDE (09/29/2023) Not all results display below - see scan for full detail OUTSIDE LAB (SEE SCANNED REPORT) Comment:SEE SCAN - PTINR, CB CD, UR, BMP, ALB CREATININE-OUTSID E LAB 1.12 0.6 - 1.2 MG/DL OUTSIDE LAB (SEE SCANNED REPORT) EGFR-OUTSIDE LAB 46.0 ML/MIN OUT SIDE LAB (SEE SCANNED REPORT) POTASSIUM-OUTSIDE LAB 4.1 3.5 - 5.1 MMOL/L OUTSIDE LAB (SEE SCANNED REPORT) GLUCOSE-OUTSIDE LAB 90 70 - 99 MG/DL OUTSIDE LAB (SEE SCANNED REPORT) HOURS FASTING OUTSID E LAB (SEE SCANNED REPORT) TRIGLYCERIDES-OUT SIDE LAB OUTSIDE LAB (SEE SCANNED REPORT) CHOLESTEROL-OUTSI DE LAB OUTSIDE LAB (SEE SCANNED REPORT) HDL-OUTSIDE LAB OUTS VANESSA LAB (SEE SCANNED REPORT) CHOL/HDL RATIO-OUTSIDE LAB OUTSIDE LA B (SEE SCANNED REPORT) LDL (CALCULATED)-OUTS VANESSA LAB OUTSIDE LAB (SEE SCANNED REPORT) LDL (DIRECT MEASURE)-OUTSIDE LAB OUTSIDE LAB (SEE SCANNED REPORT) HEMOGLOBIN, U3R-MCDWFOD LAB OUTSIDE LAB (SEE SCANNED REPORT) PHOSPHORUS-OUTSID E LAB OUTSIDE LAB (SEE SCANNED REPORT) PTH-OUTSIDE LAB OUTS VANESSA LAB (SEE SCANNED REPORT) MICROALBUMIN RATIO-OUTSIDE LAB OUTSIDE LA B (SEE SCANNED REPORT) PROTEIN, UA-OUTSIDE LAB OUTSIDE LAB (SEE SCANNED REPORT) HEMOGLOBIN-OUTSID E LAB 12.1 12.0 - 16.0 G/DL OUTSIDE LAB (SEE SCANNED REPORT) 09/29/2023 Reji Gasca MD LABORATORY OUTSIDE LAB (SEE SCANNED REPORT) documented in this encounter Advance Directives Documents on File Type Date Recorded Patient Refractive Surgeon Expl anation Power of Offal Baler 03/07/2021 POWER OF A TTORNEY Latest Code Status on File Code Status Date Activated Date Inactivated Comments No Code 11/08/2022 7:49 AM 11/08/2022 3:01 PM This order reflects the patients wishes and were consensually agreed upon. Question Answer Comments Discussion of Advance Directives occurred with: Patient Does the patient have a Living Will? No Does the patient have Health Care Power of Offal Baler? No Code Status History Code Status Date Activated Date Inactivated Comments No Code 10/25/2022 8:20 AM 10/25/2022 2:59 PM This or larisa reflects the patients wishes and were consensually agreed upon. Question Answer Comments Discussion of Advance Directives occurred with: Patient Does the patient have a Living Will? No Does the patient have Health Care Power of Offal Baler? No Care Teams Retort Firer Relationship Specialty Start Date End Date Rajesh Griffith DO [address] [place] [address] PCP - General Family Medicine 06/06/23 documented as of this encounter
[2023-10-19] MEDS: DOCUSATE SODIUM 100 MG CAP PO SCH (19:57)
[2023-10-19] MEDS: PRAVASTATIN SOD 20 MG TAB PO SCH (19:58)
[2023-10-19] MEDS: EZETIMIBE 10 MG TAB PO SCH (19:59)
[2023-10-19] MEDS: MONTELUKAST SODIUM 10 MG TABLET PO SCH (19:59)
[2023-10-19] MEDS: ASPIRIN 81 MG ECTAB PO SCH (19:59)
[2023-10-19] MEDS: SENNA 8.6 MG TAB PO SCH (19:59)
[2023-10-19] MEDS: carvediloL 6.25 MG TAB PO SCH (20:00)
[2023-10-19] MEDS: VANCOMYCIN HCL 1,250 MG in SODIUM CHLORIDE 0.9% 250 ML IV SCH (20:08)
[2023-10-19] MEDS ORDERED: NON-FORMULARY MEDICATION (Multivitamin Tablet) PO SCH (21:00)
[2023-10-19] MEDS: traZODone HCL 50 MG TAB PO PRN (23:01)
[2023-10-20] MEDS: LEVOTHYROXINE SODIUM 25 MCG TABLET PO SCH (05:42)
--- NOTE | 2023-10-20 07:29 | Orthopedic Progress Note ---
Date of Service October 20, 2023 Assessment & Plan (1) Primary osteoarthritis of left knee: Plan: Postop day #1 left total knee arthroplasty -PT/OT -Pain management as written -DVT prophylaxis: SCDs, teds, aspirin 81 mg twice daily -A.m. labs are pending -Discharge planning: Patient is requesting inpatient rehab at [place]. Case management consult in place. Patient stable for discharge from orthopedic standpoint once placement is arranged. Admission and Anticipated Discharge Date Admission Date: October 19, 2023 Subjective Patient is postop day #1 left total knee arthroplasty. She is doing well this morning. Pain is controlled with p.o. tramadol. Typically gets GI upset from pain medication however tolerating tramadol with antinausea medication. Will plan on discharging home with antinausea meds along with her pain medication. No other complaints at this time. Denies chest pain, shortness of breath, nausea/vomiting/diarrhea, headaches or dizziness. Review of Systems Review of Systems: All systems reviewed & are unremarkable except as noted in Subjective Physical Exam Physical Exam: Left knee: Dressing is clean, dry, intact. Toes are mobile with good dorsiflexion. No calf tenderness. Distal neurovascular status and sensation is grossly intact. Results & Data Vital Signs (Past 12 Hours) Vital Signs Temp Pulse Resp BP Pulse Ox O2 Del Method 10/20/23 04:00 36.8 C 79 16 135/82 93 Room Air 10/19/23 23:05 36.3 C L 60 16 155/62 H 93 Room Air
--- NOTE | 2023-10-20 08:19 | Hospitalist Progress Note ---
Date of Service October 20, 2023 Assessment & Plan (1) Acute blood loss as cause of postoperative anemia: Plan: POD #1, hgb from 12.1 preop to 10.5 postop possible bleeding from surgical site today Repeat CBC, transfuse < 7 (2) SUMMER (acute kidney injury): (3) Chronic kidney disease, stage 3: Plan: chronic, stable. Baseline creatinine is around 1.2-1.4 per outpatient record review. Concern for SUMMER given Cr uptrend Hold SUSANA, HCTZ Gentle fluids Repeat BMP in am (4) Post-operative state: Plan: s/p L TKA by Dr. Elo DOUGLAS 5cc POD #1 -pain/wound management per Ortho -VTE prophylaxis per Ortho (ASA 81mg PO BID), encourage early ambulation -incentive spirometry encouraged -CBC, BMP in am -PT/OT and activity restrictions per Ortho (5) Primary osteoarthritis of left knee: Plan: s/p L TKA elective today. Cont APAP and TRamadol as needed. Cont ICE and plan as above. (6) Hypertension: Plan: chronic, around goal. Cont amlodipine, HCTZ, Coreg and losartan per home regimen. (7) Dyslipidemia: Plan: Chronic, stable. Cont Pravachol and Zetia per home regimen. (8) Hypothyroidism: Plan: chronic, stable per recent TSH in Jun 12. Cont home levothyroxine. Thank you for this consultation. Agree with medications as ordered (reviewed with patient also). She is tolerating the Tramadol for pain management at this time. CBC/BMP in am. Cont standard DVT prophylaxis and need to consult case management for rehab evaluation. I spent a total [id number] coordinating, documenting, and providing care for this patient excluding time spent in the performance of separately billed services Mirna Addison DO [facility] and Anticipated Discharge Date Admission Date: October 19, 2023 Subjective Patient evaluated at bedside Denies any acute events, feels positive about rehab coming up Physical Exam Constitutional: WD/WN, vitals as above Respiratory: normal respiratory effort, lungs clear to auscultation Cardiovascular: RRR, no murmur, no edema Gastrointestinal (Abdomen): normal bowel sounds, soft, nontender, no hepatosplenomegaly Musculoskeletal: left leg with drain visible and susana bandage in place CDI Results & Data Results & Data Vital Signs (Past 12 Hours) Vital Signs Temp Pulse Resp BP BP Pulse Ox O2 Del Method 10/20/23 07:48 36.6 C 66 18 153/74 H 93 Room Air 10/20/23 04:00 36.8 C 79 16 135/82 93 Room Air 10/19/23 23:05 36.3 C L 60 16 155/62 H 93 Room Air Laboratory Results Short CBC 10/20/23 Range/Units 08:43 WBC 12.60 H (4.8-10.8) K/ul Hgb 10.5 L (12.0-16.0) g/dl Hct 32.9 L (37.0-47.0) % Plt Count 283 (130-400) K/uL BMP 10/20/23 10/20/23 08:43 15:40 Sodium 138 137 Potassium 4.1 4.3 Chloride 105 105 Carbon Dioxide 25 24 BUN 34 H 35 H Creatinine 1.29 H 1.56 H Glucose 166 H 98 Calcium 9.0 9.1 Medications Administered Home Medications Medication Instructions Recorded Confirmed Last Taken acetaminophen 650 mg 1,300 mg PO Q12H PRN Pain 09/25/23 10/19/23 10/19/23 05:30 tablet,extended release amlodipine 5 mg tablet 5 mg PO BID 09/25/23 10/19/23 10/19/23 05:30 ascorbic acid (vitamin C) 500 mg 500 mg PO QAM 09/25/23 10/19/23 10/18/23 08:00 tablet (Vitamin C) aspirin 81 mg capsule 81 mg PO QPM 09/25/23 10/19/23 10/12/23 carvedilol 6.25 mg tablet 6.25 mg PO BID 09/25/23 10/19/23 10/19/23 05:30 coQ10 (ubiquinol) 200 mg capsule 200 mg PO QAM 09/25/23 10/19/23 10/05/23 diphenhydramine HCl 25 mg capsule 25 - 50 mg PO HS PRN Sleep 09/25/23 10/19/23 10/18/23 23:55 (Benadryl) ezetimibe 10 mg tablet 10 mg PO QPM 09/25/23 10/19/23 10/18/23 18:30 fexofenadine 180 mg tablet 180 mg PO QAM 09/25/23 10/19/23 10/17/23 glucosamine 750 zv-ovwifybadin-pno 1 tab PO BID 09/25/23 10/19/23 10/05/23 no1 644 mg-C 30 mg-jennifer 1 mg tablet (Osteo Bi-Flex Triple Strength) hydrochlorothiazide 25 mg tablet 25 mg PO QAM 09/25/23 10/19/23 10/18/23 08:00 levothyroxine 25 mcg tablet 25 mcg PO 5XWK 09/25/23 10/19/23 10/18/23 levothyroxine 25 mcg tablet 50 mcg PO 2XWK 09/25/23 10/19/23 10/19/23 05:30 losartan 100 mg tablet 100 mg PO QAM 09/25/23 10/19/23 10/18/23 melatonin 5 mg tablet 5 - 10 mg PO HS PRN Sleep 09/25/23 10/19/23 10/18/23 montelukast 10 mg tablet 10 mg PO HS 09/25/23 10/19/23 10/18/23 20:00 multivitamin 1 tab PO HS 09/25/23 10/19/23 10/18/23 18:30 pravastatin 20 mg tablet 20 mg PO QPM 09/25/23 10/19/23 10/18/23 18:30 trazodone 50 mg tablet 50 mg PO HS PRN Sleep 09/25/23 10/19/23 10/18/23 20:00 acetaminophen 500 mg tablet 1,000 mg (2 x 500 mg) PO Q8 #60 10/19/23 10/19/23 Unknown (Tylenol Extra Strength) tabs aspirin 81 mg tablet,delayed 81 mg PO BID #60 tabs 10/19/23 10/19/23 Unknown release Active Medications Generic Name Dose Route Start Last Admin Trade Name Freq PRN Reason Stop Dose Admin Acetaminophen 1,000 mg 10/19/23 14:00 10/20/23 13:31 Acetaminophen 500 Mg Tab PO 11/18/23 13:59 1,000 mg Q8 BILLIE Administration Amlodipine Besylate 5 mg 10/20/23 09:00 10/20/23 08:43 Amlodipine Besylate 5 Mg Tab PO 11/19/23 08:59 5 mg BID BILLIE Administration Ascorbic Acid 500 mg 10/20/23 09:00 10/20/23 08:43 Ascorbic Acid 500 Mg Tab PO 11/19/23 08:59 500 mg QAM BILLIE Administration Aspirin 81 mg 10/19/23 21:00 10/20/23 08:43 Aspirin 81 Mg Ectab PO 11/18/23 20:59 81 mg BID BILLIE Administration Carvedilol 6.25 mg 10/19/23 21:00 10/20/23 08:44 Carvedilol 6.25 Mg Tab PO 11/18/23 20:59 6.25 mg BID BILLIE Administration Docusate Sodium 100 mg 10/19/23 21:00 10/20/23 08:44 Docusate Sodium 100 Mg Cap PO 11/18/23 20:59 100 mg BID BILLIE Administration Ezetimibe 10 mg 10/19/23 21:00 10/19/23 19:59 Ezetimibe 10 Mg Tab PO 11/18/23 20:59 10 mg QPM BILLIE Administration Fexofenadine HCl 180 mg 10/20/23 09:00 10/20/23 08:44 Fexofenadine Hcl 180 Mg Tab PO 11/19/23 08:59 180 mg QAM BILLIE Administration Hydrochlorothiazide 25 mg 10/20/23 09:00 10/20/23 08:44 Hydrochlorothiazide 25 Mg Tab PO 11/19/23 08:59 25 mg QAM BILLIE Administration Levothyroxine Sodium 25 mcg 10/20/23 06:30 10/20/23 05:42 Levothyroxine Sodium 25 Mcg Tablet PO 11/19/23 06:29 25 mcg [id number] BILLIE Administration Losartan Potassium 100 mg 10/20/23 09:00 10/20/23 08:45 Losartan Potassium 50 Mg Tab PO 11/19/23 08:59 100 mg QAM BILLIE Administration Montelukast Sodium 10 mg 10/19/23 21:00 10/19/23 19:59 Montelukast Sodium 10 Mg Tablet PO 11/18/23 20:59 10 mg HS BILLIE Administration Multivitamins 1 tab 10/20/23 09:00 10/20/23 08:45 Multivitamin Tab PO 11/19/23 08:59 1 tab QAM BILLIE Administration Ondansetron HCl 4 mg 10/19/23 13:57 10/20/23 08:55 Ondansetron Inj 2 Mg/Ml 2 Ml Vial IV 11/18/23 13:56 4 mg Q6H PRN Administration Nausea And Vomiting Pravastatin Sodium 20 mg 10/19/23 21:00 10/19/23 19:58 Pravastatin Sod 20 Mg Tab PO 11/18/23 20:59 20 mg QPM BILLIE Administration Sennosides 17.2 mg 10/19/23 21:00 10/19/23 19:59 Senna 8.6 Mg Tab PO 11/18/23 20:59 17.2 mg HS BILLIE Administration Tramadol HCl 50 - 100 mg 10/19/23 13:57 10/20/23 08:56 Tramadol Hcl 50 Mg Tablet PO 11/18/23 13:56 50 mg Q4H PRN Administration Pain & Pre PT Trazodone HCl 50 mg 10/19/23 13:57 10/19/23 23:01 Trazodone Hcl 50 Mg Tab PO 11/18/23 13:56 50 mg HS PRN Administration Sleep (3) Chronic kidney disease, stage 3 Chronic kidney disease stage 3 subtype: stage 3a (GFR 45-59) Qualified Code(s): N18.31 - Chronic kidney disease, stage 3a
[2023-10-20] MEDS: ASCORBIC ACID 500 MG TAB PO SCH (08:43)
[2023-10-20] MEDS: amLODIPine BESYLATE 5 MG TAB PO SCH (08:43)
[2023-10-20] MEDS: FEXOFENADINE HCL 180 MG TAB PO SCH (08:44)
[2023-10-20] MEDS: hydroCHLOROthiazide 25 MG TAB PO SCH (08:44)
[2023-10-20] MEDS: MULTIVITAMIN TAB PO SCH (08:45)
[2023-10-20] MEDS: LOSARTAN POTASSIUM 50 MG TAB PO SCH (08:45)
[2023-10-20 09:10] LABS: Hematocrit (blood only) 32.9 % (37.0-47.0); Hemoglobin 10.5 g/dl (12.0-16.0); Mean Corpuscular Hemoglobin 29.2 pg (25.0-34.0); Mean Corpuscular Hgb Conc 31.9 g/dL (32.0-36.0); Mean Corpuscular Volume 91.4 fL (80.0-100.0); Mean Platelet Volume 9.9 fL (9.4-12.4); Platelet Count 283 K/uL (130-400); RDW Coefficient of Variation 14.8 % (11.5-14.5); RDW Standard Deviation 49.3 fL (36.4-46.3)
[2023-10-20 09:26] LABS: BUN Creatinine Ratio 26.4 (10-20); Est GFR (Non-African American) 38.8 ml/min; Potassium 4.1 mmol/L (3.5-5.1)
[2023-10-20] MEDS: SODIUM CHLORIDE 0.9% 250 ML IV ONE (10:11)
[2023-10-20 16:19] LABS: BUN Creatinine Ratio 22.4 (10-20); Calcium 9.1 mg/dl (8.6-10.3); Creatinine Clr Calc Pharmacy 30.6 ml/min; Est GFR (African American) 35.7 ml/min; Est GFR (Non-African American) 30.8 ml/min; Potassium 4.3 mmol/L (3.5-5.1)
[2023-10-20] MEDS: SODIUM CHLORIDE 0.9% 1,000 ML IV SCH (17:27)
[2023-10-21 06:48] LABS: Hematocrit (blood only) 29.4 % (37.0-47.0); Hemoglobin 9.4 g/dl (12.0-16.0); Mean Corpuscular Hemoglobin 29.5 pg (25.0-34.0); Mean Corpuscular Volume 92.2 fL (80.0-100.0); Platelet Count 222 K/uL (130-400); RDW Standard Deviation 50.2 fL (36.4-46.3); Red Blood Count 3.19 M/uL (4.20-5.40); White Blood Count 8.49 K/ul (4.8-10.8)
[2023-10-21 07:07] LABS: BUN Creatinine Ratio 28.1 (10-20); Calcium 8.5 mg/dl (8.6-10.3); Creatinine Clr Calc Pharmacy 35.3 ml/min; Est GFR (African American) 42.6 ml/min; Est GFR (Non-African American) 36.7 ml/min; Potassium 3.9 mmol/L (3.5-5.1)
--- NOTE | 2023-10-21 08:38 | Orthopedic Progress Note ---
Date of Service October 21, 2023 Assessment & Plan (1) Primary osteoarthritis of left knee: Plan: Postop day #2 left total knee arthroplasty -PT/OT -Pain management as written -DVT prophylaxis: SCDs, teds, aspirin 81 mg twice daily -A.m. labs:Creatinine trending down from 1.5 yesterday p.m. to 1.35 this morning. Mild drop in hemoglobin today to 9.5 from 12 preop. Acute blood loss anemia due to surgical loss versus dilutional. Patient is asymptomatic. Leukocy tosis resolved. -Discharge planning: Plan on discharge to [place] today pending how she progresses with therapy if okay with medicine team. Admission and Anticipated Discharge Date Admission Date: October 19, 2023 Subjective Postop day 2 left total knee. Is having some increasing pain today, not unexpected. No other complaints. Denies chest pain, shortness of breath, nausea/vomiting/diarrhea, headaches or dizziness. Review of Systems Review of Systems: All systems reviewed & are unremarkable except as noted in Subjective Physical Exam Physical Exam: Left knee: JAH dressing is clean, dry, intact. Hemovac site with bloody drainage. New dressing applied. No active bleeding at this time. Continue daily dressing changes as needed to Hemovac site. Toes are mobile with good dorsiflexion. No calf tenderness. Distal neurovascular status and sensation is grossly intact. Results & Data Vital Signs (Past 12 Hours) Vital Signs Temp Pulse Resp BP BP Pulse Ox O2 Del Method 10/21/23 07:47 36.8 C 59 L 16 144/69 H 94 Room Air 10/20/23 21:13 157/63 H Laboratory Results Lab Results 10/20/23 10/20/23 10/21/23 Range/Units 08:43 15:40 06:23 WBC 12.60 H 8.49 (4.8-10.8) K/ul RBC 3.60 L 3.19 L (4.20-5.40) M/uL Hgb 10.5 L 9.4 L (12.0-16.0) g/dl Hct 32.9 L 29.4 L (37.0-47.0) % MCV 91.4 92.2 (80.0-100.0) fL MCH 29.2 29.5 (25.0-34.0) pg MCHC 31.9 L 32.0 (32.0-36.0) g/dL RDW Std Deviation 49.3 H 50.2 H (36.4-46.3) fL RDW Coeff of Aydee 14.8 H 15.0 H (11.5-14.5) % Plt Count 283 222 (130-400) K/uL MPV 9.9 10.0 (9.4-12.4) fL Sodium 138 137 138 (136-145) mmol/L Potassium 4.1 4.3 3.9 (3.5-5.1) mmol/L Chloride 105 105 108 H (98-107) mmol/L Carbon Dioxide 25 24 23 (21-32) mmol/L Anion Gap 8 8 7 (3-11) BUN 34 H 35 H 38 H (6-23) mg/dl Creatinine 1.29 H 1.56 H 1.35 H (0.6-1.2) mg/dl Est Cr Clr Drug Dosing 37.0 30.6 35.3 ml/min Est GFR ( Amer) 45.0 35.7 42.6 ml/min Est GFR (Non-Af Amer) 38.8 30.8 36.7 ml/min BUN/Creatinine Ratio 26.4 H 22.4 H 28.1 H (10-20) Glucose 166 H 98 88 (70-99(Fasting)) mg/dl Calcium 9.0 9.1 8.5 L (8.6-10.3) mg/dl
--- NOTE | 2023-10-21 12:02 | Hospitalist Progress Note ---
Date of Service October 21, 2023 Assessment & Plan (1) Acute blood loss as cause of postoperative anemia: Plan: POD #2, hgb from 12.1 preop to 10.5 >9.4 possible bleeding from surgical site today, dilutional,post op loses Dressing CDI at bedside today If staying 2/2 poor performance, can repeat CBC in am or plan for repeat in 1 week as OP (2) SUMMER (acute kidney injury): (3) Chronic kidney disease, stage 3: Plan: acute, improving Baseline creatinine is around 1.2-1.4 per outpatient record review. Improving after fluids Hold SUSANA, HCTZ, Resume in morning (4) Post-operative state: Plan: s/p L TKA by Dr. Elo DOUGLAS 5cc POD #2 -pain/wound management per Ortho -VTE prophylaxis per Ortho (ASA 81mg PO BID), encourage early ambulation -incentive spirometry encouraged -PT/OT and activity restrictions per Ortho (5) Primary osteoarthritis of left knee: Plan: s/p L TKA elective. Cont APAP and TRamadol as needed. Cont ICE and plan as above. (6) Hypertension: Plan: chronic, around goal. Cont amlodipine, hold HCTZ, resume Coreg and hold losartan Resume all agents in am (7) Dyslipidemia: Plan: Chronic, stable. Cont Pravachol and Zetia per home regimen. (8) Hypothyroidism: Plan: chronic, stable per recent TSH in Jun 12. Cont home levothyroxine. Thank you for this consultation. Agree with medications as ordered (reviewed with patient also). She is tolerating the Tramadol for pain management at this time. CBC/BMP in am. Cont standard DVT prophylaxis and need to consult case management for rehab evaluation. Patient much improved and clear for discharge today contingent upon performance with PT Admission and Anticipated Discharge Date Admission Date: October 21, 2023 Subjective Patient evaluated at bedside Reports feeling exhausted from attempting to clean self, but otherwise denies any acute concerns. Patient states she is doing well, but nervous --patient comforted and questions answered Physical Exam Constitutional: WD/WN, vitals as above Respiratory: normal respiratory effort, lungs clear to auscultation Cardiovascular: RRR, no murmur, no edema Gastrointestinal (Abdomen): normal bowel sounds, soft, nontender, no hepatosplenomegaly Results & Data Results & Data Vital Signs (Past 12 Hours) Vital Signs Temp Pulse Resp BP Pulse Ox O2 Del Method 10/21/23 07:47 36.8 C 59 L 16 144/69 H 94 Room Air Laboratory Results Short CBC 10/21/23 Range/Units 06:23 WBC 8.49 (4.8-10.8) K/ul Hgb 9.4 L (12.0-16.0) g/dl Hct 29.4 L (37.0-47.0) % Plt Count 222 (130-400) K/uL BMP 10/20/23 10/21/23 15:40 06:23 Sodium 137 138 Potassium 4.3 3.9 Chloride 105 108 H Carbon Dioxide 24 23 BUN 35 H 38 H Creatinine 1.56 H 1.35 H Glucose 98 88 Calcium 9.1 8.5 L Medications Administered Home Medications Medication Instructions Recorded Confirmed Last Taken acetaminophen 650 mg 1,300 mg PO Q12H PRN Pain 09/25/23 10/19/23 10/19/23 05:30 tablet,extended release amlodipine 5 mg tablet 5 mg PO BID 09/25/23 10/19/23 10/19/23 05:30 ascorbic acid (vitamin C) 500 mg 500 mg PO QAM 09/25/23 10/19/23 10/18/23 08:00 tablet (Vitamin C) aspirin 81 mg capsule 81 mg PO QPM 09/25/23 10/19/23 10/12/23 carvedilol 6.25 mg tablet 6.25 mg PO BID 09/25/23 10/19/23 10/19/23 05:30 coQ10 (ubiquinol) 200 mg capsule 200 mg PO QAM 09/25/23 10/19/23 10/05/23 diphenhydramine HCl 25 mg capsule 25 - 50 mg PO HS PRN Sleep 09/25/23 10/19/23 10/18/23 23:55 (Benadryl) ezetimibe 10 mg tablet 10 mg PO QPM 09/25/23 10/19/23 10/18/23 18:30 fexofenadine 180 mg tablet 180 mg PO QAM 09/25/23 10/19/23 10/17/23 glucosamine 750 [id number] 1 tab PO BID 09/25/23 10/19/23 10/05/23 no1 644 mg-C 30 mg-jennifer 1 mg tablet (Osteo Bi-Flex Triple Strength) hydrochlorothiazide 25 mg tablet 25 mg PO QAM 09/25/23 10/19/23 10/18/23 08:00 levothyroxine 25 mcg tablet 25 mcg PO 5XWK 09/25/23 10/19/23 10/18/23 levothyroxine 25 mcg tablet 50 mcg PO 2XWK 09/25/23 10/19/23 10/19/23 05:30 losartan 100 mg tablet 100 mg PO QAM 09/25/23 10/19/23 10/18/23 melatonin 5 mg tablet 5 - 10 mg PO HS PRN Sleep 09/25/23 10/19/23 10/18/23 montelukast 10 mg tablet 10 mg PO HS 09/25/23 10/19/23 10/18/23 20:00 multivitamin 1 tab PO HS 09/25/23 10/19/23 10/18/23 18:30 pravastatin 20 mg tablet 20 mg PO QPM 09/25/23 10/19/23 10/18/23 18:30 trazodone 50 mg tablet 50 mg PO HS PRN Sleep 09/25/23 10/19/23 10/18/23 20:00 acetaminophen 500 mg tablet 1,000 mg (2 x 500 mg) PO Q8 #60 10/19/23 10/19/23 Unknown (Tylenol Extra Strength) tabs aspirin 81 mg tablet,delayed 81 mg PO BID #60 tabs 10/19/23 10/19/23 Unknown release ondansetron 4 mg disintegrating 4 mg PO Q8H PRN nausea and 10/21/23 Unknown tablet vomiting #20 tabs tramadol 50 mg tablet 50 - 100 mg (1 - 2 x 50 mg) PO 10/21/23 Unknown .Q4h-6h PRN pain #30 tabs Active Medications Generic Name Dose Route Start Last Admin Trade Name Freq PRN Reason Stop Dose Admin Acetaminophen 1,000 mg 10/19/23 14:00 10/21/23 05:52 Acetaminophen 500 Mg Tab PO 11/18/23 13:59 1,000 mg Q8 BILLIE Administration Amlodipine Besylate 5 mg 10/20/23 09:00 10/21/23 08:02 Amlodipine Besylate 5 Mg Tab PO 11/19/23 08:59 5 mg BID BILLIE Administration Ascorbic Acid 500 mg 10/20/23 09:00 10/21/23 08:02 Ascorbic Acid 500 Mg Tab PO 11/19/23 08:59 500 mg QAM BILLIE Administration Aspirin 81 mg 10/19/23 21:00 10/21/23 08:02 Aspirin 81 Mg Ectab PO 11/18/23 20:59 81 mg BID BILLIE Administration Carvedilol 6.25 mg 10/19/23 21:00 10/21/23 08:02 Carvedilol 6.25 Mg Tab PO 11/18/23 20:59 6.25 mg BID BILLIE Administration Docusate Sodium 100 mg 10/19/23 21:00 10/21/23 08:02 Docusate Sodium 100 Mg Cap PO 11/18/23 20:59 Not Given BID BILLIE Ezetimibe 10 mg 10/19/23 21:00 10/20/23 20:02 Ezetimibe 10 Mg Tab PO 11/18/23 20:59 10 mg QPM BILLIE Administration Fexofenadine HCl 180 mg 10/20/23 09:00 10/21/23 08:02 Fexofenadine Hcl 180 Mg Tab PO 11/19/23 08:59 180 mg QAM BILLIE Administration Hydrochlorothiazide 25 mg 10/20/23 09:00 10/20/23 08:44 Hydrochlorothiazide 25 Mg Tab PO 11/19/23 08:59 25 mg QAM BILLIE Administration Levothyroxine Sodium 25 mcg 10/20/23 06:30 10/20/23 05:42 Levothyroxine Sodium 25 Mcg Tablet PO 11/19/23 06:29 25 mcg [id number] BILLIE Administration Losartan Potassium 100 mg 10/20/23 09:00 10/21/23 08:01 Losartan Potassium 50 Mg Tab PO 11/19/23 08:59 100 mg QAM BILLIE Administration Montelukast Sodium 10 mg 10/19/23 21:00 10/20/23 20:01 Montelukast Sodium 10 Mg Tablet PO 11/18/23 20:59 10 mg HS BILLIE Administration Multivitamins 1 tab 10/20/23 09:00 10/21/23 08:02 Multivitamin Tab PO 11/19/23 08:59 1 tab QAM BILLIE Administration Ondansetron HCl 4 mg 10/19/23 13:57 10/21/23 09:16 Ondansetron Inj 2 Mg/Ml 2 Ml Vial IV 11/18/23 13:56 4 mg Q6H PRN Administration Nausea And Vomiting Pravastatin Sodium 20 mg 10/19/23 21:00 10/20/23 20:01 Pravastatin Sod 20 Mg Tab PO 11/18/23 20:59 20 mg QPM BILLIE Administration Sennosides 17.2 mg 10/19/23 21:00 10/20/23 20:02 Senna 8.6 Mg Tab PO 11/18/23 20:59 Not Given HS BILLIE Tramadol HCl 50 - 100 mg 10/19/23 13:57 10/21/23 09:15 Tramadol Hcl 50 Mg Tablet PO 11/18/23 13:56 100 mg Q4H PRN Administration Pain & Pre PT Trazodone HCl 50 mg 10/19/23 13:57 10/19/23 23:01 Trazodone Hcl 50 Mg Tab PO 11/18/23 13:56 50 mg HS PRN Administration Sleep (3) Chronic kidney disease, stage 3 Chronic kidney disease stage 3 subtype: stage 3a (GFR 45-59) Qualified Code(s): N18.31 - Chronic kidney disease, stage 3a
--- NOTE | 2023-10-21 15:34 | Discharge Summary ---
Date of Service October 21, 2023 Admission HPI Per Admitting Provider 83yo female with PMHx significant for HTN, CKD, high cholesterol, hypothyroid who presents with ongoing left knee pain. Pain is interfering with her daily activity. She has failed conservative measures and would like to proceed with surgery. Patient denies headaches, sweats, fevers, chills, double vision, blurred vision, cough, sore throat, dysphagia, chest pain, sob, wheezing, n/v/d/c, numbness, tingling, fatigue, urinary symptoms, mood disorders. ROS positive for left knee pain and stiffness. Admission Exam Per Admitting Provider Constitutional: well developed and well nourished; no acute distress Eyes: PERRL, conjunctivae normal, anicteric sclerae ENMT: external ear and nose normal, oropharynx normal Neck: trachea midline, no thyromegaly Respiratory: normal respiratory effort, lungs clear to auscultation Cardiovascular: RRR, no murmur, no edema Musculoskeletal: Left knee: moderate effusion, diffuse tenderness, ROM 0-130 degrees, stable to varus and valgus stress. Skin: no rashes, warm and dry Neurologic: patellar DTR's 2+ bilat, sensation intact Psychiatric: A+Ox3, euthymic affect Principal Diagnosis Left knee osteoarthritis Discharge Exam Left knee: JAH dressing is clean, dry, intact. Hemovac site with bloody drainage. New dressing applied. No active bleeding at this time. Continue daily dressing changes as needed to Hemovac site. Toes are mobile with good dorsiflexion. No calf tenderness. Distal neurovascular status and sensation is grossly intact. Discharge Data Allergies Allergy/AdvReac Type Severity Reaction Status Date / Time SUSANA Inhibitors Allergy Severe facial Verified 10/19/23 07:53 swelling, difficulty breathing Penicillins Allergy Severe hives, Verified 10/19/23 07:53 throat swelling quinapril Allergy Severe angioedema Verified 10/19/23 07:53 diltiazem Allergy Intermediate itching, Verified 10/19/23 07:53 rash meloxicam Allergy Unknown Verified 10/19/23 07:53 salicylates Allergy Unknown Verified 10/19/23 07:53 aliskiren [From [employer]] AdvReac Intermediate headaches Verified 10/19/23 07:53 citalopram AdvReac Intermediate apathy Verified 10/19/23 07:53 oxycodone AdvReac Intermediate GI upset Verified 10/19/23 07:53 codeine AdvReac Mild Gastrointestinal Verified 10/19/23 07:53 Upset hydrocodone AdvReac Unknown Nausea Verified 10/19/23 07:53 Consultations 10/17/23 11:50 Consult Hospitalist Routine Procedures Performed Operation Date: 10/19/23 09:45 Actual Procedures p Left Total Knee Arthroplasty(Left) - Reji Gasca MD Ordered Studies 10/19/23 05:00 US - OR guided needle placemen Routine Hospital Course (1) Primary osteoarthritis of left knee: Postop day #2 left total knee arthroplasty -PT/OT -Pain management as written -DVT prophylaxis: SCDs, teds, aspirin 81 mg twice daily -A.m. labs:Creatinine trending down from 1.5 yesterday p.m. to 1.35 this morning. Mild drop in hemoglobin today to 9.5 from 12 preop. Acute blood loss anemia due to surgical loss versus dilutional. Patient is asymptomatic. Leukocytosis resolved. -Discharge planning: Plan on discharge to [facility] today pending how she progresses with therapy if okay with medicine team. Postop day #1 left total knee arthroplasty -PT/OT -Pain management as written -DVT prophylaxis: SCDs, teds, aspirin 81 mg twice daily -A.m. labs are pending -Discharge planning: Patient is requesting inpatient rehab at [facility]. Case management consult in place. Patient stable for discharge from orthopedic standpoint once placement is arranged. Lab Results 10/20/23 10/20/23 10/21/23 Range/Units 08:43 15:40 06:23 WBC 12.60 H 8.49 (4.8-10.8) K/ul RBC 3.60 L 3.19 L (4.20-5.40) M/uL Hgb 10.5 L 9.4 L (12.0-16.0) g/dl Hct 32.9 L 29.4 L (37.0-47.0) % MCV 91.4 92.2 (80.0-100.0) fL MCH 29.2 29.5 (25.0-34.0) pg MCHC 31.9 L 32.0 (32.0-36.0) g/dL RDW Std Deviation 49.3 H 50.2 H (36.4-46.3) fL RDW Coeff of Aydee 14.8 H 15.0 H (11.5-14.5) % Plt Count 283 222 (130-400) K/uL MPV 9.9 10.0 (9.4-12.4) fL Sodium 138 137 138 (136-145) mmol/L Potassium 4.1 4.3 3.9 (3.5-5.1) mmol/L Chloride 105 105 108 H (98-107) mmol/L Carbon Dioxide 25 24 23 (21-32) mmol/L Anion Gap 8 8 7 (3-11) BUN 34 H 35 H 38 H (6-23) mg/dl Creatinine 1.29 H 1.56 H 1.35 H (0.6-1.2) mg/dl Est Cr Clr Drug Dosing 37.0 30.6 35.3 ml/min Est GFR ( Amer) 45.0 35.7 42.6 ml/min Est GFR (Non-Af Amer) 38.8 30.8 36.7 ml/min BUN/Creatinine Ratio 26.4 H 22.4 H 28.1 H (10-20) Glucose 166 H 98 88 (70-99(Fasting)) mg/dl Calcium 9.0 9.1 8.5 L (8.6-10.3) mg/dl Total Time Total Time Spent Total Time Spent (In Minutes): 20 Discharge Plan Discharge Items Patient Disposition: Transfer [facility] Reason For Visit: Ostoearthrits Knee left Discharge Diagnosis: Left knee osteoarthritis Activity: Per Instructions section Non-emergency contact: Surgeon Call non-emergency contact if: you have any medication questions, your pain is not controlled, you have a fever, your temperature is above 101, your wound has increased redness and your wound has increased drainage Follow-up/Referrals: Rajehs Griffith DO [Primary Care Provider] - Diet: Regular Addtl Attending Provider Instructions: ACTIVITY RECOMMENDATIONS: SELF CARE INSTRUCTIONS AFTER TOTAL KNEE REPLACEMENT A. You may need to continue a physical therapy program after discharge from the hospital. There are several options available to you. Your doctor will assist you in selecting the best one for you. 1. An out-patient facility 2 to 3 times a week for therapy or home therapy. 2. Continue working on all exercises taught to you in the hospital. Your goals should be to increase bending of your knee to 90 degrees and beyond and to fully straighten your knee. B. You may progress at your own pace from walking with a walker or crutches to a cane; then to no assistive devices. C. Make walking a part of your daily routine. Be up as much as comfortable with rest periods throughout the day. Rest with leg elevation is very important. Use the ice wrap frequently for the first 3-4 weeks. D. There are no restrictions on activities. You may ride in a car, shop, participate in lance crewmember/mlrs sergeant and all social activities. E. Wear the long elastic stockings (TERI hose) 20 hours a day for 2 weeks after surgery. They can be removed several times a day for laundering and for a bath. F. You may shower, no tub baths until cleared by your doctor. SPECIAL CARE INSTRUCTIONS: VERY IMPORTANT TO READ AND REVIEW A. There are a few signs you need to watch for after you are home. Call [facility] if you notice any of the followin. Increased severe knee pain. Some pain is expected especially when you exercise. 2. Increased swelling in your leg or knee; pain or swelling of the calf muscle in either lower leg. 3. Any fluid drainage from the incision. 4. Shortness of breath or chest pain. B. Please call [facility] at if you have any concerns or questions about your operation or recovery. The doctor or his nurse will return your call promptly. C. You must take antibiotics before dental work, bladder, bowel or other surgery. Your doctor will provide you with a permanent care to carry describing this precaution. IMPORTANT: * REMEMBER TO TAKE ASPIRIN, 81 MG, TWICE DAILY FOR 4 WEEKS UNLESS OTHERWISE DIRECTED. THIS IS YOUR BLOOD THINNER. * HIGH RISK PATIENTS MAY BE PRESCRIBED A STRONGER BLOOD THINNER. THIS WILL BE PROVIDED AT DISCHARGE. * CALL IF INCREASED PAIN, REDNESS, DRAINAGE OR FEVER GREATER THAT 101. * WEAR TERI HOSE 20 HOURS PER DAY FOR 2 WEEKS. There is a large suction dressing covering your incision. This will help pull any excess drainage from the wound and allow your incision to heal properly. You may shower with this if you can keep the unit outside of the shower. If any bleeding or leakage is noted please call your doctor's office. This will remain on your incision for 7 days and then should be removed. This can be done yourself or by the home nursing staff if applicable. The entire unit is disposable once removed. Once removed, keep incision clean and dry. If redness or drainage is noted, please call your surgeon. . IF INCISION IS LEAKING THROUGH DRESSING, CALL THE OFFICE . FOLLOW UP VISIT: If appointment is not already scheduled: Please call [facility] to make a follow-up appointment for 2 weeks after your surgery at . Stand-Alone Forms: My [facility] Skilled Items Patient informed of condition?: Yes DNR: No Discharge Level of Care: Skilled Communicable Disease: No Discharge Prognosis: Improving Lines: None Urinary Catheter: No Medications and DC Order Prescriptions: New acetaminophen [Tylenol Extra Strength] 500 mg Tablet 1,000 mg PO Q8 Qty: 60 0RF aspirin 81 mg Tablet,Delayed Release (Dr/Ec) 81 mg PO BID Qty: 60 0RF ondansetron 4 mg tablet,disintegrating 4 mg PO Q8H PRN (Reason: nausea and vomiting) Qty: 20 0RF tramadol 50 mg Tablet 50 - 100 mg PO .Q4h-6h MDD 5 PRN (Reason: pain) Qty: 30 0RF Rx Instructions: Ongoing Dr. Elo galvin supervising Continued carvedilol 6.25 mg Tablet 6.25 mg PO BID Rx Instructions: must administer with a meal/food fexofenadine 180 mg Tablet 180 mg PO QAM amlodipine 5 mg Tablet 5 mg PO BID ascorbic acid (vitamin C) [Vitamin C] 500 mg Tablet 500 mg PO QAM hydrochlorothiazide 25 mg Tablet 25 mg PO QAM losartan 100 mg Tablet 100 mg PO QAM coQ10 (ubiquinol) 200 mg Capsule 200 mg PO QAM Osteo Bi-Flex Triple Strength 750 mg-644 mg- 30 mg-1 mg Tablet 1 tab PO BID multivitamin Tablet 1 tab PO HS montelukast 10 mg Tablet 10 mg PO HS pravastatin 20 mg Tablet 20 mg PO QPM ezetimibe 10 mg Tablet 10 mg PO QPM trazodone 50 mg Tablet 50 mg PO HS PRN (Reason: Sleep) melatonin 5 mg Tablet 5 - 10 mg PO HS PRN (Reason: Sleep) levothyroxine 25 mcg Tablet 25 mcg PO 5XWK Patient Comments: takes in the am levothyroxine 25 mcg Tablet 50 mcg PO 2XWK Patient Comments: takes on /monday am diphenhydramine HCl [Benadryl] 25 mg Capsule 25 - 50 mg PO HS PRN (Reason: Sleep) Discontinued aspirin 81 mg Capsule 81 mg PO QPM acetaminophen [Tylenol Arthritis] 650 mg Tablet Extended Release 1,300 mg PO Q12H PRN (Reason: Pain) Discharge Orders: Discharge Order (Routine); Ordered 10/21/23 Ordered By: Ambrocio Allison Admission Data Admit Date/Time: 10/21/23 09:29 Attending Provider: Reji Gasca Admit Provider: Reji Gasca Primary Care Provider: Rajesh Griffith Other Providers: Dori Ts[place] Other Interventions: Discharge Summary Assessment (RN) Last Done: 10/21/23 14:04
[2023-10-22] MEDS ORDERED: LEVOTHYROXINE SODIUM 50 MCG TABLET PO SCH (06:30)
== END 2023-10-21 15:20 | DRG 470 ==
LOC: ASU 07:04 → 3N 07:04